=== PATIENT | male | born 1970 | race Caucasian/White ===

== ENCOUNTER 2018-07-07 16:04 | Inpatient (IN) | payer BC ==
[2018-07-07] MEDS ORDERED: Unasyn 3GM / NaCl 100ML 3 GM/100 ML IVPB IV STA (16:28)
[2018-07-07] MEDS ORDERED: TYLENOL 325 MG PO STA (16:28)
--- NOTE | 2018-07-07 16:37 | ERPHSYRPT ---
- History of Present Illness Time Seen by Provider: 07/07/18 16:20 Source: patient Exam Limitations: no limitations Patient Subjective Stated Complaint: Pt states "I have been feeling bad with body aches and went to [facility] and they sam blood and said I had a high white count and to get into the ED." Triage Nursing Assessment: PT alert and oriented X 3, skin pwd PT ambulates with a limp. Pt slightly tachypniec. PT has walking boot on his right foot. PT has wound noted to right foot. Physician History: patient with fever and chills- seen in OP clinic- elevated wBC and neg flu sent to ED fro evaluation- hx of Charcot foot -right- has sore x 3 weeks- drainage; no recent trauma or travel; no sore throat; cough productive brown; no sob; no N &V; no diarrhea; no known exposures Timing/Duration: today, yesterday (onset), worse Fever Severity: moderate Fever Therapy DOUBLE BACKER: Ibuprofen Associated Symptoms: cough, diaphoresis, headache, muscle aches, No nausea/ vomiting, No rhinorrhea, No shortness of breath, No sore throat, No stiff neck, No syncope, No weakness International travel in last 2 weeks: No Allergies/Adverse Reactions: No Known Drug Allergies Allergy (Verified 07/07/18 16:30) Home Medications: Amlodipine Besylate 10 mg PO DAILY 07/07/18 [History] Fenofibrate Nanocrystallized [Fenofibrate] 48 mg PO DAILY 07/07/18 [History] Gabapentin 600 mg PO DAILY 07/07/18 [History] Insulin Glargine,Hum.rec.anlog [Lantus Solostar] 100 units IM DAILY 07/07/18 [ History] Lisinopril 40 mg PO DAILY 07/07/18 [History] cloNIDine HCl [Clonidine HCl] 0.1 mg PO DAILY 07/07/18 [History] Hx Tetanus, Diphtheria Vaccination/Date Given: Yes Hx Influenza Vaccination/Date Given: Yes Hx Pneumococcal Vaccination/Date Given: No Immunizations Up to Date: Yes - Review of Systems Constitutional: Chills Eyes: No Symptoms Ears, Nose, & Throat: No Symptoms Respiratory: Cough, No Dyspnea, No Wheezing Cardiac: No Chest Pain, No Palpitations, No Syncope Abdominal/Gastrointestinal: No Abdominal Pain, No Nausea, No Vomiting, No Diarrhea Genitourinary Symptoms: No Dysuria, No Frequency, No Hematuria, No Hesitancy Musculoskeletal: Myalgias, No Back Pain, No Fall, No Injury, No Joint Pain Skin: Other (open ulcer bottom lateral left foot) Neurological: Headache, No Dizziness, No Focal Weakness, No Seizure, No Vertigo Psychological: No Symptoms Endocrine: No Symptoms Hematologic/Lymphatic: No Symptoms Immunological/Allergic: No Symptoms - Past Medical History Pertinent Past Medical History: Yes Neurological History: No Pertinent History ENT History: No Pertinent History Cardiac History: Hypertension Respiratory History: Pneumonia Endocrine Medical History: Diabetes Type II Musculoskeletal History: Other GI Medical History: No Pertinent History History: No Pertinent History Psycho-Social History: No Pertinent History Male Reproductive Disorders: No Pertinent History - Past Surgical History Past Surgical History: No Neuro Surgical History: No Pertinent History Cardiac: No Pertinent History Respiratory: No Pertinent History Gastrointestinal: No Pertinent History Genitourinary: No Pertinent History Musculoskeletal: No Pertinent History Male Surgical History: No Pertinent History - Social History Smoking Status: Never smoker Exposure to second hand smoke: Yes Alcohol Use: None Drug Use: none Patient Lives Alone: No Significant Family History: no pertinent family hx - Nursing Vital Signs Nursing Vital Signs: Initial Vital Signs Temperature 101.8 F 07/07/18 16:21 Pulse Rate 114 H 07/07/18 16:21 Respiratory Rate 22 07/07/18 16:21 Blood Pressure 179/88 07/07/18 16:21 O2 Sat by Pulse Oximetry 94 L 07/07/18 16:21 Pain Scale Pain Intensity 6 - Physical Exam General Appearance: moderate distress, alert, obese, other (ill appearing) Eye Exam: PERRL/EOMI, eyes nml inspection, No photophobia ENT Exam: normal ENT inspection, no apparent trauma, hearing grossly normal, TMs normal, pharynx normal, airway intact, No nasal congestion, No nasal drainage, No pharyngeal erythema, No tonsillar exudate, No trismus Neck Exam: normal inspection, non-tender, supple, full range of motion, trachea midline, No JVD Respiratory Exam: lungs clear, no respiratory distress, no accessory muscle use , decreased breath sounds, decreased air movement, No normal breath sounds, No chest non-tender, No respiratory distress, No crackles/rales, No rhonchi, No stridor, No wheezing, No pleural rub Cardiovascular/Chest Exam: normal heart sounds, regular rate/rhythm, normal peripheral pulses, tachycardia (114), No edema, No JVD Gastrointestinal/Abdominal Exam: soft, non tender, no distention, no guarding, no organomegaly, normal bowel sounds, No distended, No guarding, No rebound, No hepatomegaly Rectal Exam: deferred Extremity Exam: non-tender, normal range of motion, normal capillary refill, no calf tenderness, no pedal edema, No normal inspection (left foot changes of Charcot foot with open ulcer bottom left heel- culture take), No calf tenderness , No isabel's sign Neurologic Exam: alert, oriented x 3, cooperative, fuel cell designer II-XII nml as tested, normal mood/affect, nml cerebellar function, nml station & gait Skin Exam: normal color, warm, dry, decubitus (post bottom left foot), No rash, No petechiae, No cyanosis Lymphatic: No adenopathy SpO2 Interpretation: borderline oxygenation SpO2: 94 O2 Delivery: Room Air - Course Nursing assessment & vital signs reviewed: Yes - Radiology Exams Chest X-ray Interpretation: Reviewed by me, Teleradiologist Report, Negative, Other ( chronic changes only) Ordered Tests: Active Orders 24 hr Category Date Time Status Bedrest with BRP/BSC ROUTINE Activity 07/07/18 17:44 Ordered Accucheck ACHS Care 07/07/18 17:42 Ordered Accucheck STAT Care 07/07/18 16:28 Active Call Admit Doctor for Orders ON ADMISSION Care 07/07/18 17:43 Ordered Code Status Order ROUTINE Care 07/07/18 17:42 Ordered IV Care Q6H Care 07/07/18 17:42 Ordered IV Insertion STAT Care 07/07/18 16:[address] in Observation ROUTINE Care 07/07/18 17:42 Ordered Pulse Oximetry (ED) STAT Care 07/07/18 16:28 Active Rectal Temperature STAT Care 07/07/18 16:28 Active Saman Evans Apply ROUTINE Care 07/07/18 17:42 Ordered Weight,Daily 0600 Care 07/07/18 17:42 Ordered 2000 Calorie ADA Diet 07/07/18 Dinner Ordered CHEST 1 VIEW (PORTABLE) Stat Exams 07/07/18 16:28 Completed BLOOD CULTURE Stat Lab 07/07/18 16:38 Received CMP Stat Lab 07/07/18 16:36 Completed CULTURE,WOUND Stat Lab 07/07/18 16:39 Received Lactic Acid Stat Lab 07/07/18 16:28 Results Urinalysis with Microscopy Stat Lab 07/07/18 Uncollected Transfer Order Routine Transfer 07/07/18 Ordered Medication Summary Generic Name Dose Route Start Last Admin Trade Name Freq PRN Reason Stop Dose Admin Lactated Ringer's 1,000 mls @ 999 mls/hr 07/07/18 16:30 07/07/18 17:17 Lactated Ringers IV 07/07/18 19:30 999 mls/hr .Q1H1M JAMES Administration Azithromycin 500 mg in 250 mls @ 250 mls/hr 07/07/18 17:41 Zithromax 500 Mg/ 250 Ml Nacl Premix IV 07/07/18 18:40 STAT STA Discontinued Medications Generic Name Dose Route Start Last Admin Trade Name Freq PRN Reason Stop Dose Admin Acetaminophen 650 mg 07/07/18 16:28 07/07/18 16:53 Tylenol 325 Mg PO 07/07/18 16:29 650 mg STAT STA Administration Acetaminophen Confirm 07/07/18 16:49 Tylenol 325 Mg Administered 07/07/18 16:50 Dose 650 mg .ROUTE .STK-MED ONE Ampicillin Sodium/Sulbactam Sodium 3 gm in 100 mls @ 200 mls/hr 07/07/18 16: 28 07/07/18 16:54 Unasyn 3gm / Nacl 100ml IV 07/07/18 16:57 200 mls/hr STAT STA 200 mls/hr Administration Ampicillin Sodium/Sulbactam Sodium Confirm 07/07/18 16:49 Unasyn 3gm / Nacl 100ml Administered 07/07/18 16:50 Dose 3 gm in 100 mls @ ud .ROUTE .STK-MED ONE Lab/Rad Data: Laboratory Result Diagrams 07/07/18 16:36 Laboratory Results 07/07/18 07/07/18 Range/Units 16:36 16:28 Sodium 135 L (137-145) mmol/L Potassium 4.2 (3.5-5.1) mmol/L Chloride 108 H (98-107) mmol/L Carbon Dioxide 17 L (22-30) mmol/L Anion Gap 14.2 (5-15) MEQ/L BUN 37 H (9-20) mg/dL Creatinine 2.59 H (0.66-1.25) mg/dL Estimated GFR 28.3 ML/MIN Glucose 242 H (74-106) mg/dL Lactic Acid 2.0 (0.4-2.0) Calcium 8.7 (8.4-10.2) mg/dL Total Bilirubin 1.10 (0.2-1.3) mg/dL AST 22 (17-59) U/L ALT 20 (0-50) U/L Alkaline Phosphatase 119 (38-126) U/L Serum Total Protein 7.0 (6.3-8.2) g/dL Albumin 3.1 L (3.5-5.0) g/dL reviewed - Progress Progress: re-examined (after meds and IV fluids) Progress Note: 07/07/18 16:38 sent from op clinic with elevated WBC - flu test neg; will assume septic- treat fever- push fluids- start ATBS check lactate and get CXR 07/07/18 16:58 CXR unremarkable; WBC 26.5 left shift H?H ; plt 262; lactate 2.0 will continue fluids' monitor and recheck 07/07/18 17:20 family at bedside; no changes on exam; renal function off bun/cr = 37/2.59; low Na 135; K= ok; no anion gap 07/07/18 17:39 Dr Hyatt consulted and will place on OBS; patient and family notified Discussed with : Edmar (consulted adn will place in OBS) Will see patient in: hospital (observation) Counseled pt/family regarding: lab results, diagnosis, need for follow-up, rad results - Departure Departure Disposition: Observation Clinical Impression: FUO (fever of unknown origin), elevated WBC 26.5, elevated lactate 2.0, Renal failure (ARF), acute on chronic, Foot ulcer Condition: Fair Critical Care Time: No Referrals: DONATO ORTIZ [Primary Care Provider] - LEANDRO HYATT [ACTIVE STAFF] -
[2018-07-07] MEDS ORDERED: TYLENOL 325 MG ONE (16:49)
[2018-07-07] MEDS ORDERED: Lactated Ringers 1,000 ML IV ONE (16:49)
[2018-07-07] MEDS ORDERED: Unasyn 3GM / NaCl 100ML 3 GM/100 ML IVPB ONE (16:49)
[2018-07-07] MEDS: Lactated Ringers 1,000 ML IV SCH ×3 (16:54→18:47)
[2018-07-07 17:00] LABS: ALBUMIN 3.1 g/dL (3.5-5.0); ANION GAP 14.2 MEQ/L (5-15); BILIRUBIN,TOTAL 1.1 mg/dL (0.2-1.3); Calcium 8.7 mg/dL (8.4-10.2); Creatinine 1 2.59 mg/dL (0.66-1.25); Potassium 4.2 mmol/L (3.5-5.1)
--- NOTE | 2018-07-07 17:05 | XRAY ---
Indication: Possible sepsis. Comparison: November 01, 2009. Portable apical lordotic chest is clear again with a few incidental tiny calcified granulomas. Heart and mediastinal structures within normal limits for AP portable technique again with paratracheal calcified node. Bony thorax intact again with mild degenerative changes. Impression: Nonacute chest with chronic features.
[2018-07-07] MEDS ORDERED: Lactated Ringers 2,000 ML IV ONE (17:11)
[2018-07-07] MEDS ORDERED: Zithromax 500 MG/ 250 ML NaCl Premix 500 MG/250 ML IVPB IV STA (17:41)
[2018-07-07] MEDS ORDERED: Zithromax 500 MG/ 250 ML NaCl Premix 500 MG/250 ML IVPB IV ONE (17:50)
[2018-07-07] MEDS ORDERED: PHARMACY DOSING REQUIRED: VANCOMYCIN IV ONE (18:49)
[2018-07-07] MEDS ORDERED: PHARMACY DOSING REQUEST MC ONE (18:49)
[2018-07-07] MEDS: Sodium Chloride 0.9% 1000 ML 1,000 ML IV SCH (20:30)
[2018-07-07] MEDS ORDERED: Vancomycin 1GM/ Ns 250ML*** 500 ML IV ONE (20:55)
[2018-07-07] MEDS ORDERED: Zosyn 2.25 GM IV ONE (20:56)
[2018-07-07] MEDS ORDERED: D5w 100ML Mini Bag 100 ML 100 ML IV ONE (20:56)
[2018-07-07] MEDS ORDERED: VANCOCIN 1 GM VIAL*** 2 GM in Sodium Chloride 0.9% 250 ML 250 ML IV ONE (21:00)
[2018-07-07] MEDS: Catapres 0.1 MG PO SCH (21:06)
[2018-07-07] MEDS ORDERED: Lantus Insulin SQ SCH (22:00)
[2018-07-07] MEDS: NovoLOG Insulin SQ PRN (22:02)
[2018-07-07] MEDS: NEURONTIN 300 MG PO PRN (22:07)
[2018-07-08] MEDS: TYLENOL 325 MG PO PRN ×4 (01:20→22:28)
[2018-07-08] MEDS: Zosyn 2.25 GM 2.25 GM in D5w 100ML Mini Bag 100 ML 100 ML IV SCH ×4 (01:25→17:00)
[2018-07-08 05:11] LABS: Hematocrit 41.9 % (42-50); Hemoglobin 13.8 gm/dl (12.5-18.0); Mean Cell Volume 86.6 fl (78-100); Mean Corpuscular Hemoglobin 28.5 pg (26-32); Mean Corpuscular Hgb Concent. 32.9 g/dl (32-36); Mean Platelet Volume 9.4 fl (6-9.5); Platelet Count 228 K/mm3 (150-450); Red Blood Count 4.84 M/mm3 (4.1-5.6); Red Cell Distribution Width 15.1 % (11.5-14.0); White Blood Count 22.8 K/mm3 (4.0-10.5)
[2018-07-08 05:28] LABS: ANION GAP 11.3 MEQ/L (5-15); Calcium 7.9 mg/dL (8.4-10.2); Creatinine 1 2.51 mg/dL (0.66-1.25); Potassium 4.3 mmol/L (3.5-5.1)
[2018-07-08 05:46] LABS: Appearance CLOUDY (CLEAR); Bilirubin NEGATIVE (NEGATIVE); Blood MODERATE Ery/ul (0-5); Glucose >=500 mg/dL (NEGATIVE); Hyaline Casts >50 /LPF (0-2); Ketones NEGATIVE (NEGATIVE); Leukocyte Esterase NEGATIVE (NEGATIVE); Mucus SLIGHT /HPF (NEGATIVE); Nitrite NEGATIVE (NEGATIVE); Protein,Urine Dip >=500 (Negative); Specific Gravity 1.029 (1.005-1.025); Urobilinogen NEGATIVE mg/dL (0-1)
[2018-07-08 06:05] LABS: ANISOCYTOSIS 2+; BAND 19 % (0.0-2.0); Eosinophil 3 % (0.00-3.0); Lymphocytes 1 % (24-44); Monocyte 7 % (0.0-12.0); Neutrophils 70 % (36.-66.); Poikilocytosis 1+; Total Cells Counted 100
[2018-07-08 06:06] LABS: Platelet Estimate NORMAL (NORMAL)
[2018-07-08] MEDS ORDERED: D5w 100ML Mini Bag 100 ML 100 ML IV ONE (06:35)
[2018-07-08] MEDS ORDERED: Zosyn 2.25 GM IV ONE (06:35)
[2018-07-08] MEDS: NovoLOG Insulin SQ PRN (07:48)
[2018-07-08] MEDS: Lantus Insulin SQ SCH ×2 (07:48→22:19)
[2018-07-08] MEDS: MORPHINE SULFATE 2 MG INJ IV PRN ×4 (07:56→22:27)
--- NOTE | 2018-07-08 09:10 | HP ---
HISTORY OF PRESENT ILLNESS: This is a 48 year-old patient without a physician in the local area. He usually sees Dr. Jesus Alberto Boykin in [facility]. He presented first to [facility] and then to the emergency department. He reports starting Thursday night he started to have a fever and chills. He went to [facility] yesterday and was seen and had a STAT CBC drawn where his white blood cell count was elevated. He was then told to go to the emergency department for further evaluation and treatment. The patient reports he had a sore on his right foot for the past two weeks that he had seen Dr. Willis for starting last week and they are putting topical antibiotic on this b.i.d. He reports he is putting MediHoney and iodine on it. He is not on any oral antibiotics for that. The patient denies having any central lines, PICC lines or any kind of hardware. He does have a history of osteomyelitis of his right foot that was due to Staphylococcus aureus over a year ago. He reports he had a cough for a week that was productive of sputum that is brown-oliver in color. The patient denies any abdominal pain. No nausea or vomiting. Dr. Boykin manages his diabetes. REVIEW OF SYSTEMS: He has had no dyspnea. No wheezing. No dysuria. No abdominal pain. His appetite has been good. Otherwise review of systems is negative. PAST MEDICAL HISTORY: Hypertension, diabetes mellitus type 2, Charcot foot on the left, history of osteomyelitis. PAST SURGICAL HISTORY: He reports five years ago he had fifth digit of his left foot removed. He reports one year ago he had surgery on his right foot for infection. MEDICATIONS: Please see the medication reconciliation list which I have reviewed. ALLERGIES: NKDA. SOCIAL HISTORY: No tobacco. No alcohol use. He lives with his mom and dad. He works at a place called [employer] at [employer]. FAMILY HISTORY: His mother is living and is healthy. His father is living and has diabetes. PHYSICAL EXAMINATION: VITAL SIGNS: Temperature current 101.5F, temperature max 101.5F, heart rate 102 to 111, respiratory rate 18, blood pressure 146 to 184 over 73 to 85, weight 149.3 kg. Oxygen saturation 91 to 94% on room air. GENERAL: The patient is a pleasant man lying in bed in no acute distress. CVS: He has a regular rate and rhythm. No murmurs, gallops or rubs. CHEST: Clear to auscultation bilaterally. No crackles or wheezes. ABDOMEN: Obese, soft, nontender, nondistended with normal bowel sounds. EXTREMITIES: His right foot has a deformity, some redness and swelling around his toes. On the lateral aspect he has an open 3 x 3 cm ulcer that is draining some serosanguinous fluid. He denies any tenderness of his foot. LABORATORY DATA AND TESTS: His white blood cell count is 22,800 with 70% neutrophils, 19% bands. Sodium 134, creatinine 2.5, glucose 236. UA 6 to 10 white blood cells, greater than 500 glucose. Blood cultures were also growing gram-positive cocci. He has a wound culture pending. I added a urine culture today to the urine he had done in the emergency room. ASSESSMENT AND PLAN: 1) SEPSIS: He was started on Zosyn and Vancomycin with family to help dose yesterday. His blood pressure is stable. Will continue Tylenol as needed for fever. Continue with telemetry. Will ask PT to see him for his wound. I will order sputum culture as well. He is on IV fluids at a rate of 120 ml/hour. I plan to recheck blood work in the morning and continue with close monitoring. 2) DIABETES MELLITUS TYPE 2: Will continue with insulin. His hemoglobin A1C was 6.98 on admission. He may be having some hyperglycemia at this time due to the infection. 3) DIABETIC FOOT ULCER: Will ask PT to see him for evaluation and treatment and have an x-ray of his right foot to try to look for possible osteomyelitis. 4) HYPERTENSION: Will continue with home antihypertensive.
--- NOTE | 2018-07-08 09:12 | XRAY ---
Indication: Ulcer. Surgery 1 year ago for infection. Comparison: None 3 nonweightbearing views demonstrates osteopenia and marked chronic appearing deformity mid to hindfoot including ankle joint. 3rd-5th metatarsals and multiple tarsal bones are absent with multiple round radiopacities presumed postoperative. Diffuse soft tissue swelling/edema and scattered vascular calcifications. No acute fracture, suspicious bony lesions or osseous destructive process.
[2018-07-08] MEDS: NORVASC 5 MG PO SCH (09:49)
[2018-07-08] MEDS: ENOXAPARIN SODIUM SQ SCH (09:49)
[2018-07-08] MEDS: Tricor 145 MG PO SCH (09:50)
[2018-07-08] MEDS: Catapres 0.1 MG PO SCH ×2 (09:50→22:18)
[2018-07-08] MEDS: Sodium Chloride 0.9% 1000 ML 1,000 ML IV SCH ×3 (09:56→16:57)
[2018-07-08] MEDS ORDERED: Zestril 20 MG PO SCH (10:00)
[2018-07-08] MEDS: VANCOCIN 1 GM VIAL*** 1.5 GM in Sodium Chloride 0.9% 500 ML 500 ML IV SCH (18:33)
[2018-07-09] MEDS: Zosyn 2.25 GM 2.25 GM in D5w 100ML Mini Bag 100 ML 100 ML IV SCH ×4 (03:03→17:41)
[2018-07-09] MEDS: TYLENOL 325 MG PO PRN (03:11)
[2018-07-09] MEDS: MORPHINE SULFATE 2 MG INJ IV PRN ×4 (04:17→20:38)
[2018-07-09] MEDS: Sodium Chloride 0.9% 1000 ML 1,000 ML IV SCH ×2 (04:32→20:38)
[2018-07-09 06:10] LABS: Hematocrit 37.9 % (42-50); Hemoglobin 12.2 gm/dl (12.5-18.0); Mean Cell Volume 89.2 fl (78-100); Mean Corpuscular Hemoglobin 28.7 pg (26-32); Mean Corpuscular Hgb Concent. 32.2 g/dl (32-36); Platelet Count 224 K/mm3 (150-450); Red Blood Count 4.25 M/mm3 (4.1-5.6); Red Cell Distribution Width 15.4 % (11.5-14.0); White Blood Count 13.9 K/mm3 (4.0-10.5)
[2018-07-09 06:26] LABS: ANION GAP 11.2 MEQ/L (5-15); Calcium 7.5 mg/dL (8.4-10.2); Creatinine 1 3.01 mg/dL (0.66-1.25)
[2018-07-09 06:46] LABS: BAND 8 % (0.0-2.0); Eosinophil 2 % (0.00-3.0); Lymphocytes 4 % (24-44); Monocyte 4 % (0.0-12.0); Neutrophils 82 % (36.-66.); Total Cells Counted 100
[2018-07-09 06:47] LABS: Platelet Estimate NORMAL (NORMAL)
[2018-07-09] MEDS: Lantus Insulin SQ SCH ×2 (08:22→20:45)
--- NOTE | 2018-07-09 08:40 | PCM.NOTE ---
Date and Time: 07/09/18833 Subjective Assessment: Patient reports his fever broke this AM and he feels better. He reports his appetite has been ok. He reports he always has pain in his right foot. - Review of Systems Constitutional: Fever Eyes: No Symptoms Ears, Nose, & Throat: No Symptoms Respiratory: No Symptoms Cardiac: No Symptoms Abdominal/Gastrointestinal: No Symptoms Genitourinary Symptoms: No Symptoms Musculoskeletal: No Symptoms Skin: No Symptoms Objective Exam General Appearance: no apparent distress, alert, obese Neurologic Exam: alert, cooperative, normal mood/affect Skin Exam: normal color, warm, dry, other (right foot dressed; obvious deformity (chronic)) Respiratory Exam: normal breath sounds, lungs clear, No crackles/rales, No rhonchi, No wheezing Cardiovascular Exam: regular rate/rhythm, normal heart sounds, No murmur, No friction rub, No gallop Gastrointestinal/Abdomen Exam: soft, normal bowel sounds, No tenderness, No distention OBJECTIVE DATA Vital Signs: Vital Signs - 24 hr Temp Pulse Resp BP Pulse Ox 07/09/18 07:08 99.9 F 94 H 21 136/66 92 L 07/09/18 04:00 102.2 F 105 H 20 128/71 91 L 07/09/18 00:23 102.9 F 117 H 20 132/68 94 L 07/08/18 20:00 102.5 F 104 H 20 125/81 94 L 07/08/18 16:31 101.2 F 105 H 22 148/75 97 07/08/18 12:00 100.7 F 99 H 20 169/76 94 L Pain Assessment - Last Documented Pain Intensity 3 Pain Scale Used 0-10 Pain Scale Intake and Output: Intake & Output 07/07/18 07/08/18 07/09/18 07/10/18 06:59 06:59 06:59 06:59 Intake Total 4399 Output Total 800 600 Balance -800 3799 Weight 149.3 kg Lab Results: Accuchecks Date 07/09/18 Date 07/08/18 Date 07/08/18 Time 21:00 Time 16:07 Time 11:52 Accucheck Value: 200 Accucheck Value: 204 Accucheck Value: 207 Lab Results-Last 24 Hours 07/09/18 07/09/18 Range/Units 05:48 05:48 WBC 13.9 H (4.0-10.5) K/mm3 RBC 4.25 (4.1-5.6) M/mm3 Hgb 12.2 L (12.5-18.0) gm/dl Hct 37.9 L (42-50) % MCV 89.2 (78-100) fl MCH 28.7 (26-32) pg MCHC 32.2 (32-36) g/dl RDW 15.4 H (11.5-14.0) % Plt Count 224 (150-450) K/mm3 MPV 10.0 H (6-9.5) fl Segmented Neutrophils 82 H (36.-66.) % Band Neutrophils 8 H (0.0-2.0) % Lymphocytes (Manual) 4 L (24-44) % Monocytes (Manual) 4 (0.0-12.0) % Eosinophils (Manual) 2 (0.00-3.0) % Platelet Estimate NORMAL (NORMAL) RBC Morphology NORMAL Sodium 135 L (137-145) mmol/L Potassium 4.0 (3.5-5.1) mmol/L Chloride 108 H (98-107) mmol/L Carbon Dioxide 19 L (22-30) mmol/L Anion Gap 11.2 (5-15) MEQ/L BUN 37 H (9-20) mg/dL Creatinine 3.01 H (0.66-1.25) mg/dL Estimated GFR 23.8 ML/MIN Glucose 156 H (74-106) mg/dL Calcium 7.5 L (8.4-10.2) mg/dL Radiology Exams: Radiology Procedures Category Date Time Status CHEST 1 VIEW (PORTABLE) Stat Exams 07/07/18 16:28 Completed FOOT (MINIMUM 3 VIEWS) Urgent Exams 07/08/18 08:43 Completed MRI LOWER EXT JOINT W&WO CON [MRI] Routine Exams 07/09/18 Ordered Assessment/Plan (1) Sepsis Current Visit: No Status: Acute Assessment & Plan: WBC improving with IV zosyn and Vancomcyin. Blood culture ID and sensitivity pending. Wound culture growing Staph aureus susceptible to Pencillin and vancomycin. X-ray of foot did not who osteo but course of ulcer is fairly recent. Will check MRI to rule out osteomyelitis as this would affect how long a course of antibiotics he is on. Will decrease IV fluids. Continue close monitoring. (2) Diabetic foot ulcer associated with type 2 diabetes mellitus Current Visit: No Status: Acute Assessment & Plan: Continue PT; also treatment as above for sepsis and he will need to follow up with Dr. Willis as an outpatient. We do not have a engagement director that comes to our hospital. Code(s): E11.621 - TYPE 2 DIABETES MELLITUS WITH FOOT ULCER; L97.509 - NON- PRESSURE CHRONIC ULCER OTH PRT UNSP FOOT W UNSP SEVERITY (3) Type II diabetes mellitus, well controlled Current Visit: Yes Status: Acute Assessment & Plan: Continue current insulin doses. Code(s): E11.9 - TYPE 2 DIABETES MELLITUS WITHOUT COMPLICATIONS (4) Renal failure (ARF), acute on chronic Current Visit: Yes Status: Acute Assessment & Plan: Will stop lisinopril. Antibiotics are being dosed for his renal impairment. May need to see contact lens manufacturer if creatinine does not improve. Code(s): N17.9 - ACUTE KIDNEY FAILURE, UNSPECIFIED; N18.9 - CHRONIC KIDNEY DISEASE, UNSPECIFIED (5) Hypertension Current Visit: Yes Status: Acute Assessment & Plan: Currently well controlled. Code(s): I10 - ESSENTIAL (PRIMARY) HYPERTENSION (6) Charcot foot due to diabetes mellitus Current Visit: Yes Status: Acute Code(s): E11.610 - TYPE 2 DIABETES MELLITUS W DIABETIC NEUROPATHIC ARTHROPATHY
[2018-07-09] MEDS: Tricor 145 MG PO SCH (09:45)
[2018-07-09] MEDS: NORVASC 5 MG PO SCH (09:45)
[2018-07-09] MEDS: ENOXAPARIN SODIUM SQ SCH (09:45)
[2018-07-09] MEDS: Catapres 0.1 MG PO SCH ×2 (09:46→20:45)
[2018-07-09] MEDS ORDERED: TROUGH DRUG LEVELS IJ ONE (11:00)
[2018-07-09] MEDS: VANCOCIN 1 GM VIAL*** 1.5 GM in Sodium Chloride 0.9% 500 ML 500 ML IV SCH (13:09)
[2018-07-09] MEDS: TYLENOL EXTRA STRENGTH 500 MG PO PRN (17:41)
[2018-07-09] MEDS: NovoLOG Insulin SQ PRN (20:46)
[2018-07-09] MEDS: NEURONTIN 300 MG PO PRN (23:59)
[2018-07-10] MEDS: TYLENOL EXTRA STRENGTH 500 MG PO PRN ×2 (03:13→20:21)
[2018-07-10 06:05] LABS: ANION GAP 12.4 MEQ/L (5-15); Calcium 7.7 mg/dL (8.4-10.2); Creatinine 1 3.39 mg/dL (0.66-1.25); Potassium 3.8 mmol/L (3.5-5.1)
[2018-07-10 06:30] LABS: Hematocrit 35.7 % (42-50); Hemoglobin 11.3 gm/dl (12.5-18.0); Mean Cell Volume 88.8 fl (78-100); Mean Corpuscular Hemoglobin 28.1 pg (26-32); Mean Corpuscular Hgb Concent. 31.7 g/dl (32-36); Platelet Count 242 K/mm3 (150-450); Red Blood Count 4.02 M/mm3 (4.1-5.6); Red Cell Distribution Width 15.8 % (11.5-14.0); White Blood Count 15.5 K/mm3 (4.0-10.5)
[2018-07-10] MEDS: Zosyn 2.25 GM 2.25 GM in D5w 100ML Mini Bag 100 ML 100 ML IV SCH ×6 (06:47→23:51)
[2018-07-10] MEDS: Lantus Insulin SQ SCH ×2 (08:55→20:46)
[2018-07-10] MEDS: Tricor 145 MG PO SCH (09:11)
[2018-07-10] MEDS: Catapres 0.1 MG PO SCH ×2 (09:11→20:46)
[2018-07-10] MEDS: ENOXAPARIN SODIUM SQ SCH (09:11)
[2018-07-10] MEDS: MORPHINE SULFATE 2 MG INJ IV PRN ×2 (09:11→20:48)
[2018-07-10 10:08] LABS: BAND 2 % (0.0-2.0); Basophil 1 % (0.0-1.0); Eosinophil 3 % (0.00-3.0); Lymphocytes 5 % (24-44); Monocyte 10 % (0.0-12.0); Neutrophils 79 % (36.-66.); Total Cells Counted 100; Toxic Granulation 2+
[2018-07-10 10:09] LABS: Platelet Estimate NORMAL (NORMAL)
[2018-07-10] MEDS: NORVASC 5 MG PO SCH (10:25)
[2018-07-10] MEDS: Sodium Chloride 0.9% 1000 ML 1,000 ML IV SCH (11:10)
[2018-07-10] MEDS: VANCOCIN 1 GM VIAL*** 1.5 GM in Sodium Chloride 0.9% 500 ML 500 ML IV SCH (13:33)
[2018-07-10] MEDS: NovoLOG Insulin SQ PRN (17:09)
[2018-07-10] MEDS: NEURONTIN 300 MG PO PRN (20:21)
[2018-07-10] MEDS ORDERED: Tums EX 750 MG PO PRN (20:30)
--- NOTE | 2018-07-10 21:21 | XRAY ---
Indication: Pain and swelling. Comparison: July 08, 2018. 3 nonweightbearing views of the right foot unchanged again demonstrating diffuse soft tissue swelling/edema, osteopenia, marked chronic bony deformities, surgical resection 3rd-5th metatarsals/tarsal bones, multiple round iatrogenic radiopacities, and scattered vascular calcifications. No new/acute findings. Comment: Preliminary interpretation was made by [facility]. No discrepancy.
[2018-07-11 05:45] LABS: Hematocrit 36.2 % (42-50); Hemoglobin 11.7 gm/dl (12.5-18.0); Mean Cell Volume 87.9 fl (78-100); Mean Corpuscular Hemoglobin 28.3 pg (26-32); Mean Corpuscular Hgb Concent. 32.3 g/dl (32-36); Mean Platelet Volume 9.7 fl (6-9.5); Platelet Count 268 K/mm3 (150-450); Red Blood Count 4.12 M/mm3 (4.1-5.6); Red Cell Distribution Width 15.4 % (11.5-14.0); White Blood Count 16.7 K/mm3 (4.0-10.5)
[2018-07-11 05:52] LABS: ANION GAP 12.6 MEQ/L (5-15); Calcium 8.1 mg/dL (8.4-10.2); Creatinine 1 3.58 mg/dL (0.66-1.25); Potassium 3.8 mmol/L (3.5-5.1)
[2018-07-11] MEDS: Zosyn 2.25 GM 2.25 GM in D5w 100ML Mini Bag 100 ML 100 ML IV SCH ×3 (05:52→17:35)
[2018-07-11 06:28] LABS: BAND 1 % (0.0-2.0); Eosinophil 5 % (0.00-3.0); Lymphocytes 8 % (24-44); Monocyte 7 % (0.0-12.0); Neutrophils 79 % (36.-66.); Platelet Estimate NORMAL (NORMAL); Polychromasia 1+; Total Cells Counted 100; Toxic Granulation 2+
[2018-07-11] MEDS ORDERED: Tums EX 750 MG PO PRN (07:45)
[2018-07-11] MEDS: Lantus Insulin SQ SCH ×2 (08:12→21:47)
[2018-07-11] MEDS: Tricor 145 MG PO SCH (09:26)
[2018-07-11] MEDS: Catapres 0.1 MG PO SCH ×2 (09:27→21:47)
[2018-07-11] MEDS: NORVASC 5 MG PO SCH (09:27)
[2018-07-11] MEDS: ENOXAPARIN SODIUM SQ SCH (09:27)
[2018-07-11] MEDS: NEURONTIN 300 MG PO PRN (12:24)
[2018-07-11] MEDS: TYLENOL EXTRA STRENGTH 500 MG PO PRN (12:24)
[2018-07-11] MEDS: VANCOCIN 1 GM VIAL*** 1.5 GM in Sodium Chloride 0.9% 500 ML 500 ML IV SCH (13:43)
[2018-07-11] MEDS: NovoLOG Insulin SQ PRN (20:37)
[2018-07-11] MEDS: MORPHINE SULFATE 2 MG INJ IV PRN (21:53)
[2018-07-11] MEDS: Sodium Chloride 0.9% 1000 ML 1,000 ML IV SCH (21:53)
[2018-07-12] MEDS: Zosyn 2.25 GM 2.25 GM in D5w 100ML Mini Bag 100 ML 100 ML IV SCH ×4 (00:45→17:09)
[2018-07-12] MEDS: TYLENOL EXTRA STRENGTH 500 MG PO PRN ×2 (01:03→22:02)
[2018-07-12 06:07] LABS: BASOPHIL % 0.4 % (0.0-0.4); Basophil (Absolute #) 0.06 (0-0.4); Eosinophil % 3.3 % (0.00-5.0); Eosinophil (Absolute #) 0.55 (0-0.5); Granulocyte Absolute (ANC) 12.64 (1.4-6.9); Granulocytes % 75.3 % (36.0-66.0); Hematocrit 38.1 % (42-50); Hemoglobin 12.2 gm/dl (12.5-18.0); Lymphocyte (Absolute #) 1.48 (1.0-4.6); Lymphocytes % 8.8 % (24.0-44.0); Mean Cell Volume 87.6 fl (78-100); Mean Platelet Volume 9.4 fl (6-9.5); Monocyte (Absolute #) 2.04 (0.0-1.3); Monocytes % 12.2 % (0.0-12.0); Platelet Count 325 K/mm3 (150-450); Red Blood Count 4.35 M/mm3 (4.1-5.6); Red Cell Distribution Width 15.4 % (11.5-14.0); White Blood Count 16.8 K/mm3 (4.0-10.5)
[2018-07-12 06:34] LABS: ANION GAP 12.9 MEQ/L (5-15); Creatinine 1 3.55 mg/dL (0.66-1.25); Potassium 3.8 mmol/L (3.5-5.1)
[2018-07-12 08:00] LABS: BAND 1 % (0.0-2.0); Eosinophil 5 % (0.00-3.0); Lymphocytes 7 % (24-44); Monocyte 3 % (0.0-12.0); Neutrophils 84 % (36.-66.); Platelet Estimate NORMAL (NORMAL); Total Cells Counted 100
[2018-07-12] MEDS: Lantus Insulin SQ SCH ×2 (08:52→22:02)
--- NOTE | 2018-07-12 08:55 | PCM.NOTE ---
Date and Time: 07/12/1854 Subjective Assessment: Patient reports he had less fever over the weekend. His appetite has been ok. He continues to have pain in his right foot. He reports the dressing has not been changed and PT, Marry Walker, said it could wait over the weekend. He could not tolerate lying on his back Thursday for a MRI of his right foot but he is willing to try again. He reported over the weekend, Dr. Beltrán mentioned surgery to him. - Review of Systems Constitutional: No Symptoms Eyes: No Symptoms Ears, Nose, & Throat: No Symptoms Respiratory: No Symptoms Cardiac: No Symptoms Abdominal/Gastrointestinal: No Symptoms Genitourinary Symptoms: No Symptoms Musculoskeletal: Other (right foot pain; open sore of right foot; right foot defomity) Objective Exam General Appearance: no apparent distress, obese Neurologic Exam: alert, cooperative, normal mood/affect Skin Exam: normal color, warm, dry, other (open wound about 3 x 3 cm on lateral aspect of right foot; swelling and redness of entire right foot with underlying deformity.) Respiratory Exam: normal breath sounds, lungs clear, No crackles/rales, No rhonchi, No wheezing Cardiovascular Exam: regular rate/rhythm, normal heart sounds, No murmur, No friction rub, No gallop Gastrointestinal/Abdomen Exam: soft, normal bowel sounds, No tenderness, No distention, No mass OBJECTIVE DATA Vital Signs: Vital Signs - 24 hr Temp Pulse Resp BP Pulse Ox 07/12/18 08:00 98.8 F 82 18 170/79 92 L 07/12/18 03:56 99.8 F 90 20 139/66 93 L 07/11/18 23:52 99.7 F 93 H 19 143/81 95 07/11/18 19:45 98.5 F 80 20 174/81 97 07/11/18 16:00 98.5 F 76 18 134/74 93 L 07/11/18 12:00 99.3 F 79 18 148/86 92 L Pain Assessment - Last Documented Pain Intensity 6 Pain Scale Used 0-10 Pain Scale Intake and Output: Intake & Output 07/10/18 07/11/18 07/12/18 07/13/18 06:59 06:59 06:59 06:59 Intake Total 1654 7942 8974 Output Total 400 Balance 2573 4472 4948 Weight 153.3 kg 152.5 kg 152.5 kg Lab Results: Accuchecks Date 07/12/18 Date 07/11/18 Date 07/11/18 Date 07/11/18 Time 07:30 Time 22:00 Time 16:30 Time 11:30 Accucheck Value: 143 Accucheck Value: 201 Accucheck Value: 171 Accucheck Value: 123 Lab Results-Last 24 Hours 07/11/18 07/12/18 07/12/18 Range/Units 11:00 04:00 06:00 WBC 16.8 H (4.0-10.5) K/mm3 RBC 4.35 (4.1-5.6) M/mm3 Hgb 12.2 L (12.5-18.0) gm/dl Hct 38.1 L (42-50) % MCV 87.6 (78-100) fl MCH 28.0 (26-32) pg MCHC 32.0 (32-36) g/dl RDW 15.4 H (11.5-14.0) % Plt Count 325 (150-450) K/mm3 MPV 9.4 (6-9.5) fl Gran % 75.3 H (36.0-66.0) % Eos # (Auto) 0.55 H (0-0.5) Absolute Lymphs (auto) 1.48 (1.0-4.6) Absolute Monos (auto) 2.04 H (0.0-1.3) Lymphocytes % 8.8 L (24.0-44.0) % Monocytes % 12.2 H (0.0-12.0) % Eosinophils % 3.3 (0.00-5.0) % Basophils % 0.4 (0.0-0.4) % Absolute Granulocytes 12.64 H (1.4-6.9) Segmented Neutrophils 84 H (36.-66.) % Band Neutrophils 1 (0.0-2.0) % Lymphocytes (Manual) 7 L (24-44) % Monocytes (Manual) 3 (0.0-12.0) % Eosinophils (Manual) 5 H (0.00-3.0) % Basophils # 0.06 (0-0.4) Platelet Estimate NORMAL (NORMAL) RBC Morphology NORMAL Sodium 135 L (137-145) mmol/L Potassium 3.8 (3.5-5.1) mmol/L Chloride 108 H (98-107) mmol/L Carbon Dioxide 18 L (22-30) mmol/L Anion Gap 12.9 (5-15) MEQ/L BUN 37 H (9-20) mg/dL Creatinine 3.55 H (0.66-1.25) mg/dL Estimated GFR 19.6 ML/MIN Glucose 165 H (74-106) mg/dL Calcium 8.0 L (8.4-10.2) mg/dL Vancomycin Trough 18.84 (10-20) ug/mL Radiology Exams: Radiology Procedures Category Date Time Status FOOT (MINIMUM 3 VIEWS) Routine Exams 07/10/18 10:58 Completed MRI LOW EXT JOINT W/O CONTRAST [MRI] Routine Exams 07/12/18 08:27 Ordered Assessment/Plan (1) Sepsis Current Visit: No Status: Acute Assessment & Plan: Continue vancomycin and zosyn. WBC continues to be elevated which concerns me for possible underlying osteomyelitis. Will try for MRI again today; if unable then may need surgical consultation. Blood and wound cultures have grown MSSA. Clinically, his foot shows little improvement. (2) Diabetic foot ulcer associated with type 2 diabetes mellitus Current Visit: No Status: Acute Assessment & Plan: Hgb A1C was fairly good and blood glucoses fairly well controlled at this time. Code(s): E11.621 - TYPE 2 DIABETES MELLITUS WITH FOOT ULCER; L97.509 - NON- PRESSURE CHRONIC ULCER OTH PRT UNSP FOOT W UNSP SEVERITY (3) Type II diabetes mellitus, well controlled Current Visit: Yes Status: Acute Code(s): E11.9 - TYPE 2 DIABETES MELLITUS WITHOUT COMPLICATIONS (4) Renal failure (ARF), acute on chronic Current Visit: Yes Status: Acute Assessment & Plan: Personal Lines Sales Rep has been consulted and plans to see the patient today. Code(s): N17.9 - ACUTE KIDNEY FAILURE, UNSPECIFIED; N18.9 - CHRONIC KIDNEY DISEASE, UNSPECIFIED (5) Hypertension Current Visit: Yes Status: Acute Assessment & Plan: Continue current medication. Code(s): I10 - ESSENTIAL (PRIMARY) HYPERTENSION (6) Charcot foot due to diabetes mellitus Current Visit: Yes Status: Acute Assessment & Plan: He sees Dr. Willis as an outpatient. Code(s): E11.610 - TYPE 2 DIABETES MELLITUS W DIABETIC NEUROPATHIC ARTHROPATHY
[2018-07-12] MEDS: Tricor 145 MG PO SCH (10:59)
[2018-07-12] MEDS: NORVASC 5 MG PO SCH (10:59)
[2018-07-12] MEDS: Catapres 0.1 MG PO SCH ×2 (11:00→22:02)
[2018-07-12] MEDS: ENOXAPARIN SODIUM SQ SCH (11:00)
[2018-07-12] MEDS: Sodium Chloride 0.9% 1000 ML 1,000 ML IV SCH (11:52)
[2018-07-12] MEDS ORDERED: VANCOCIN 1 GM VIAL*** 1.25 GM in Sodium Chloride 0.9% 250 ML 250 ML IV SCH (12:00)
[2018-07-12] MEDS: MORPHINE SULFATE 2 MG INJ IV PRN (14:58)
--- NOTE | 2018-07-12 16:33 | XRAY ---
Indication: Cellulitis. Possible osteomyelitis. Sagittal, coronal, and axial MRI right foot performed using T1, T2, and STIR sequences. Comparison: None Marked deformity seen of the ankle and foot presumed chronic. There is diffuse soft tissue swelling/edema of the visualized lower leg, ankle, and foot. Subcutaneous loculated fluid collection seen in the mid to hind foot anterior laterally measuring at least 10.7 x 6 x 2.5 cm concerning for abscess. Suspect additional microlobulated abscesses posterior to the ankle. 3rd-5th metatarsals and multiple tarsal bones are absent with multiple round densities presumed postoperative. Mid to proximal 2nd metatarsal demonstrates cortical thinning and T2 edema signal concerning for osteomyelitis. Lesser patchy T2 edema signal seen of the remaining tarsal bones and calcaneus. Impression: 1. Diffuse lower leg, ankle, and foot soft tissue swelling/edema favoring cellulitis. Large abscesses seen in the anterolateral foot with micro-abscesses posterior to the ankle. 2. 2nd metatarsal T2 edema signal with cortical thinning concerning for osteomyelitis. Additional T2 edema signal seen of the remaining tarsal bones and calcaneus. 3. Chronic-appearing ankle/foot deformity with postsurgical changes as detailed.
[2018-07-12] MEDS: Klor Con 10 MEQ PO SCH (22:01)
[2018-07-12] MEDS: NEURONTIN 300 MG PO PRN (22:01)
[2018-07-12 23:18] LABS: Appearance CLEAR (CLEAR); Bilirubin NEGATIVE (NEGATIVE); Blood MODERATE Ery/ul (0-5); Glucose 150 mg/dL (NEGATIVE); Ketones NEGATIVE (NEGATIVE); Leukocyte Esterase NEGATIVE (NEGATIVE); Nitrite NEGATIVE (NEGATIVE); Protein,Urine Dip 100 (Negative); RBC 26-50 /HPF (0-2); Urobilinogen NEGATIVE mg/dL (0-1)
[2018-07-12 23:20] LABS: Budding Yeast Few /HPF (NEGATIVE)
[2018-07-13] MEDS: Zosyn 2.25 GM 2.25 GM in D5w 100ML Mini Bag 100 ML 100 ML IV SCH ×5 (00:04→23:12)
[2018-07-13 06:23] LABS: Hematocrit 37.9 % (42-50); Hemoglobin 12.3 gm/dl (12.5-18.0); Mean Cell Volume 87.7 fl (78-100); Mean Corpuscular Hgb Concent. 32.5 g/dl (32-36); Mean Platelet Volume 9.4 fl (6-9.5); Platelet Count 416 K/mm3 (150-450); Red Blood Count 4.32 M/mm3 (4.1-5.6); Red Cell Distribution Width 15.2 % (11.5-14.0); White Blood Count 18.6 K/mm3 (4.0-10.5)
[2018-07-13 06:40] LABS: Mean Corpuscular Hemoglobin 28.4 pg (26-32)
[2018-07-13 06:50] LABS: BAND 4 % (0.0-2.0); Eosinophil 1 % (0.00-3.0); Lymphocytes 15 % (24-44); Monocyte 11 % (0.0-12.0); Neutrophils 69 % (36.-66.); Platelet Estimate NORMAL (NORMAL); Total Cells Counted 100
[2018-07-13] MEDS: TYLENOL EXTRA STRENGTH 500 MG PO PRN ×2 (08:47→15:03)
[2018-07-13] MEDS: Lantus Insulin SQ SCH ×2 (08:48→21:47)
[2018-07-13 08:52] LABS: ALBUMIN 2.5 g/dL (3.5-5.0); ANION GAP 12.5 MEQ/L (5-15); Calcium 8.5 mg/dL (8.4-10.2); Creatinine 1 3.61 mg/dL (0.66-1.25); Potassium 3.9 mmol/L (3.5-5.1); Total Protein 6.5 g/dL (6.3-8.2)
--- NOTE | 2018-07-13 08:59 | PCM.NOTE ---
Date and Time: 07/13/18 0854 Subjective Assessment: Dr. Willis was paged yesterday but was unable to call back. I spoke with him personally today and in my conversation, he thought it would be best for patient to have I and D here. He was willing to talk to patient and we tried to transfer his call to patient's room, but connection was not made. Patient denies constipation. He states if Dr. Willis thinks it is best to have procedure here, he is willing to talk with general surgeon. Patient is NPO at this time for kidney ultrasound. Dr. Rutherford, commercial accountant, was able to see patient yesterday evening also. Objective Exam General Appearance: no apparent distress, alert, obese, other (right foot wrapped) Neurologic Exam: alert, cooperative, normal mood/affect Skin Exam: other (+ erythema of right lower extremity.) Respiratory Exam: normal breath sounds, lungs clear, No crackles/rales, No rhonchi, No wheezing Cardiovascular Exam: regular rate/rhythm, normal heart sounds, No murmur, No friction rub, No gallop Gastrointestinal/Abdomen Exam: soft, normal bowel sounds Extremity Exam: other (swelling and marked deformity of right foot; dressing left intact this AM.) OBJECTIVE DATA Vital Signs: Vital Signs - 24 hr Temp Pulse Resp BP Pulse Ox 07/13/18 07:34 98.3 F 76 18 187/86 96 07/13/18 04:00 98.6 F 76 20 158/75 94 L 07/13/18 00:00 99.1 F 79 20 150/77 92 L 07/12/18 20:00 99.8 F 85 21 185/81 96 07/12/18 16:00 98.6 F 87 18 185/85 94 L 07/12/18 12:00 98.7 F 82 18 185/83 97 Pain Assessment - Last Documented Pain Intensity 7 Pain Scale Used 0-10 Pain Scale Intake and Output: Intake & Output 07/11/18 07/12/18 07/13/18 07/14/18 06:59 06:59 06:59 06:59 Intake Total 4472 4948 2400 0 Output Total 2100 Balance 4472 4948 300 0 Weight 152.5 kg 152.5 kg Lab Results: Accuchecks Date 07/12/18 Date 07/12/18 Time 16:30 Time 11:30 Accucheck Value: 164 Accucheck Value: 185 Accucheck Value: 135 Lab Results-Last 24 Hours 07/12/18 07/12/18 07/12/18 Range/Units 22:20 22:20 22:20 WBC (4.0-10.5) K/mm3 RBC (4.1-5.6) M/mm3 Hgb (12.5-18.0) gm/dl Hct (42-50) % MCV (78-100) fl MCH (26-32) pg MCHC (32-36) g/dl RDW (11.5-14.0) % Plt Count (150-450) K/mm3 MPV (6-9.5) fl Segmented Neutrophils (36.-66.) % Band Neutrophils (0.0-2.0) % Lymphocytes (Manual) (24-44) % Monocytes (Manual) (0.0-12.0) % Eosinophils (Manual) (0.00-3.0) % Platelet Estimate (NORMAL) RBC Morphology Magnesium (1.6-2.3) mg/dL Urine Color YELLOW (YELLOW) Urine Appearance CLEAR (CLEAR) Urine pH 6.0 (5-6) Ur Specific Rochert 1.010 (1.005-1.025) Urine Protein 100 (Negative) Urine Ketones NEGATIVE (NEGATIVE) Urine Blood MODERATE (0-5) Francisco/ul Urine Nitrite NEGATIVE (NEGATIVE) Urine Bilirubin NEGATIVE (NEGATIVE) Urine Urobilinogen NEGATIVE (0-1) mg/dL Ur Leukocyte Esterase NEGATIVE (NEGATIVE) Urine WBC (Auto) 3-5 (0-5) /HPF Urine RBC (Auto) 26-50 (0-2) /HPF U Epithel Cells (Auto) NONE (FEW) /HPF Urine Bacteria (Auto) NONE (NEGATIVE) /HPF Urine Yeast (Budding) Few (NEGATIVE) /HPF Ur Random Creatinine 38.5 MG/DL U Random Total Protein 331 H (0-12) mg/dL Urine Glucose 150 (NEGATIVE) mg/dL 07/13/18 07/13/18 Range/Units 05:50 05:50 WBC 18.6 H (4.0-10.5) K/mm3 RBC 4.32 (4.1-5.6) M/mm3 Hgb 12.3 L (12.5-18.0) gm/dl Hct 37.9 L (42-50) % MCV 87.7 (78-100) fl MCH 28.4 (26-32) pg MCHC 32.5 (32-36) g/dl RDW 15.2 H (11.5-14.0) % Plt Count 416 (150-450) K/mm3 MPV 9.4 (6-9.5) fl Segmented Neutrophils 69 H (36.-66.) % Band Neutrophils 4 H (0.0-2.0) % Lymphocytes (Manual) 15 L (24-44) % Monocytes (Manual) 11 (0.0-12.0) % Eosinophils (Manual) 1 (0.00-3.0) % Platelet Estimate NORMAL (NORMAL) RBC Morphology NORMAL Magnesium 1.8 (1.6-2.3) mg/dL Urine Color (YELLOW) Urine Appearance (CLEAR) Urine pH (5-6) Ur Specific Rochert (1.005-1.025) Urine Protein (Negative) Urine Ketones (NEGATIVE) Urine Blood (0-5) Francisco/ul Urine Nitrite (NEGATIVE) Urine Bilirubin (NEGATIVE) Urine Urobilinogen (0-1) mg/dL Ur Leukocyte Esterase (NEGATIVE) Urine WBC (Auto) (0-5) /HPF Urine RBC (Auto) (0-2) /HPF U Epithel Cells (Auto) (FEW) /HPF Urine Bacteria (Auto) (NEGATIVE) /HPF Urine Yeast (Budding) (NEGATIVE) /HPF Ur Random Creatinine MG/DL U Random Total Protein (0-12) mg/dL Urine Glucose (NEGATIVE) mg/dL Radiology Exams: Radiology Procedures Category Date Time Status ECHO W/2D AND DOPPLER [US] Routine Exams 07/13/18 08:00 Ordered KIDNEY [US] Routine Exams 07/13/18 08:00 Ordered MRI LOWER EXT W/O CONTRAST [MRI] Routine Exams 07/12/18 08:27 Completed Multi-Disciplinary Progress Notes: Multi-Disciplinary Progress Notes 07/12/18 17:42 Physical Therapy Note by Marry Walker SEE PICTURE DOCUMENTATION OF CHANGES IN RIGHT FOOT OVER THE WEEKEND IN HARD CHART. MRI + FOR ABSCESS/POSSIBLE OM THIS DATE. PLANTAR FOOT WOUND BED APPEARS TO HAVE IMPROVED GRANULATION. Initialized on 07/12/18 17:42 - END OF NOTE 07/12/18 14:10 Nutrition Note by Shanell Wilson F/u Note: 1999 ADA diet with [id number] con't with 100% po intake. Labs 07/12= Na 135, BUN 37, Cr 3.55, glu 165, hgb 12.2, hct 38.1. Adm weight 149.3 kg/current weight 152.5. kg. +fluid balance 4948 mls. Goals met and ongoing. Con't to recommend adding 2 gm Na restriction to diet order. Will con't to monitor and f /u prn. TWILMER Camacho Initialized on 07/12/18 14:10 - END OF NOTE 07/12/18 09:29 Pharmacy Note by Vladislav Hutchinson Creatinine still high at 3.55. Will back down Vancomycin to 1.25gm dose. Culture shows regular staph (s) to all except Pen G. Will repeat trough tomorrow. Initialized on 07/12/18 09:29 - END OF NOTE Assessment/Plan (1) Sepsis Current Visit: No Status: Acute Assessment & Plan: Vancomycin discontinued yesterday as MSSA. Continue zosyn but we may be able to decrease spectrum of coverage after I and D of right foot abscess. (2) Diabetic foot ulcer associated with type 2 diabetes mellitus Current Visit: No Status: Acute Assessment & Plan: Continue care by PT; plan for I and D of abscess soon. Code(s): E11.621 - TYPE 2 DIABETES MELLITUS WITH FOOT ULCER; L97.509 - NON- PRESSURE CHRONIC ULCER OTH PRT UNSP FOOT W UNSP SEVERITY (3) Type II diabetes mellitus, well controlled Current Visit: Yes Status: Acute Code(s): E11.9 - TYPE 2 DIABETES MELLITUS WITHOUT COMPLICATIONS (4) Renal failure (ARF), acute on chronic Current Visit: Yes Status: Acute Assessment & Plan: Dr. Rutherford saw patient yesterday. Check CMP this AM. Code(s): N17.9 - ACUTE KIDNEY FAILURE, UNSPECIFIED; N18.9 - CHRONIC KIDNEY DISEASE, UNSPECIFIED (5) Hypertension Current Visit: Yes Status: Acute Assessment & Plan: His blood pressure continues to run high. Will adjust his antihypertensives. Code(s): I10 - ESSENTIAL (PRIMARY) HYPERTENSION (6) Charcot foot due to diabetes mellitus Current Visit: Yes Status: Acute Code(s): E11.610 - TYPE 2 DIABETES MELLITUS W DIABETIC NEUROPATHIC ARTHROPATHY (7) Foot abscess, right Current Visit: Yes Status: Acute Assessment & Plan: He has developed an abscess in his right foot from the cellulitis. On exam yesterday, his foot looked markedly different than it had when I saw it on Thursday. His foot had been kept wrapped and dressed over the weekend when Dr. Beltrán was rounding. Code(s): L02.611 - CUTANEOUS ABSCESS OF RIGHT FOOT
[2018-07-13] MEDS ORDERED: DEMADEX 20 MG PO SCH (10:00)
[2018-07-13] MEDS: ENOXAPARIN SODIUM SQ SCH (10:18)
[2018-07-13] MEDS: Catapres 0.1 MG PO SCH ×4 (10:18→21:45)
[2018-07-13] MEDS: Tricor 145 MG PO SCH (10:18)
[2018-07-13] MEDS: Klor Con 10 MEQ PO SCH ×2 (10:18→21:46)
--- NOTE | 2018-07-13 10:21 | XRAY ---
Indication: Elevated creatinine. Two-dimensional renal sonogram performed. Comparison: May 10, 2015. Again sonogram technically difficult due to body habitus. Both kidneys normal in reniform shape with normal color perfusion. Right kidney measures 12.3 x 7.0 x 6.6 cm and the left measures 14.3 x 6.3 x 5.4 cm. New 2.1 cm left upper pole cortical cyst. No solid renal mass, hydronephrosis, or perinephric fluid. Corticomedullary differentiation preserved without cortical thinning. Images of the minimally distended urinary bladder grossly unremarkable. Ureteral jets not seen within the allotted exam time. Impression: New left renal cyst. Remaining renal sonogram is negative.
--- NOTE | 2018-07-13 10:25 | CONS ---
CONSULT DATE: 07/12/2018 REASON FOR CONSULT: Evaluation of increase in BUN and creatinine. HISTORY: Colin Armendariz is a very pleasant 48 year-old gentleman. He presented to the emergency department with fever and chills. He had elevated white count. The patient had sore on his right foot for the past two weeks. He was being treated with topical antibiotics. He did not have any type central line, PICC line, hardware. He does have history of prior osteomyelitis with Staphylococcus aureus. The patient had blood cultures done which showed Staphylococcus aureus. The patient was started on Zosyn and Vancomycin. During the course of hospitalization the patient was noted to have a creatinine which was initially noted to be around 2.55 mg%. Eventually started to deteriorate and it went up to 3.6 mg%. As a result renal consultation was called. The patient denies any nausea, vomiting or diarrhea. He was not hypotensive. He was not on any nonsteroidals. He did not have any dye exposure. His baseline creatinine is not entirely clear but he states that he has been told about kidney disease in the past but is unaware of his baseline glomerular filtration rate or creatinine. He states he had seen a print production associate about a year ago in [place]. Otherwise appetite has been fair. He is drinking well. He is afebrile at this time. He denies any voiding issues. Leg swelling is present but it is not any more than usual. He denies any known history of heart failure. REVIEW OF SYSTEMS: Basically positive for right foot sore, fever at the time of admission, pain. He had some cough at admission which is better. No nausea, vomiting or diarrhea. No bleeding from any of the orifices. No voiding issues. No focal weaknesses. No headache. No blurry vision. All systems were reviewed in detail and pertinent mentioned here and in history of present illness and the rest were negative. No dysuria. PAST MEDICAL HISTORY: Hypertension. Chronic kidney disease not otherwise specified. Diabetes mellitus type 2. Charcot foot and possible neuropathy. History of prior osteomyelitis with Staph. PAST SURGICAL HISTORY: Fifth digit of his left foot removed. He also had surgery on his right foot for infection. MEDICATIONS: Inpatient medications were reviewed. Outpatient medications were reviewed. The patient was on Fenofibrate, clonidine, Norvasc, Tylenol, calcium, Vancomycin, Unasyn. Inpatient medications were reviewed details of those were noted. ALLERGIES: NKDA. SOCIAL HISTORY: No history of smoking, alcohol or illicit drug abuse. Lives with mother and father. He works at a place called [employer] at [employer]. FAMILY HISTORY: Denies any history of renal problems in the family. PHYSICAL EXAMINATION: Reveals a gentleman who is upright in bed in no major respiratory distress. Blood pressure was noted to be 139/66, pulse rate was 90/minute, respiratory rate 20/minute, temperature 98.8F. HEENT: Normocephalic, atraumatic, pink conjunctivae, nonicteric sclera. NECK: Supple. No JVD CHEST: Clear to auscultation. No distress. CVS: S1, S2 normal. No rub or gallop. ABDOMEN: Soft, globular, nontender. EXTREMITIES: No cyanosis or clubbing. +1 edema bilaterally. There was deformity on the lateral aspect of right foot. There was 3 x 3 cm ulcer draining serosanguinous fluid. No tenderness at this time. SKIN: No diffuse rash seen. Skin turgor is normal. Skin over the lower extremities shows venous stasis changes. MUSCULOSKELETAL: No acute joint swelling or redness noted. NEUROLOGIC: Alert, awake, oriented x3. LAB DATA AND TESTS: Labs were reviewed. Pertinent labs today hemoglobin 12.2, white count 16.8. Creatinine 3.55, sodium 135, potassium 3.8. All of the tests were reviewed. ASSESSMENT: 1) ACUTE KIDNEY INJURY AND CHRONIC KIDNEY DISEASE NOT OTHERWISE SPECIFIED: Etiology of acute kidney injury could be on two accounts. The patient could have Vancomycin-related nephrotoxicity. Vancomycin-related nephrotoxicity can be accumulated and/or idiosyncratic. At this time Staphylococcus aureus seems to be sensitive to penicillin. We have discussed with Dr. Hyatt to discontinue Vancomycin. The second possibility could post-infectious limb. I would do baseline urine studies which include UA, urine protein quantification, also for postinfectious glomerulonephritis. We will do C3, C4, ENOCH. Also infection can cause precipitation of ANCA vasculitis will check ANCA levels. At this time the patient is nonoliguric. Potassium levels were okay. Bicarb levels were fine. No urgent need for renal replacement therapy, continue to monitor closely. The possibilities in future were discussed with the patient. At that time he may need transfer to [place]. 2) HYPERTENSION: Fair. Off and on uncontrolled blood pressure. We will discontinue Norvasc given tendency for leg swelling which may further impede his healing process. The patient is on clonidine once a day. We will change clonidine to 0.1 t.i.d. Further titration will then depend on blood pressure trend and acute scenario. Order the patient for ARB. 3) FLUID RETENTION AND EDEMA: Could be due because of aggressive fluid repletion. The patient is also has avid fluid intake. We will discontinue IV fluids, start him on Torsemide which is a long-acting loop diuretic without lesser peaks and troughs, this should help with blood pressure, fluid overload and help with the healing process. 4) LEUKOCYTOSIS: Still having low grade fever on antibiotics. I would recommend 2D echo to make sure there is no infective endocarditis. A 2D echo will be ordered. 5) DIABETES MELLITUS TYPE 2: Monitor of blood glucose control was discussed. We will quantify proteinuria. Once renal function is stable will consider MATHEW or ARB. Advise to closely follow the patient. The rest of the electrolytes, labs, medicines were reviewed and discussed with Dr. Hyatt and the patient at bedside.
[2018-07-13] MEDS ORDERED: TROUGH DRUG LEVELS IJ ONE (11:30)
[2018-07-13] MEDS ORDERED: Lactated Ringers 1,000 ML IV SCH (13:00)
[2018-07-13] MEDS ORDERED: SUBLIMAZE 100 MCG/2 ML IV ONE (13:26)
--- NOTE | 2018-07-13 14:43 | CONS ---
CONSULT DATE: 07/13/2018 HISTORY: A 48 year-old diabetic patient of Dr. Hyatt and Dr. Willis. Dr. Willis has done surgeries for Charcot joint. He had chronic changes, had some fever. He was admitted for IV antibiotics. He has been here for some time. He had a MRI that apparently had some question of abscess. They tried to get a hold of Dr. Willis who was tied up. He asked that we be consulted for possible drainage and that he would take over longer term care for the patient. PAST MEDICAL HISTORY: Obesity. Hypertension. Diabetes mellitus type 2. Charcot foot. He has a history of osteomyelitis. History of methicillin resistant staphylococcus aureus in the past. PAST SURGICAL HISTORY: Surgery on his foot by Dr. Willis left foot in the past as well as the right foot he had a Charcot joint. MEDICATIONS: It looks like he has been on some Lovenox, clonidine, insulin, potassium chloride, Torsemide, Zosyn here. His home medications as listed in the chart prior to that. ALLERGIES: NKDA. FAMILY HISTORY: Diabetes. SOCIAL HISTORY: No smoking or alcohol abuse. LAB DATA AND TESTS: White count 18,600. They said he has been in the hospital since last . The white count was 16,000 previously. Hemoglobin A1C of 6.9 on admission. REVIEW OF SYSTEMS: Twelve systems reviewed. Pertinent for as noted above per admission assessment and history and physical. No chest pain or palpitations. Other systems negative or noncontributory as above and per preadmission questionnaire. PHYSICAL EXAMINATION: GENERAL: No acute distress. HEENT: Sclera nonicteric. NECK: No JVD. CHEST: Equal excursion, nonlabored breathing. CVS: Regular rhythm and pulse. ABDOMEN: Soft, nondistended. EXTREMITIES: Deformity. There is a diabetic ulcer down more towards the heel that is clean and some mild tenderness on his foot. He has some changes anterior foot as well with Charcot appearing foot. Otherwise no cyanosis currently. NEURO: Alert, moving extremities symmetrically. IMPRESSION: Diabetic foot infection. MRI suggests question of abscess. Dr. Willis was unavailable at this moment and asked that I be consulted to do some possible drainage. Dr. Willis would resume longer term care with the patient. The patient understands general risk of bleeding or infection, risk of ongoing infection or sepsis. Ultimate overall risk of losing the foot or lower leg. General risk of anesthesia, deep venous thrombosis, pulmonary embolism, pneumonia but not limited to. He understands if he fails to improve may need to be transferred to Dr. Willis to be addressed in surgical fashion. He understands and agrees to the plan, will proceed with drainage, possible debridement in the OR when OR time available.
--- NOTE | 2018-07-13 15:01 | OP ---
SURGERY DATE/TIME: 07/13/2018 1340 PREOPERATIVE DIAGNOSIS: Right diabetic foot infection, history of surgery by Dr. Willis in the past, in need of drainage until Dr. 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 POSTOPERATIVE DIAGNOSIS: Right diabetic foot infection, history of surgery by Dr. Willis in the past, in need of drainage until Dr. 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 PROCEDURE: Drainage and debridement of a small amount of skin and subcutaneous fat right foot with irrigation, culture and packing. SURGEON: Dr. Wilson Arora. ANESTHESIA: General. ESTIMATED BLOOD LOSS: Minimal. INDICATIONS: As noted above. Risks and benefits explained in detail and not limited to and consent obtained. DESCRIPTION OF PROCEDURE AND FINDINGS: The patient is taken to the operating room. Site had been confirmed. General anesthesia induced. After official time out and no disagreement with planned procedure, foot was prepped and draped in usual sterile fashion. Initially the patient was concerned a little bit more of anterior area. There was a slight fluctuant area here this was carefully incised anteriorly. There was only minimal purulence here. There is a much more fluctuant area on the lateral part of the foot. There were two areas that were extremely fluctuant. It was felt that these should be opened up. A nickel-sized area of skin was carefully excised along with some devitalized underlying subcutaneous fat opening up and draining some area of thin purulence. This was then repeated more posteriorly on the lateral aspect of the foot on the other extremely fluctuant site this resulted in slightly small portion of skin with some devitalized subcutaneous fat about quarter-sized area. Once this was accomplished it was felt that this was drained as well as could be accomplished. Culture had been taken of the fluid. Copious amount of irrigation irrigating clear as possible. The patient had a very good blood supply and had brisk ooze from the surrounding viable skin and subcu. There were no vessel to ligate. Some pin point cautery was done and a small piece of Surgicel was placed on top of the skin. Adequate hemostasis. Otherwise the wounds were packed with normal saline wet to dry after copious amount of irrigation had been accomplished irrigating as clear as possible. Sterile dressing applied per OR staff. The patient was transferred to the recovery room in stable condition. There were no immediate complications. He has a difficult supervisor [employer] diabetic foot followed by Dr. Willis, Representative Government Relations. 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 He is ultimate risk of requiring amputation but he has quite a bit of blood supply at this point. Continue IV antibiotics until Dr. Willis can see him for further care for his wound. Local wound care until then.
--- NOTE | 2018-07-13 15:21 | ECHO ---
DATE OF PROCEDURE: 07/13/2018 CLINICAL INFORMATION: Possible infective endocarditis. The M-mode 2D, and Doppler echocardiogram were technically difficult due to the body habitus. There is normal contractility of the left ventricle. The left ventricle is mildly dilated with a dimension of 6.0 cm. The septal wall thickness is increased at 1.7 cm. The left ventricular posterior wall thickness is increased at 1.4 cm. There is accentuated contractility of the left ventricle with an ejection fraction of 70%. The right ventricle is grossly normal. There is no apical thrombus noted in the left ventricle. The left atrium is borderline dilated at 4.0 cm. The interatrial septum is intact. The right atrium is normal. The aortic valve is not well visualized. The mitral valve is grossly normal. There is mild tricuspid regurgitation. The pulmonic valve is not well visualized. The aortic root is normal at 3.1 cm. There is no pericardial effusion present. IMPRESSION: 1) A TECHNICALLY DIFFICULT ECHOCARDIOGRAM. 2) NO DEFINITE VEGETATION WAS NOTED. 3) ACCENTUATED CONTRACTILITY OF THE LEFT VENTRICLE. 4) MILD LEFT VENTRICLE DILATATION. 5) MILD TO MODERATE CONCENTRIC LEFT VENTRICULAR HYPERTROPHY. 6) MILD TRICUSPID REGURGITATION.
[2018-07-13] MEDS ORDERED: MORPHINE SULFATE 2 MG INJ IV PRN (15:30)
[2018-07-13] MEDS ORDERED: Zofran 4 MG/2 ML VIAL IV ONE (15:32)
[2018-07-13] MEDS ORDERED: DIPRIVAN 200 MG/20 ML IV ONE (15:32)
[2018-07-13] MEDS ORDERED: TORAdol 30 mg Injection IV ONE (15:32)
[2018-07-13] MEDS: NovoLOG Insulin SQ PRN (21:46)
[2018-07-13] MEDS: NEURONTIN 300 MG PO PRN (21:46)
[2018-07-13] MEDS: DEMADEX 20 MG PO SCH (21:46)
[2018-07-14 05:54] LABS: Granulocyte Absolute (ANC) 11.02 (1.4-6.9); Hematocrit 36.7 % (42-50); Hemoglobin 11.7 gm/dl (12.5-18.0); Mean Cell Volume 88.6 fl (78-100); Mean Corpuscular Hgb Concent. 31.9 g/dl (32-36); Mean Platelet Volume 9.3 fl (6-9.5); Platelet Count 429 K/mm3 (150-450); Red Blood Count 4.14 M/mm3 (4.1-5.6); Red Cell Distribution Width 15.6 % (11.5-14.0); White Blood Count 14.4 K/mm3 (4.0-10.5)
[2018-07-14] MEDS: Zosyn 2.25 GM 2.25 GM in D5w 100ML Mini Bag 100 ML 100 ML IV SCH ×4 (05:55→23:31)
[2018-07-14 05:59] LABS: Mean Corpuscular Hemoglobin 28.2 pg (26-32)
[2018-07-14 06:17] LABS: ALBUMIN 2.5 g/dL (3.5-5.0); ANION GAP 13.3 MEQ/L (5-15); BILIRUBIN,TOTAL 0.7 mg/dL (0.2-1.3); Creatinine 1 3.57 mg/dL (0.66-1.25); Total Protein 6.4 g/dL (6.3-8.2)
[2018-07-14] MEDS: ULTRAM 50 MG PO PRN ×2 (06:19→22:13)
[2018-07-14] MEDS: Lantus Insulin SQ SCH ×2 (08:12→21:48)
[2018-07-14 08:22] LABS: COMPLEMENT C3 206 mg/dL (88-201); COMPLEMENT C4 36 mg/dL (10-40)
--- NOTE | 2018-07-14 08:51 | PCM.NOTE ---
Date and Time: 07/14/18 0847 Subjective Assessment: Patient had I and D of right foot yesterday afternoon with Dr. Espinosa. Patient denies pain. He states his appetite has been good and no constipation. He states he hasn't needed the morphine for pain and has mostly just been taking tylenol. He reports one of the nephrologists came by again yesterday to see him. Objective Exam General Appearance: no apparent distress, alert, obese, other (sitting up eating his breakfast; right foot wrapped.) Neurologic Exam: alert, cooperative, normal mood/affect Skin Exam: normal color, warm, other (mild erythema of right leg above bandage) Respiratory Exam: normal breath sounds, lungs clear, No crackles/rales, No rhonchi, No wheezing Cardiovascular Exam: regular rate/rhythm, normal heart sounds, No murmur, No friction rub, No gallop Extremity Exam: other (+2 edema to knees bilat) OBJECTIVE DATA Vital Signs: Vital Signs - 24 hr Temp Pulse Resp BP Pulse Ox 07/14/18 08:00 98.4 F 71 18 129/77 97 07/14/18 04:00 97.6 F 65 20 158/76 95 07/14/18 00:03 97.5 F 62 18 124/63 95 07/13/18 22:00 97.8 F 64 18 135/68 96 07/13/18 18:00 97.8 F 64 18 135/68 96 07/13/18 14:55 97.9 F 68 18 173/80 93 L 07/13/18 12:57 97.6 F 67 18 139/81 95 07/13/18 11:52 97.6 F 67 18 139/81 95 Pain Assessment - Last Documented Pain Intensity 3 Pain Scale Used FLACC Intake and Output: Intake & Output 07/12/18 07/13/18 07/14/18 07/15/18 06:59 06:59 06:59 06:59 Intake Total 4948 2400 1060 Output Total 2100 1950 550 Balance 4948 300 -890 -550 Weight 152.5 kg 152.6 kg 152.2 kg Lab Results: Accuchecks Date 07/13/18 Time 21:00 Accucheck Value: 227 Accucheck Value: 103 Accucheck Value: 118 Lab Results-Last 24 Hours 07/12/18 07/13/18 07/14/18 Range/Units 22:20 05:00 05:31 WBC 14.4 H (4.0-10.5) K/mm3 RBC 4.14 (4.1-5.6) M/mm3 Hgb 11.7 L (12.5-18.0) gm/dl Hct 36.7 L (42-50) % MCV 88.6 (78-100) fl MCH 28.2 (26-32) pg MCHC 31.9 L (32-36) g/dl RDW 15.6 H (11.5-14.0) % Plt Count 429 (150-450) K/mm3 MPV 9.3 (6-9.5) fl Absolute Granulocytes 11.02 H (1.4-6.9) Samuels Stain for PMNs 1-10/hpf H (No Pmn) Sodium 139 (137-145) mmol/L Potassium 3.9 (3.5-5.1) mmol/L Chloride 109 H (98-107) mmol/L Carbon Dioxide 22 (22-30) mmol/L Anion Gap 12.5 (5-15) MEQ/L BUN 36 H (9-20) mg/dL Creatinine 3.61 H (0.66-1.25) mg/dL Estimated GFR 19.3 ML/MIN Glucose 94 (74-106) mg/dL Calcium 8.5 (8.4-10.2) mg/dL Total Bilirubin 1.00 (0.2-1.3) mg/dL AST 36 (17-59) U/L ALT 27 (0-50) U/L Alkaline Phosphatase 195 H (38-126) U/L Serum Total Protein 6.5 (6.3-8.2) g/dL Albumin 2.5 L (3.5-5.0) g/dL Ur Eosinophil Smear See Note Eosinophil Smear <1/hpf H (No Eos) 07/14/18 Range/Units 05:31 WBC (4.0-10.5) K/mm3 RBC (4.1-5.6) M/mm3 Hgb (12.5-18.0) gm/dl Hct (42-50) % MCV (78-100) fl MCH (26-32) pg MCHC (32-36) g/dl RDW (11.5-14.0) % Plt Count (150-450) K/mm3 MPV (6-9.5) fl Absolute Granulocytes (1.4-6.9) Samuels Stain for PMNs (No Pmn) Sodium 138 (137-145) mmol/L Potassium 4.0 (3.5-5.1) mmol/L Chloride 108 H (98-107) mmol/L Carbon Dioxide 20 L (22-30) mmol/L Anion Gap 13.3 (5-15) MEQ/L BUN 39 H (9-20) mg/dL Creatinine 3.57 H (0.66-1.25) mg/dL Estimated GFR 19.5 ML/MIN Glucose 116 H (74-106) mg/dL Calcium 8.0 L (8.4-10.2) mg/dL Total Bilirubin 0.70 (0.2-1.3) mg/dL AST 20 (17-59) U/L ALT 22 (0-50) U/L Alkaline Phosphatase 181 H (38-126) U/L Serum Total Protein 6.4 (6.3-8.2) g/dL Albumin 2.5 L (3.5-5.0) g/dL Ur Eosinophil Smear Eosinophil Smear (No Eos) Radiology Exams: Radiology Procedures Category Date Time Status ECHO W/2D AND DOPPLER [US] Routine Exams 07/13/18 08:00 Draft KIDNEY [US] Routine Exams 07/13/18 08:00 Completed MRI LOWER EXT W/O CONTRAST [MRI] Routine Exams 07/12/18 08:27 Completed Assessment/Plan (1) Sepsis Current Visit: No Status: Acute Assessment & Plan: Improving; vital signs stable; WBC better this AM; abscess incised and drained yesterday. continue Zosyn. (2) Diabetic foot ulcer associated with type 2 diabetes mellitus Current Visit: No Status: Acute Assessment & Plan: Continue PT for wound care of foot; surgeon's op report has not been transcribed yet. I appreciate his help with this patient. Code(s): E11.621 - TYPE 2 DIABETES MELLITUS WITH FOOT ULCER; L97.509 - NON- PRESSURE CHRONIC ULCER OTH PRT UNSP FOOT W UNSP SEVERITY (3) Type II diabetes mellitus, well controlled Current Visit: Yes Status: Acute Assessment & Plan: Continue current medications. Code(s): E11.9 - TYPE 2 DIABETES MELLITUS WITHOUT COMPLICATIONS (4) Renal failure (ARF), acute on chronic Current Visit: Yes Status: Acute Code(s): N17.9 - ACUTE KIDNEY FAILURE, UNSPECIFIED; N18.9 - CHRONIC KIDNEY DISEASE, UNSPECIFIED (5) Hypertension Current Visit: Yes Status: Acute Assessment & Plan: Fairly well controlled. Continue current medication. Code(s): I10 - ESSENTIAL (PRIMARY) HYPERTENSION (6) Charcot foot due to diabetes mellitus Current Visit: Yes Status: Acute Code(s): E11.610 - TYPE 2 DIABETES MELLITUS W DIABETIC NEUROPATHIC ARTHROPATHY (7) Foot abscess, right Current Visit: Yes Status: Acute Assessment & Plan: s/p drainage on 07/13/18. Continue zosyn. Code(s): L02.611 - CUTANEOUS ABSCESS OF RIGHT FOOT
[2018-07-14] MEDS: Tricor 145 MG PO SCH (09:29)
[2018-07-14] MEDS: Klor Con 10 MEQ PO SCH ×2 (09:29→21:48)
[2018-07-14] MEDS: DEMADEX 20 MG PO SCH ×2 (09:29→21:48)
[2018-07-14] MEDS: Catapres 0.1 MG PO SCH ×3 (09:29→21:47)
[2018-07-14] MEDS: ENOXAPARIN SODIUM SQ SCH (09:30)
[2018-07-14 10:07] LABS: BAND 1 % (0.0-2.0); Eosinophil 5 % (0.00-3.0); Lymphocytes 18 % (24-44); Monocyte 3 % (0.0-12.0); Neutrophils 73 % (36.-66.); Platelet Estimate NORMAL (NORMAL); Total Cells Counted 100; Toxic Granulation 2+
[2018-07-14 13:22] LABS: cANCA IgG Titer Not Indicated (Not Indicated); pANCA IgG Titer Not Indicated (Not Indicated)
[2018-07-14 13:57] LABS: ANA Pattern Interp Detail See Result Note:
[2018-07-14] MEDS: NovoLOG Insulin SQ PRN (18:17)
[2018-07-14] MEDS: NEURONTIN 300 MG PO PRN (21:47)
[2018-07-15] MEDS: Zosyn 2.25 GM 2.25 GM in D5w 100ML Mini Bag 100 ML 100 ML IV SCH (05:51)
[2018-07-15 06:09] LABS: Hematocrit 34.3 % (42-50); Hemoglobin 10.9 gm/dl (12.5-18.0); Mean Cell Volume 88.6 fl (78-100); Mean Corpuscular Hgb Concent. 31.8 g/dl (32-36); Platelet Count 525 K/mm3 (150-450); Red Blood Count 3.87 M/mm3 (4.1-5.6); Red Cell Distribution Width 15.3 % (11.5-14.0); White Blood Count 14.9 K/mm3 (4.0-10.5)
[2018-07-15 06:15] LABS: Mean Corpuscular Hemoglobin 28.1 pg (26-32)
[2018-07-15 06:26] LABS: ALBUMIN 2.4 g/dL (3.5-5.0); ANION GAP 14.3 MEQ/L (5-15); BILIRUBIN,TOTAL 0.6 mg/dL (0.2-1.3); Calcium 7.8 mg/dL (8.4-10.2); Creatinine 1 4.08 mg/dL (0.66-1.25); Potassium 4.2 mmol/L (3.5-5.1); Total Protein 6.3 g/dL (6.3-8.2)
[2018-07-15 08:15] LABS: BAND 3 % (0.0-2.0); Eosinophil 3 % (0.00-3.0); Lymphocytes 14 % (24-44); Monocyte 5 % (0.0-12.0); Neutrophils 75 % (36.-66.); Total Cells Counted 100
[2018-07-15 08:16] LABS: ANISOCYTOSIS 1+; Platelet Estimate INCREASED (NORMAL); Toxic Granulation 1+
[2018-07-15] MEDS: Lantus Insulin SQ SCH ×2 (08:28→22:21)
--- NOTE | 2018-07-15 10:12 | PCM.NOTE ---
Date and Time: 07/15/18 1007 Subjective Assessment: Patient reports that he feels better and does not have much pain in his foot besides the normal pain he has from his Charcot. He reports he would like to go home. His appetite has been good; no constipation; no abdominal pain. He has been using a walker to get around but does not have one at home. He plans to follow up with Dr. Willis terminal superintendent. PT is in the room but waiting to undress his foot until the surgeon is available to look at it and she states she will take pictures for me. Objective Exam General Appearance: no apparent distress, alert, obese Neurologic Exam: alert, cooperative, normal mood/affect Skin Exam: normal color, warm, dry, other (right foot wrapped and dressed; +2 edema in left lower extremity and +3 edema in right lower extremity, no c/c) Cardiovascular Exam: regular rate/rhythm, normal heart sounds, No murmur, No gallop Gastrointestinal/Abdomen Exam: soft, normal bowel sounds, No tenderness, No distention, No mass OBJECTIVE DATA Vital Signs: Vital Signs - 24 hr Temp Pulse Resp BP Pulse Ox 07/15/18 07:21 98.9 F 75 20 137/68 93 L 07/15/18 04:00 100.0 F 73 18 143/69 94 L 07/15/18 00:00 99.5 F 82 20 156/74 97 07/14/18 20:00 98.8 F 73 19 157/73 94 L 07/14/18 16:00 98.1 F 68 18 174/80 95 07/14/18 12:00 98.3 F 68 18 151/68 95 Pain Assessment - Last Documented Pain Intensity 0 Pain Scale Used 0-10 Pain Scale,FLACC Intake and Output: Intake & Output 07/13/18 07/14/18 07/15/18 07/16/18 06:59 06:59 06:59 06:59 Intake Total 2400 1060 4478 240 Output Total 2100 1950 1450 Balance 300 -890 3028 240 Weight 152.6 kg 152.2 kg 151.8 kg Lab Results: Accuchecks Date 07/14/18 Date 07/14/18 Date 07/14/18 Time 22:00 Time 16:30 Time 11:30 Accucheck Value: 192 Accucheck Value: 219 Accucheck Value: 141 Lab Results-Last 24 Hours 07/12/18 07/14/18 07/15/18 Range/Units 05:50 05:31 05:43 WBC 14.9 H (4.0-10.5) K/mm3 RBC 3.87 L (4.1-5.6) M/mm3 Hgb 10.9 L (12.5-18.0) gm/dl Hct 34.3 L (42-50) % MCV 88.6 (78-100) fl MCH 28.1 (26-32) pg MCHC 31.8 L (32-36) g/dl RDW 15.3 H (11.5-14.0) % Plt Count 525 H (150-450) K/mm3 MPV 9.0 (6-9.5) fl Segmented Neutrophils 73 H 75 H (36.-66.) % Band Neutrophils 1 3 H (0.0-2.0) % Lymphocytes (Manual) 18 L 14 L (24-44) % Monocytes (Manual) 3 5 (0.0-12.0) % Eosinophils (Manual) 5 H 3 (0.00-3.0) % Toxic Granulation 2+ 1+ Platelet Estimate NORMAL INCREASED (NORMAL) RBC Morphology NORMAL ABNORMAL Anisocytosis 1+ Sodium (137-145) mmol/L Potassium (3.5-5.1) mmol/L Chloride (98-107) mmol/L Carbon Dioxide (22-30) mmol/L Anion Gap (5-15) MEQ/L BUN (9-20) mg/dL Creatinine (0.66-1.25) mg/dL Estimated GFR ML/MIN Glucose (74-106) mg/dL Calcium (8.4-10.2) mg/dL Total Bilirubin (0.2-1.3) mg/dL AST (17-59) U/L ALT (0-50) U/L Alkaline Phosphatase (38-126) U/L Serum Total Protein (6.3-8.2) g/dL Total Protein (PEP) Pending Albumin Pending Bmjgk-5-Vczddfqgs Pending Whaoj-2-Fpottieos Pending Eeni-4-Ybwwmevf Pending Gamma Globulins Pending M-Carson Beta Pending PEP Interpretation Pending ENOCH IgG Screen Neg. at 1:80 (Neg. at 1:80) ENOCH IgG Titer Not Indicated (Not Indicated) ENOCH Pattern Not Ind ENOCH Interpretation See Result Note: ANCA Screen Neg. at 1:20 (Neg. at 1:20) ANCA Titer Not Indicated (Not Indicated) c-ANCA Titer Not Indicated (Not Indicated) c-ANCA Neg. at 1:20 (Neg. at 1:20) p-ANCA Titer Not Indicated (Not Indicated) p-ANCA Neg. at 1:20 (Neg. at 1:20) Glomerular Base Mem IgA Pending Complement C3 206 H (88-201) mg/dL Complement C4 36 (10-40) mg/dL 07/15/18 Range/Units 05:43 WBC (4.0-10.5) K/mm3 RBC (4.1-5.6) M/mm3 Hgb (12.5-18.0) gm/dl Hct (42-50) % MCV (78-100) fl MCH (26-32) pg MCHC (32-36) g/dl RDW (11.5-14.0) % Plt Count (150-450) K/mm3 MPV (6-9.5) fl Segmented Neutrophils (36.-66.) % Band Neutrophils (0.0-2.0) % Lymphocytes (Manual) (24-44) % Monocytes (Manual) (0.0-12.0) % Eosinophils (Manual) (0.00-3.0) % Toxic Granulation Platelet Estimate (NORMAL) RBC Morphology Anisocytosis Sodium 135 L (137-145) mmol/L Potassium 4.2 (3.5-5.1) mmol/L Chloride 106 (98-107) mmol/L Carbon Dioxide 19 L (22-30) mmol/L Anion Gap 14.3 (5-15) MEQ/L BUN 38 H (9-20) mg/dL Creatinine 4.08 H (0.66-1.25) mg/dL Estimated GFR 16.7 ML/MIN Glucose 143 H (74-106) mg/dL Calcium 7.8 L (8.4-10.2) mg/dL Total Bilirubin 0.60 (0.2-1.3) mg/dL AST 19 (17-59) U/L ALT 19 (0-50) U/L Alkaline Phosphatase 159 H (38-126) U/L Serum Total Protein 6.3 (6.3-8.2) g/dL Total Protein (PEP) Albumin 2.4 L Vfbmy-1-Wburwqszw Hbbuk-8-Lvnucwgcj Gcqh-9-Btywciul Gamma Globulins M-Carson Beta PEP Interpretation ENOCH IgG Screen (Neg. at 1:80) ENOCH IgG Titer (Not Indicated) ENOCH Pattern ENOCH Interpretation ANCA Screen (Neg. at 1:20) ANCA Titer (Not Indicated) c-ANCA Titer (Not Indicated) c-ANCA (Neg. at 1:20) p-ANCA Titer (Not Indicated) p-ANCA (Neg. at 1:20) Glomerular Base Mem IgA Complement C3 (88-201) mg/dL Complement C4 (10-40) mg/dL Assessment/Plan (1) Acute osteomyelitis of metatarsal bone of right foot Current Visit: Yes Status: Acute Assessment & Plan: MRI on 07/12/18 was concerning for osteomyelitis of the 2nd metatarsal. He started IV antibiotics on 07/07/18. He also continues to have an elevated WBC count. He will need a 6 week course of antibiotics. Will order a PICC line to be placed today; patient told mission planner he could give himself the IV antibiotics at home and has done this before. I have updated Dr. Willis today as he will need to follow up closely with him as well as his Primary care provider. Patient declines need for Home Health. If he does not improve clinically, he may need further surgical intervention with Dr. Willis. Code(s): M86.171 - OTHER ACUTE OSTEOMYELITIS, RIGHT ANKLE AND FOOT (2) Sepsis Current Visit: No Status: Acute Qualifiers: Sepsis type: methicillin susceptible Staphylococcus aureus Qualified Code(s ): A41.01 - Sepsis due to Methicillin susceptible Staphylococcus aureus Assessment & Plan: Resolved with IV antibiotics; day 8. Afebrile; blood pressure stable; no tachycardia. Echo normal; source most likely diabetic foot abscess/ulcer. (3) Diabetic foot ulcer associated with type 2 diabetes mellitus Current Visit: No Status: Acute Assessment & Plan: He will follow up with Dr. Willis. Code(s): E11.621 - TYPE 2 DIABETES MELLITUS WITH FOOT ULCER; L97.509 - NON- PRESSURE CHRONIC ULCER OTH PRT UNSP FOOT W UNSP SEVERITY (4) Type II diabetes mellitus, well controlled Current Visit: Yes Status: Acute Assessment & Plan: Continue current doses of insulin. Code(s): E11.9 - TYPE 2 DIABETES MELLITUS WITHOUT COMPLICATIONS (5) Renal failure (ARF), acute on chronic Current Visit: Yes Status: Acute Assessment & Plan: Nephrologists have been following. Will ask staff to update them on his creatinine. Code(s): N17.9 - ACUTE KIDNEY FAILURE, UNSPECIFIED; N18.9 - CHRONIC KIDNEY DISEASE, UNSPECIFIED (6) Hypertension Current Visit: Yes Status: Acute Assessment & Plan: Better controlled with adjustments from liquid flavor compounder. Code(s): I10 - ESSENTIAL (PRIMARY) HYPERTENSION (7) Charcot foot due to diabetes mellitus Current Visit: Yes Status: Acute Code(s): E11.610 - TYPE 2 DIABETES MELLITUS W DIABETIC NEUROPATHIC ARTHROPATHY (8) Foot abscess, right Current Visit: Yes Status: Acute Assessment & Plan: s/p I and D on 07/13/18. Code(s): L02.611 - CUTANEOUS ABSCESS OF RIGHT FOOT
[2018-07-15] MEDS: ENOXAPARIN SODIUM SQ SCH (10:15)
[2018-07-15] MEDS: DEMADEX 20 MG PO SCH ×2 (10:15→22:21)
[2018-07-15] MEDS: Tricor 145 MG PO SCH (10:15)
[2018-07-15] MEDS: Klor Con 10 MEQ PO SCH ×2 (10:15→22:21)
[2018-07-15] MEDS: Catapres 0.1 MG PO SCH ×3 (10:16→22:21)
[2018-07-15 11:31] LABS: INR 1.73 (0.8-3.0); PROTIME 20.2 SECONDS (8.83-12.87)
[2018-07-15 11:34] LABS: PTT 29.7 SECONDS (24.1-36.1)
[2018-07-15] MEDS: KEFZOL 1 GM/50 ML PREMIX** 1 GM/50 ML IVPB IV SCH ×2 (11:44→22:22)
--- NOTE | 2018-07-15 13:27 | XRAY ---
Indication: Long-term IV access and therapy for right foot infection. Informed consent obtained. Patient was placed on the fluoroscopic table in a supine position. Initial sonographic imaging of the right upper extremity was performed for localization of patent veins. The right upper extremity was then prepped and draped in sterile fashion. Tourniquet applied. 1% lidocaine plain used for local anesthesia. Using ultrasound guidance and a micropuncture needle, a basilic vein above the elbow was successfully percutaneously cannulized. A floppy tip 0.018 guidewire inserted. Tourniquet released. Needle was exchanged for a 5 Estonian dilator peel-away sheath catheter. Ultimately a 5 Estonian double-lumen PICC line was inserted over a longer 0.018 guidewire with the tip positioned in the distal SVC using fluoroscopic guidance. Guidewire removed. Both ports flushed with heparinized saline. Catheter was secured. Postoperative instructions and orders given. Patient discharged in good condition. Impression: Technically successful right upper extremity PICC line placement using ultrasound and fluoroscopic guidance. No immediate complications. Approximately 2 cc blood loss. Approximately 0.3 minute of fluoroscopy used. Catheter length is 50 cm.
--- NOTE | 2018-07-15 13:30 | XRAY ---
Indication: Ultrasound guidance for PICC line placement. Initial sonographic imaging of the right upper extremity was performed for localization of patent veins. A patent basilic vein identified above the elbow. Ultrasound guidance was then used for PICC line insertion. Full PICC line insertion is reported separately.
[2018-07-15 15:36] LABS: ANTIGLOMERULAR BASEMENT MEMBR Negative (Negative)
[2018-07-15] MEDS ORDERED: Sodium Chloride 0.9% 10 ML FLUSH Syringe IV PRN (17:00)
[2018-07-15] MEDS: NovoLOG Insulin SQ PRN (22:22)
[2018-07-16 05:36] LABS: Hematocrit 35.6 % (42-50); Hemoglobin 11.4 gm/dl (12.5-18.0); Mean Cell Volume 88.1 fl (78-100); Mean Corpuscular Hemoglobin 28.2 pg (26-32); Mean Platelet Volume 8.7 fl (6-9.5); Platelet Count 567 K/mm3 (150-450); Red Blood Count 4.04 M/mm3 (4.1-5.6); Red Cell Distribution Width 15.2 % (11.5-14.0); White Blood Count 14.4 K/mm3 (4.0-10.5)
[2018-07-16 05:54] LABS: ALBUMIN 2.6 g/dL (3.5-5.0); ANION GAP 16.5 MEQ/L (5-15); BILIRUBIN,TOTAL 0.6 mg/dL (0.2-1.3); Calcium 8.2 mg/dL (8.4-10.2); Creatinine 1 4.99 mg/dL (0.66-1.25); Potassium 4.4 mmol/L (3.5-5.1); Total Protein 6.8 g/dL (6.3-8.2)
[2018-07-16 07:13] LABS: BAND 9 % (0.0-2.0); Eosinophil 2 % (0.00-3.0); Lymphocytes 13 % (24-44); Metamyelocyte 6 %; Monocyte 5 % (0.0-12.0); Neutrophils 65 % (36.-66.); Platelet Estimate INCREASED (NORMAL); Poikilocytosis 2+; Total Cells Counted 100; Toxic Granulation 1+
[2018-07-16 07:15] LABS: Granulocyte Absolute (ANC) 10.7 (1.4-6.9)
[2018-07-16 07:25] LABS: Hypochromia 2+
[2018-07-16] MEDS: Lantus Insulin SQ SCH (08:02)
[2018-07-16] MEDS: Catapres 0.1 MG PO SCH (08:03)
[2018-07-16] MEDS: KEFZOL 1 GM/50 ML PREMIX** 1 GM/50 ML IVPB IV SCH (10:10)
[2018-07-16] MEDS: Klor Con 10 MEQ PO SCH (10:10)
[2018-07-16] MEDS: Tricor 145 MG PO SCH (10:10)
[2018-07-16] MEDS: ENOXAPARIN SODIUM SQ SCH (10:11)
[2018-07-16] MEDS: DEMADEX 20 MG PO SCH (10:11)
[2018-07-16 11:36] VITALS: BP 155/70; PULSE 69; O2SAT 94
[2018-07-16 20:48] LABS: PROTEIN BETA 2 0.48 g/dL (0.18-0.50); Protein Beta 1 0.42 g/dL (0.35-0.66)
[2018-07-17 03:20] LABS: Monoclonal Protein ID Interp See Result Note:
--- NOTE | 2018-07-21 14:15 | DS ---
DISCHARGE DIAGNOSES: 1) SEPSIS DUE TO METHICILLIN SUSCEPTIBLE STAPHYLOCOCCUS AUREUS. 2) DIABETIC FOOT ULCER. 3) DIABETES MELLITUS TYPE 2, CONTROLLED. 4) ACUTE ON CHRONIC RENAL FAILURE. 5) HYPERTENSION. 6) CHARCOT FOOT. 7) FOOT ABCESS. 8) ACUTE OSTEOMYELITIS OF THE METATARSAL BONE OF THE RIGHT FOOT. DISCHARGE PHYSICAL EXAMINATION: VITALS: Temperature current 99.3F, temperature max 100F, heart rate 69, respiratory rate 18, blood pressure 155/70. Oxygen saturation 94% on room air. GENERAL: The patient was a pleasant talkative man sitting up in no acute distress. CVS: He had a regular rate and rhythm. No murmurs, gallops or rubs. CHEST: Clear to auscultation bilaterally. No crackles or wheezes. ABDOMEN: Soft, nontender, nondistended with normal bowel sounds. EXTREMITIES: He has +2 pitting edema to his knees bilaterally. His right foot was wrapped and dressed with recent pictures in the chart of his wound. HOSPITAL COURSE: 1) SEPSIS DUE TO METHICILLIN SUSCEPTIBLE STAPHYLOCOCCUS AUREUS: He was started on antibiotics when he was in the emergency department. He was started on Zosyn and Vancomycin with pharmacy to help dose on admission. His blood cultures quickly started growing gram-positive cocci with identification coming out as a methicillin susceptible Staphylococcus aureus and wound culture from his foot also grew this. He was continued on Zosyn and Vancomycin until the blood cultures came back with methicillin susceptible Staphylococcus aureus and that day that I had received those results we stopped the Vancomycin and continued with the Zosyn. He improved from standpoint of sepsis. However, he continued to have swelling in his feet bilaterally and when I rounded on him on 07/12/2018, he had developed some fluctuance of his foot where the wound was. 2) DIABETIC FOOT ULCER: The general surgeons were consulted for incision and drainage and they did this on 07/13/2018 with drainage of pus and they took another wound culture. 3) ACUTE ON CHRONIC RENAL FAILURE: The modeling teacher was consulted over the weekend of 07/10/2018 and saw the patient. At the time discharge his creatinine continued to slowly rise so the nephrologists were made aware of this on 07/16/2018 as their staff reported they were unable to reach them on 07/15/2018. His creatinine at the time of discharge was 4.99. They asked to have him transferred to [facility] under the care of Dr. Patterson for further treatment of this. 4) HYPERTENSION: The modeling teacher adjusted his blood pressure medicine and it fluctuated between being well controlled and being high. 5) CHARCOT FOOT: He usually sees Dr. Willis for this as an outpatient. 6) FOOT ABCESS: Again this was incised and drained by the general surgeons during his hospitalization. 7) ACUTE OSTEOMYELITIS OF THE METATARSAL BONE OF THE RIGHT FOOT: The patient had MRI on the Thursday before the foot was drained and there was concern for osteomyelitis so we asked to have a PICC line placed in his right arm in hopes that he could go home on IV antibiotics which changed to cefazolin close to the time of his discharge. However due to his acute renal failure, he required transfer to [facility] under the care of a modeling teacher for possible dialysis. DISCHARGE MEDICATIONS: This was left up to the modeling teacher who was the accepting physician at [facility]. DISPOSITION: The patient was discharged to [facility] for specialty care and possible dialysis.
== END 2018-07-16 13:04 | disposition short-term general hospital (02) | DRG 872 ==
LOC: ED 16:04 → MED SURG 18:10 → OBSVTOIN 07-08 08:18 → ED 07-08 16:04
PROVIDERS: ADMIT Internal Medicine; ATTEND Internal Medicine
PROC: 0HBMXZZ Excision of Right Foot Skin, External Approach (ICD-10-PCS; principal; 2018-07-13)
DX: A41.9 Sepsis, unspecified organism (principal); N17.9 Acute kidney failure, unspecified; L02.611 Cutaneous abscess of right foot; M86.171 Other acute osteomyelitis, right ankle and foot; E11.621 Type 2 diabetes mellitus with foot ulcer; L97.519 Non-pressure chronic ulcer of other part of right foot with unspecified severity; I10 Essential (primary) hypertension; E11.610 Type 2 diabetes mellitus with diabetic neuropathic arthropathy; R94.4 Abnormal results of kidney function studies; R60.9 Edema, unspecified; D72.829 Elevated white blood cell count, unspecified
CPT/HCPCS: 36000; 36415; 36569; 71045; 73630; 73718; 76770; 76937; 77001; 80048; 80053; 80202; 81001; 82570; 82962; 83036; 83520; 83605; 83735; 84156; 84165; 85025; 85610; 85730; 86038; 86160; 86255; 86256; 86334; 87040; 87070; 87077; 87086; 87186; 87205; 93268; 93306; 96360; 96365; 96367; 96374; 96375; 99285; C1769; J0295; J0456; J0690; J1642; J1650; J1885; J2270; J2405; J2543; J2704; J3010; J3370; A9270-GY; G0378

== ENCOUNTER 2018-10-22 15:33 | Emergency (ER) | payer BC ==
--- NOTE | 2018-10-22 15:40 | ERPHSYRPT ---
- History of Present Illness Time Seen by Provider: 10/22/18 15:40 Source: patient, EMS Exam Limitations: no limitations Physician History: 48 y/o obese, insulin dependent diabetic white male with h/po htn on lisinopril on dialysis presents to ED after 3 days in a row dialysis. pt not feeling well described as diaphoretic, nausea and vomiting for a day. pt feels weak. pt denies cp, denies soa and denies abd pain. Timing/Duration: day(s) (1) Severity: moderate Associated Symptoms: nausea, vomiting, weakness, No abdominal pain, No shortness of breath, No chest pain Allergies/Adverse Reactions: No Known Drug Allergies Allergy (Verified 07/07/18 16:30) Home Medications: Amlodipine Besylate 10 mg PO DAILY 07/07/18 [History] Clonidine HCl 0.1 mg PO HS 07/07/18 [History] Fenofibrate Nanocrystallized [Fenofibrate] 48 mg PO DAILY 07/07/18 [History] Gabapentin 600 mg PO DAILY PRN 07/07/18 [History] Insulin Glargine,Hum.rec.anlog [Lantus Solostar] 30 units SQ BID 07/07/18 [ History] Lisinopril 40 mg PO DAILY 07/07/18 [History] cloNIDine HCl [Clonidine HCl] 0.2 mg PO DAILY 07/07/18 [History] Hx Tetanus, Diphtheria Vaccination/Date Given: Yes Hx Influenza Vaccination/Date Given: Yes Hx Pneumococcal Vaccination/Date Given: No - Review of Systems Constitutional: Weakness Eyes: No Symptoms Ears, Nose, & Throat: No Symptoms Respiratory: No Symptoms Cardiac: No Symptoms Abdominal/Gastrointestinal: No Symptoms Genitourinary Symptoms: No Symptoms Musculoskeletal: No Symptoms Skin: No Symptoms Neurological: No Symptoms Psychological: No Symptoms Endocrine: No Symptoms Hematologic/Lymphatic: No Symptoms All Other Systems: Reviewed and Negative - Past Medical History Pertinent Past Medical History: Yes Neurological History: No Pertinent History ENT History: No Pertinent History Cardiac History: Hypertension Respiratory History: Pneumonia Endocrine Medical History: Diabetes Type II Musculoskeletal History: Other GI Medical History: No Pertinent History History: No Pertinent History Psycho-Social History: No Pertinent History Male Reproductive Disorders: No Pertinent History - Past Surgical History Past Surgical History: No Neuro Surgical History: No Pertinent History Cardiac: No Pertinent History Respiratory: No Pertinent History Gastrointestinal: No Pertinent History Genitourinary: No Pertinent History Musculoskeletal: No Pertinent History Male Surgical History: No Pertinent History - Social History Smoking Status: Never smoker Exposure to second hand smoke: Yes Alcohol Use: None Drug Use: none Patient Lives Alone: No Significant Family History: no pertinent family hx - Nursing Vital Signs Nursing Vital Signs: Initial Vital Signs Temperature 98.4 F 10/22/18 15:34 Pulse Rate 84 10/22/18 15:34 Respiratory Rate 16 10/22/18 15:34 Blood Pressure 142/65 10/22/18 15:34 O2 Sat by Pulse Oximetry 89 L 10/22/18 15:34 Pain Scale Pain Intensity 0 - Physical Exam General Appearance: no apparent distress, lethargy, obese Eye Exam: PERRL/EOMI, eyes nml inspection Ears, Nose, Throat Exam: normal ENT inspection, moist mucous membranes Neck Exam: normal inspection, non-tender, supple, full range of motion Respiratory Exam: normal breath sounds, lungs clear, airway intact, No chest tenderness, No respiratory distress Cardiovascular Exam: regular rate/rhythm, normal heart sounds, normal peripheral pulses Gastrointestinal/Abdomen Exam: soft, normal bowel sounds, No tenderness Rectal Exam: not done Back Exam: normal inspection, normal range of motion, No CVA tenderness, No vertebral tenderness Extremity Exam: normal inspection, normal range of motion, pelvis stable Neurologic Exam: oriented x 3, cooperative, senior 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 II-XII nml as tested, other ( mildy lethargic but rousable) Lymphatic Exam: No adenopathy SpO2 Interpretation: hypoxic O2 Delivery: Room Air - Course Nursing assessment & vital signs reviewed: Yes Ordered Tests: Active Orders 24 hr Category Date Time Status Undercutter Operator STAT Care 10/22/18 15:53 Active EKG-ER Only STAT Care 10/22/18 15:51 Active IV Insertion STAT Care 10/22/18 15:51 Active CHEST 1 VIEW (PORTABLE) Stat Exams 10/22/18 15:53 Completed HEAD WITHOUT CONTRAST [CT] Stat Exams 10/22/18 16:57 Ordered BLOOD CULTURE Stat Lab 10/22/18 16:13 Received CBC W DIFF Stat Lab 10/22/18 16:00 Completed CMP Stat Lab 10/22/18 16:00 Completed Lactic Acid Stat Lab 10/22/18 15:51 Completed Manual Differential NC Stat Lab 10/22/18 16:00 Completed NT PRO BNP Stat Lab 10/22/18 16:00 Completed TROPONIN Q3H Lab 10/22/18 16:00 Completed TROPONIN Q3H Lab 10/23/18 01:00 Ordered TROPONIN Q3H Lab 10/23/18 04:00 Ordered Medication Summary Discontinued Medications Generic Name Dose Route Start Last Admin Trade Name Freq PRN Reason Stop Dose Admin Meropenem 1 g/ Sodium Chloride 100 mls @ 200 mls/hr 10/22/18 18:05 10/22/18 18:12 IV 10/22/18 18:34 Not Given STAT STA Sodium Chloride 1,000 mls @ 999 mls/hr 10/22/18 18:06 10/22/18 18:12 Sodium Chloride 0.9% 1000 Ml IV 10/22/18 19:06 Not Given .Q1H1M STA Ondansetron HCl 4 mg 10/22/18 18:25 10/22/18 18:28 Zofran 4 Mg/2 Ml Vial IV 10/22/18 18:26 4 mg STAT ONE Administration Ondansetron HCl Confirm 10/22/18 18:27 Zofran 4 Mg/2 Ml Vial Administered 10/22/18 18:28 Dose 4 mg .ROUTE .STK-MED ONE Promethazine HCl 12.5 mg 10/22/18 17:10 10/22/18 17:25 Phenergan 25 Mg Inj IM 10/22/18 17:11 12.5 mg STAT ONE Administration Promethazine HCl Confirm 10/22/18 17:11 Phenergan 25 Mg Inj Administered 10/22/18 17:12 Dose 25 mg .ROUTE .STK-MED ONE Lab/Rad Data: Laboratory Result Diagrams 10/22/18 16:00 10/22/18 16:00 Laboratory Results 10/22/18 10/22/18 10/22/18 Range/Units 17:58 16:00 16:00 WBC (4.0-10.5) K/mm3 RBC (4.1-5.6) M/mm3 Hgb (12.5-18.0) gm/dl Hct (42-50) % MCV (78-100) fl MCH (26-32) pg MCHC (32-36) g/dl RDW (11.5-14.0) % Plt Count (150-450) K/mm3 MPV (6-9.5) fl Absolute Granulocytes (1.4-6.9) Segmented Neutrophils (36.-66.) % Band Neutrophils (0.0-2.0) % Lymphocytes (Manual) (24-44) % Monocytes (Manual) (0.0-12.0) % Eosinophils (Manual) (0.00-3.0) % Atypical Lymphocytes % Hypochromia Platelet Estimate (NORMAL) RBC Morphology Polychromasia Anisocytosis Sodium 136 L (137-145) mmol/L Potassium 4.4 (3.5-5.1) mmol/L Chloride 94 L (98-107) mmol/L Carbon Dioxide 31 H (22-30) mmol/L Anion Gap 15.6 H (5-15) MEQ/L BUN 26 H (9-20) mg/dL Creatinine 3.52 H (0.66-1.25) mg/dL Estimated GFR 19.8 ML/MIN Glucose 220 H (74-106) mg/dL Lactic Acid (0.4-2.0) Calcium 9.8 (8.4-10.2) mg/dL Total Bilirubin 1.00 (0.2-1.3) mg/dL AST 30 (17-59) U/L ALT 25 (0-50) U/L Alkaline Phosphatase 177 H (38-126) U/L Ammonia < 9 L (9-30) umol/L Troponin I 0.020 (0.000-0.034) ng/mL NT-Pro-B Natriuret Pep 7740 H (0-450) pg/mL Serum Total Protein 8.8 H (6.3-8.2) g/dL Albumin 4.1 (3.5-5.0) g/dL 10/22/18 10/22/18 Range/Units 16:00 15:51 WBC 12.5 H (4.0-10.5) K/mm3 RBC 4.34 (4.1-5.6) M/mm3 Hgb 11.2 L (12.5-18.0) gm/dl Hct 36.1 L (42-50) % MCV 83.2 (78-100) fl MCH 25.8 L (26-32) pg MCHC 31.0 L (32-36) g/dl RDW 18.7 H (11.5-14.0) % Plt Count 453 H (150-450) K/mm3 MPV 8.1 (6-9.5) fl Absolute Granulocytes 11.1 H (1.4-6.9) Segmented Neutrophils 89 H (36.-66.) % Band Neutrophils 1 (0.0-2.0) % Lymphocytes (Manual) 3 L (24-44) % Monocytes (Manual) 5 (0.0-12.0) % Eosinophils (Manual) 1 (0.00-3.0) % Atypical Lymphocytes 1 % Hypochromia 1+ Platelet Estimate INCREASED (NORMAL) RBC Morphology ABNORMAL Polychromasia RARE Anisocytosis 2+ Sodium (137-145) mmol/L Potassium (3.5-5.1) mmol/L Chloride (98-107) mmol/L Carbon Dioxide (22-30) mmol/L Anion Gap (5-15) MEQ/L BUN (9-20) mg/dL Creatinine (0.66-1.25) mg/dL Estimated GFR ML/MIN Glucose (74-106) mg/dL Lactic Acid 1.6 (0.4-2.0) Calcium (8.4-10.2) mg/dL Total Bilirubin (0.2-1.3) mg/dL AST (17-59) U/L ALT (0-50) U/L Alkaline Phosphatase (38-126) U/L Ammonia (9-30) umol/L Troponin I (0.000-0.034) ng/mL NT-Pro-B Natriuret Pep (0-450) pg/mL Serum Total Protein (6.3-8.2) g/dL Albumin (3.5-5.0) g/dL - Progress Progress: improved, re-examined Progress Note: 10/22/18 18:37 pt a bit more interactive. attempted earlier to perform ct head but pt could not tolerate. no n/v but dry heaves. will attempt again since he is more alert and awake. pt and mother prefer he go home if ct head not acute. i told them lets wait and see what is found. 10/22/18 19:22 pt is feeling better. refusing ct head. mom states pt told her same. pt does not want admission or transfer at this time. mom states pt has had problems undergoing ct head in past with same sx. pt to sign refusal of care forms. 10/22/18 19:24 Counseled pt/family regarding: lab results, diagnosis, need for follow-up, rad results - Departure Departure Disposition: Home, AMA Clinical Impression: Weakness, Nausea & vomiting Condition: Stable Critical Care Time: No Referrals: CECILIA MOLINA MD [NON-STAFF PHY W/O PRIVILEGES] - Additional Instructions: take medications as prescribed. except, check your blood sugar levels and make sure you are tolerating your renal and diabetic diet before giving yourself insulin. return to ED if symptoms worsen. follow up with primary doctor and culinary intern for further management
--- NOTE | 2018-10-22 16:21 | XRAY ---
Indication: Hypoxia and weakness. Comparison: July 07, 2018. Portable chest demonstrates new right large bore dialysis catheter without complications. Remaining heart and lungs normal. Bony thorax intact.
[2018-10-22 16:22] LABS: Hematocrit 36.1 % (42-50); Hemoglobin 11.2 gm/dl (12.5-18.0); Mean Cell Volume 83.2 fl (78-100); Mean Corpuscular Hemoglobin 25.8 pg (26-32); Mean Platelet Volume 8.1 fl (6-9.5); Platelet Count 453 K/mm3 (150-450); Red Blood Count 4.34 M/mm3 (4.1-5.6); Red Cell Distribution Width 18.7 % (11.5-14.0); White Blood Count 12.5 K/mm3 (4.0-10.5)
[2018-10-22 16:42] LABS: ALBUMIN 4.1 g/dL (3.5-5.0); ANION GAP 15.6 MEQ/L (5-15); Calcium 9.8 mg/dL (8.4-10.2); Creatinine 1 3.52 mg/dL (0.66-1.25); Potassium 4.4 mmol/L (3.5-5.1); Total Protein 8.8 g/dL (6.3-8.2)
[2018-10-22 16:46] LABS: ATYPICAL LYMPHS 1 %; BAND 1 % (0.0-2.0); Eosinophil 1 % (0.00-3.0); Lymphocytes 3 % (24-44); Monocyte 5 % (0.0-12.0); Neutrophils 89 % (36.-66.); Total Cells Counted 100
[2018-10-22 16:47] LABS: Platelet Estimate INCREASED (NORMAL)
[2018-10-22 16:48] LABS: ANISOCYTOSIS 2+; Hypochromia 1+; Polychromasia RARE
[2018-10-22 16:49] LABS: Granulocyte Absolute (ANC) 11.1 (1.4-6.9)
[2018-10-22] MEDS ORDERED: Phenergan 25 MG INJ ONE (17:11)
[2018-10-22] MEDS: Phenergan 25 MG INJ IM ONE (17:25)
[2018-10-22] MEDS: Merrem 1 GM 1 G in Sodium Chloride 100ML MINI-BAG PLUS 100 ML IV STA (18:12)
[2018-10-22] MEDS: Sodium Chloride 0.9% 1000 ML 1,000 ML IV STA (18:12)
[2018-10-22] MEDS ORDERED: Zofran 4 MG/2 ML VIAL ONE (18:27)
[2018-10-22] MEDS: Zofran 4 MG/2 ML VIAL IV ONE (18:28)
[2018-10-22 19:53] VITALS: BP 92/69; PULSE 90; O2SAT 94
== END 2018-10-22 20:43 | disposition home or self-care (01) ==
LOC: ED 15:33
DX: R53.1 Weakness (principal); R11.2 Nausea with vomiting, unspecified
CPT/HCPCS: 36000; 36415; 71045; 80053; 82140; 83605; 83880; 84484; 85025; 87040; 93005; 93041; 96372; 96374; 96375; 99284; J2405; J2550

== ENCOUNTER 2019-01-10 09:57 | Day surgery (SDC) | payer BC ==
--- NOTE | 2019-01-10 08:17 | HP ---
DATE OF SURGERY: 01/10/2019 HISTORY OF PRESENT ILLNESS: The patient is a 48 year-old with some renal failure requesting peritoneal dialysis access. PAST MEDICAL HISTORY: Obesity, diabetes, hypertension. PAST SURGICAL HISTORY: He had left fifth toe removed and right foot removed in the past. He had diabetic foot disease. MEDICATIONS: Humalog, Labetalol, Eliquis, gabapentin, Auryxia, clonidine. ALLERGIES: NKDA. FAMILY HISTORY: Diabetes, hypertension. SOCIAL HISTORY: He denies smoking or alcohol abuse. REVIEW OF SYSTEMS: Fourteen systems reviewed pertinent for multiple medical problems noted above and renal failure. No chest pain or palpitations currently. PHYSICAL EXAMINATION: GENERAL: A chronically ill gentleman in no acute distress. HEENT: Sclerae nonicteric. CHEST: Equal excursion, nonlabored breathing. CVS: Regular rate and rhythm. ABDOMEN: Soft, obese. No peritoneal signs. EXTREMITIES: Left fifth toe removed, right foot removed in the past. NEURO: Alert, oriented, moving extremities grossly symmetrically. IMPRESSION: Renal failure, diabetes, hypertension. He is in need of peritoneal dialysis access. I feel he is a candidate. He was shown the risk sheet, explained the procedure in detail including bleeding or infection, risk of bowel injury or perforation possibly requiring further procedure, risk of trocar injury or hernia, risk of bowel, blood vessel, bladder injury possibly requiring other procedures. He understands possibility of needing an open procedure, possibility of scar formation or adhesions up against the catheter and sometimes up to half the patients sometimes the peritoneal catheter does not function well enough to work for retirement dialysis. He understands as well as the overall risk of catheter infection or peritonitis possibly requiring removal down the road, general risk of adhesions or obstruction, general risk of aches and pains but not limited to. He understands as well as general risk of anesthesia, deep venous thrombosis, pulmonary embolism but not limited to, will proceed with laparoscopic peritoneal dialysis catheter placement possible open as an outpatient.
[~2019-01-10 09:57] MED LIST: Lactated Ringers 1,000 ML IV ONE; Lactated Ringers 1,000 ML IV SCH; Sensorcaine 0.25% 10 ML ONE
[2019-01-10] MEDS ORDERED: Sodium Chloride 0.9% 500 ML 500 ML IV SCH (10:30)
[2019-01-10] MEDS ORDERED: Sodium Chloride 0.9% 500 ML 500 ML IV ONE (10:54)
[2019-01-10] MEDS ORDERED: KEFZOL 1 GM** 3 G in Sodium Chloride 0.9% 50 ML 50 ML IV ONE (11:10)
[2019-01-10 11:32] LABS: Hematocrit 35.7 % (42-50); Hemoglobin 11.7 gm/dl (12.5-18.0); Mean Cell Volume 88.8 fl (78-100); Mean Corpuscular Hemoglobin 29.1 pg (26-32); Mean Corpuscular Hgb Concent. 32.8 g/dl (32-36); Mean Platelet Volume 8.5 fl (6-9.5); Platelet Count 235 K/mm3 (150-450); Red Blood Count 4.02 M/mm3 (4.1-5.6); Red Cell Distribution Width 20.8 % (11.5-14.0); White Blood Count 10.6 K/mm3 (4.0-10.5)
[2019-01-10 11:38] LABS: ALBUMIN 4.2 g/dL (3.5-5.0); ANION GAP 16.3 MEQ/L (5-15); BILIRUBIN,TOTAL 0.8 mg/dL (0.2-1.3); Calcium 9.3 mg/dL (8.4-10.2); Creatinine 1 3.95 mg/dL (0.66-1.25); Potassium 4.4 mmol/L (3.5-5.1)
[2019-01-10] MEDS ORDERED: Quelicin Fliptop 200 MG/10 ML ONE (12:19)
[2019-01-10] MEDS ORDERED: DIPRIVAN 200 MG/20 ML IV ONE (12:19)
[2019-01-10] MEDS ORDERED: SUBLIMAZE 100 MCG/2 ML ONE (12:19)
[2019-01-10] MEDS ORDERED: Zemuron 100 MG/10 ML ONE (12:19)
[2019-01-10] MEDS ORDERED: Sodium Chloride 0.9% 250 ML 250 ML IV ONE (12:40)
[2019-01-10] MEDS ORDERED: Sodium Chloride 0.9% 1000 ML 1,000 ML ONE (12:41)
[2019-01-10] MEDS ORDERED: BACIGUENT 30 GM ONE (12:43)
[2019-01-10] MEDS ORDERED: BRIDION 200MG/2ML IV ONE (12:45)
[2019-01-10] MEDS ORDERED: Zofran 4 MG/2 ML VIAL ONE (12:45)
[2019-01-10] MEDS ORDERED: Decadron 4 MG INJ ONE (12:45)
[2019-01-10] MEDS ORDERED: APRESOLINE 20 MG/ML INJ ONE (13:12)
[2019-01-10 14:56] VITALS: O2SAT 91
[2019-01-10 15:13] VITALS: BP 151/82; PULSE 81
--- NOTE | 2019-01-11 08:39 | OP ---
SURGERY DATE/TIME: 01/10/2019 1220 PREOPERATIVE DIAGNOSIS: Renal failure, need for peritoneal dialysis access. POSTOPERATIVE DIAGNOSIS: Renal failure, need for peritoneal dialysis access. PROCEDURE: Laparoscopic peritoneal dialysis catheter placement. SURGEON: Dr. Wilson Arora. ANESTHESIA: General. ESTIMATED BLOOD LOSS: Minimal. INDICATIONS: As noted above. Risks and benefits explained in detail and not limited to and consent obtained. DESCRIPTION OF PROCEDURE AND FINDINGS: The patient is taken to the operating room. General anesthesia induced. Abdomen prepped and draped in usual sterile fashion. After official time out and no disagreement with planned procedure, a transverse incision made supraumbilical area. Fascia grasped and pulled upward. Veress needle tested with saline. Pneumoperitoneum accomplished opening pressure 0 to 15. A 5 mm bladeless port and camera inserted without difficulty followed by 5 mm left mid abdomen port and an 8 mm lower quadrant port angled towards the pelvis. He had a lot of adipose tissue but it was felt he had enough space to try putting the catheter down in the pelvis. The peritoneal catheter was carefully placed through the port and directed down towards behind the bladder, in front of the viscera in the pelvis area. The internal cuff was at the level of the fascia. The external was on the subcu. Given his obesity the catheter was tunneled out a little bit more laterally. Secured away from the exit site with Prolene suture with Bacitracin and sterile dressing applied. The Titanium connector was attached. The catheter flushed easily with the injectable saline, clamp secured and a cap placed on it for the peritoneal dialysis catheter as a request. Sterile dressing applied. Patient tolerated the procedure well. There were no immediate complications. Skin incision closed with 4-0 Vicryl. 0.25% Marcaine local injected along the skin incision fascial defect at the beginning of the procedure. There were no immediate complications. There was no family available to discuss the findings with at this time.
== END 2019-01-10 15:15 | disposition home or self-care (01) ==
LOC: SDC 09:57
PROVIDERS: ATTEND Surgery
DX: N19 Unspecified kidney failure (principal); E11.9 Type 2 diabetes mellitus without complications; I10 Essential (primary) hypertension; E66.9 Obesity, unspecified; Z79.01 Long term (current) use of anticoagulants; Z79.899 Other long term (current) drug therapy
CPT/HCPCS: 36415; 80053; 82962; 85027; J0330; J0360; J0690; J1100; J2405; J2704; J3010; A9270-GY

== ENCOUNTER 2020-09-27 14:19 | Observation (INO) | payer BC ==
[2020-09-27] MEDS ORDERED: NEBCIN INJ IV ONE (15:40)
[2020-09-27 16:23] LABS: Absolute Neutrophil Ct (ANC) 11.71 (1.4-6.9); BASOPHIL % 0.3 % (0.0-0.4); Basophil (Absolute #) 0.04 (0-0.4); Eosinophil (Absolute #) 0.28 (0-0.5); Hematocrit 34.3 % (42-50); Hemoglobin 10.6 gm/dl (12.5-18.0); Lymphocyte (Absolute #) 1.08 (1.0-4.6); Lymphocytes % 7.5 % (24.0-44.0); Mean Cell Volume 97.7 fl (78-100); Mean Corpuscular Hemoglobin 30.2 pg (26-32); Mean Corpuscular Hgb Concent. 30.9 g/dl (32-36); Mean Platelet Volume 8.3 fl (7.5-11.0); Monocytes % 8.4 % (0.0-12.0); Neutrophil % 81.8 % (36.0-66.0); Platelet Count 331 K/mm3 (150-450); Red Blood Count 3.51 M/mm3 (4.1-5.6); Red Cell Distribution Width 15.8 % (11.5-14.0); White Blood Count 14.3 K/mm3 (4.0-10.5)
[2020-09-27 16:52] LABS: ALBUMIN 4.1 g/dL (3.5-5.0); ANION GAP 18.7 MEQ/L (5-15); BILIRUBIN,TOTAL 0.9 mg/dL (0.2-1.3); Calcium 8.7 mg/dL (8.4-10.2); Creatinine 1 5.73 mg/dL (0.66-1.25); EST GLOMERULAR FILTRATION RATE 11.2 ML/MIN; Potassium 5.1 mmol/L (3.5-5.1)
--- NOTE | 2020-09-27 16:56 | PCM.CONS ---
Podiatry HPI - Consult Date of Consultation Date: 09/27/20 Reason for Consult: DFU, pressure ulceration to level of tendon, Anterior ankle ulceration left ankle Consulting Provider: MACHO GUNDERSON DPM - [facility] History of Present Illness: Colin is a very pleasant 50-year-old male who presents today for follow-up of a left anterior Ankle wound. He does indicate that his mother has been taking care of the wound since the last time he has been seen. He indicates that physical therapy discharged him due to his insurance coverage being expanded. At this time on removal of the dressings tendon is once again exposed and the wound is approximately 2 cm larger in each direction. Patient indicates that he felt as though the wound was getting better. He currently denies any constitutional symptoms of infection. He denies any other pedal complaints at this time. Medications & Allergies Home Medications: Home Medication List Clonidine HCl 0.1 mg PO TID 07/07/18 [History Confirmed 01/10/19] Gabapentin 600 mg PO BID 07/07/18 [History Confirmed 01/10/19] Insulin Glargine,Hum.rec.anlog [Lantus Solostar] 25 units SQ QHS 07/07/18 [History Confirmed 01/10/19] Ferric Citrate [Auryxia] 2 tab PO UD 12/29/18 [History Confirmed 01/10/19] Insulin Lispro [Humalog] 5 unit SQ UD 12/29/18 [History Confirmed 01/10/19] Labetalol HCl [Trandate] 200 mg PO BID 12/29/18 [History Confirmed 01/10/19] Apixaban [Eliquis] 5 mg PO DAILY #0 01/10/19 [Rx Confirmed 01/10/19] Promethazine HCl 25 mg [Phenergan 25 mg] 12.5 mg PO Q6HPRN PRN #10 tablet 01/10/19 [Rx] Tramadol HCl 50 mg [Ultram 50 mg] 50 mg PO Q6H PRN PRN #15 tablet 01/10/19 [Rx] Allergies/Adverse Reactions: Allergies Allergy/AdvReac Type Severity Reaction Status Date / Time No Known Drug Allergies Allergy Verified 01/10/19 10:44 - Past Medical History Past Medical History: Yes Neurological History: Peripheral Neuropathy ENT History: No Pertinent History Cardiac History: Hypertension Respiratory History: No Pertinent History Endocrine Medical History: Diabetes Type II, Other Musculoskelatal History: Other GI Medical History: No Pertinent History History: Dialysis, Renal Disease, Other Pyscho-Social History: No Pertinent History Male Reproductive Disorders: No Pertinent History Comment: CKD STAGE 5 WITH DIALYSIS , R BKA - Past Surgical History Past Surgical History: Yes Neuro Surgical History: No Pertinent History Cardiac History: No Pertinent History Respiratory Surgery: No Pertinent History GI Surgical History: No Pertinent History Genitourinary Surgical Hx: No Pertinent History Musculskeletal Surgical Hx: Amputation Male Surgical History: No Pertinent History Other Surgical History: permacath placed right chest (removed). july 2018 right below the knee amputation. AV fistula Left upper arm. L little toe removed 5 yr ago - Social History Smoking Status: Never smoker Exposure to second hand smoke: Yes Alcohol: Rarely Drug Use: none Significant Family History: no pertinent family hx Physical Exam - Narrative Narrative Physical Exam: Podiatry Physical Exam Vascular: DP and PT pulses palpable left. CFT <5 seconds. Skin temperature warm to cool from the proximal tibial tuberosity to distal toes . Normal pedal hair growth. Varicosities noted to lower leg. No cellulitis, proximal streaking or lymphangitis noted. No lymphadenopathy on palpation of the popliteal or inguinal lymph nodes Neurological: Protective sensation diminished 0/10 on the right and 0/10 on the left as indicated with Woodruff-Valerie 5.07 monofilament. Lower extremity temperature sensation diminished. Evidence of intrinsic muscle atrophy. Dermatological: Trophic changes to the skin. Skin is xerotic and scaly in nature. Turgor is rigid. No cicatrix noted. Webspaces are clean, dry and intact b/l. Musculoskeletal: Strength intact to the left lower extremity for all muscle groups. Rectus foot architecture noted. Normal range of motion to all pedal joints. There is minimal pain on palpation of the periwound area. Antalgic gait and rcih secondary to BKA to the right lower extremity. Patient is ambulating in a pair of athletic shoes. Prosthetic device to right foot Wound Care / Suspicious Lesions: Wound #1 Location Left anterior ankle Size -6 cm x 4.3 cm x 0.5 cm Appearance - 90% granular 10% fibrotic S/S of infection - Negative undermining. Negative probe to bone Additional -Exposed extensor hallucis longus. Unable to assess if exposed nerves or veins. Significant fibrotic tissue. Significant edema noted. Significant drainage serous in nature. Results - Labs Lab/Micro Results: Lab Results-Last 24 Hours 09/27/20 09/27/20 09/27/20 Range/Units 16:10 16:10 16:33 WBC 14.3 H (4.0-10.5) K/mm3 RBC 3.51 L (4.1-5.6) M/mm3 Hgb 10.6 L (12.5-18.0) gm/dl Hct 34.3 L (42-50) % MCV 97.7 (78-100) fl MCH 30.2 (26-32) pg MCHC 30.9 L (32-36) g/dl RDW 15.8 H (11.5-14.0) % Plt Count 331 (150-450) K/mm3 MPV 8.3 (7.5-11.0) fl Gran % 81.8 H (36.0-66.0) % Eos # (Auto) 0.28 (0-0.5) Absolute Lymphs (auto) 1.08 (1.0-4.6) Absolute Monos (auto) 1.20 (0.0-1.3) Lymphocytes % 7.5 L (24.0-44.0) % Monocytes % 8.4 (0.0-12.0) % Eosinophils % 2.0 (0.00-5.0) % Basophils % 0.3 (0.0-0.4) % Absolute Granulocytes 11.71 H (1.4-6.9) Basophils # 0.04 (0-0.4) ESR Pending Sodium 132 L (137-145) mmol/L Potassium 5.1 (3.5-5.1) mmol/L Chloride 87 L (98-107) mmol/L Carbon Dioxide 31 H (22-30) mmol/L Anion Gap 18.7 H (5-15) MEQ/L BUN 32 H (9-20) mg/dL Creatinine 5.73 H (0.66-1.25) mg/dL Estimated GFR 11.2 ML/MIN Glucose 310 H (74-106) mg/dL POC Glucometer 268 H (74 to 106) mg/dL Calcium 8.7 (8.4-10.2) mg/dL Total Bilirubin 0.90 (0.2-1.3) mg/dL AST 29 (17-59) U/L ALT 28 (0-50) U/L Alkaline Phosphatase 126 (38-126) U/L Serum Total Protein 8.0 (6.3-8.2) g/dL Albumin 4.1 (3.5-5.0) g/dL Assessment/Plan (1) Type II diabetes mellitus, well controlled Current Visit: No Status: Acute Code(s): E11.9 - TYPE 2 DIABETES MELLITUS WITHOUT COMPLICATIONS (2) Charcot foot due to diabetes mellitus Current Visit: No Status: Acute Code(s): E11.610 - TYPE 2 DIABETES MELLITUS W DIABETIC NEUROPATHIC ARTHROPATHY (3) Diabetic foot ulcer associated with type 2 diabetes mellitus Current Visit: No Status: Acute Code(s): E11.621 - TYPE 2 DIABETES MELLITUS WITH FOOT ULCER; L97.509 - NON-PRESSURE CHRONIC ULCER OTH PRT UNSP FOOT W UNSP SEVERITY (4) Foot ulcer Current Visit: No Status: Acute Assessment & Plan: Patient at this time has shown a recurrence of exposed extensor hallucis longus tendon and would benefit from surgical debridement of the necrotic and fibrotic tissue at the wound base as well as application of a synthetic skin substitute in order to obtain closure over the exposed tendon. Though patient is reluctant he understands that it is only a matter of time before an infection begins to invade the wound and travel up the tendon sheath resulting in a significantly more debilitating infection and possibly surgery. Dr. Apodaca is willing to admit for observation at this time. Patient does not need to be n.p.o. prior to surgical intervention as he is neuropathic and we will proceed with a local injection in order to block wound debridement. Tentative surgical date will be for September 28, 2020. Consent to read: "Incision drainage and soft tissue debridement to level of tendon, pulse lavage, application of synthetic skin substitute."."." CBC with differential, CMP, ESR, CRP, HbA1c, lactic acid PICC line placement We will hold on antibiotics at this time until CMP has been obtained. Nonweightbearing to the left lower extremity full weightbearing to prosthesis to right with assistive device. Cam walker to the left lower extremity following s urgical intervention tomorrow. Patient will be planned for discharge to nursing facility. PT OT consult treat and eval. Social service consult for discharge preferred SNF Code(s): L97.509 - NON-PRESSURE CHRONIC ULCER OTH PRT UNSP FOOT W UNSP SEVERITY
[2020-09-27 17:01] LABS: Erythrocyte Sedimentation Rate 129 mm/hr (0-15)
[2020-09-27] MEDS ORDERED: PHARMACY DOSING REQUIRED: VANCOMYCIN IV STA (17:08)
[2020-09-27] MEDS ORDERED: PHARMACY DOSING REQUEST MC ONE (17:10)
[2020-09-27] MEDS ORDERED: NON-FORMULARY ITEM (Insulin Lispro 0 UNIT) SQ SCH (17:45)
[2020-09-27] MEDS ORDERED: MEDICATION INTERVENTION PO SCH (17:45)
[2020-09-27] MEDS: HUMALOG SQ PRN ×2 (18:14→21:15)
[2020-09-27] MEDS: Zosyn 3.375 GM Vial 3.375 GM in Sodium Chloride 100ML MINI-BAG PLUS 100 ML IV SCH (18:15)
[2020-09-27] MEDS ORDERED: VANCOMYCIN 1 GRAM/200 ML BAG 1 GM/200 ML PIGGYBACK IV SCH (19:00)
[2020-09-27] MEDS: NEURONTIN 300 MG PO SCH (21:13)
[2020-09-27] MEDS: Trandate 100 MG PO SCH (21:14)
[2020-09-27] MEDS: Zestril 20 MG PO SCH (21:14)
[2020-09-27] MEDS: Catapres 0.1 MG PO SCH (21:15)
[2020-09-27] MEDS ORDERED: Lantus Insulin SQ SCH (22:00)
[2020-09-27] MEDS ORDERED: LABETALOL HCL PO SCH (22:00)
[2020-09-27] MEDS ORDERED: NON-FORMULARY ITEM (Lisinopril [Lisinopril] 40 MG) PO SCH (22:00)
[2020-09-27] MEDS ORDERED: NON-FORMULARY ITEM (Insulin Detemir [Levemir] 60 UNIT) SQ SCH (22:00)
[2020-09-27] MEDS ORDERED: NON-FORMULARY ITEM (Calcitriol [Calcitriol] 0.5 MCG) PO SCH (22:00)
[2020-09-28] MEDS: Zosyn 3.375 GM Vial 3.375 GM in Sodium Chloride 100ML MINI-BAG PLUS 100 ML IV SCH (06:31)
[2020-09-28] MEDS ORDERED: XYLOCAINE 1% HCL 20 ML MDV ONE (06:51)
[2020-09-28] MEDS ORDERED: BUPIVACAINE 0.5% VIAL IJ ONE (06:51)
[2020-09-28] MEDS ORDERED: Sodium Chloride 0.9% 1000 ML 1,000 ML ONE (08:29)
[2020-09-28] MEDS: Zestril 20 MG PO SCH (09:30)
[2020-09-28] MEDS: Trandate 100 MG PO SCH (09:30)
[2020-09-28] MEDS: NEURONTIN 300 MG PO SCH (09:30)
[2020-09-28] MEDS: Catapres 0.1 MG PO SCH (09:31)
[2020-09-28] MEDS ORDERED: Protonix 40MG Tablet PO SCH (10:00)
[2020-09-28] MEDS: HUMALOG SQ PRN (12:10)
--- NOTE | 2020-09-28 13:03 | PCM.SSS ---
History of Present Illness - Chief Complaint Chief Complaint: Diabetic left foot ulcer, DM History of Present Illness: is a 50 year old male with hx of right BKA, has an open ulcer with exposed tendon to left lower ankle, went to surgery with Dr Pressley this am for bead placement and debridement, needs to go to dialysis this afternoon and will f/u next week with podiatry, has no need for pain meds, no further oral or IV abx required due to abx beads. - Review of Systems Constitutional: No Fever, No Chills Respiratory: No Cough, No Short Of Breath Cardiac: No Chest Pain, No Edema, No Syncope Abdominal/Gastrointestinal: No Abdominal Pain, No Nausea, No Vomiting, No Diarrhea All Other Systems: Reviewed and Negative Medications & Allergies Home Medications: Home Medication List Clonidine HCl 0.1 mg PO BID 07/07/18 [History Confirmed 09/27/20] Gabapentin 600 mg PO BID 07/07/18 [History Confirmed 09/27/20] Insulin Lispro [Humalog] 0 unit SQ UD 12/29/18 [History Confirmed 09/27/20] Labetalol HCl [Trandate] 200 mg PO BID 12/29/18 [History Confirmed 09/27/20] Calcitriol 0.5 mcg PO BID 09/27/20 [History Confirmed 09/27/20] Insulin Detemir [Levemir] 60 unit SQ HS 09/27/20 [History Confirmed 09/27/20] Lisinopril 40 mg PO BID 09/27/20 [History Confirmed 09/27/20] PANTOPRAZOLE 40 mg Tablet [Protonix 40MG Tablet] 40 mg PO DAILY 09/27/20 [History Confirmed 09/27/20] Allergies/Adverse Reactions: Allergies Allergy/AdvReac Type Severity Reaction Status Date / Time No Known Drug Allergies Allergy Verified 01/10/19 10:44 - Past Medical History Past Medical History: Yes Neurological History: Peripheral Neuropathy ENT History: No Pertinent History Cardiac History: Hypertension Respiratory History: No Pertinent History Endocrine Medical History: Diabetes Type II, Other Musculoskelatal History: Other GI Medical History: No Pertinent History History: Dialysis, Renal Disease, Other Pyscho-Social History: No Pertinent History Male Reproductive Disorders: No Pertinent History Comment: CKD STAGE 5 WITH DIALYSIS , R BKA - Past Surgical History Past Surgical History: Yes Neuro Surgical History: No Pertinent History Cardiac History: No Pertinent History Respiratory Surgery: No Pertinent History GI Surgical History: No Pertinent History Genitourinary Surgical Hx: No Pertinent History Musculskeletal Surgical Hx: Amputation Male Surgical History: No Pertinent History Other Surgical History: permacath placed right chest (removed). july 2018 right below the knee amputation. AV fistula Left upper arm. L little toe removed 5 yr ago - Social History Smoking Status: Never smoker Exposure to second hand smoke: Yes Alcohol: Rarely Drug Use: none Significant Family History: no pertinent family hx - Physical Exam Vital Signs: Vital Signs - 24 hr Temp Pulse Resp BP Pulse Ox 09/28/20 08:00 99.5 F 83 18 130/59 91 L 09/28/20 04:00 98.4 F 76 20 145/66 93 L 09/28/20 01:46 98.6 F 75 18 141/65 96 09/27/20 23:53 98.6 F 75 18 141/65 96 09/27/20 20:00 99.0 F 80 20 145/64 96 09/27/20 16:49 98.8 F 74 18 150/70 94 L 09/27/20 15:45 98.8 F 74 18 150/70 94 L General Appearance: no apparent distress, obese Neurologic Exam: alert, oriented x 3, cooperative Respiratory Exam: normal breath sounds, lungs clear, No respiratory distress Cardiovascular Exam: regular rate/rhythm, normal heart sounds, normal peripheral pulses Gastrointestinal/Abdomen Exam: soft, normal bowel sounds, No tenderness, No mass Extremity Exam: other (right BKA with prosthesis, boot on left lower extremity, dressing intact) Results - Labs Lab/Micro Results: Lab Results-Last 24 Hours 09/27/20 09/27/20 09/27/20 Range/Units 15:51 16:10 16:10 WBC 14.3 H (4.0-10.5) K/mm3 RBC 3.51 L (4.1-5.6) M/mm3 Hgb 10.6 L (12.5-18.0) gm/dl Hct 34.3 L (42-50) % MCV 97.7 (78-100) fl MCH 30.2 (26-32) pg MCHC 30.9 L (32-36) g/dl RDW 15.8 H (11.5-14.0) % Plt Count 331 (150-450) K/mm3 MPV 8.3 (7.5-11.0) fl Gran % 81.8 H (36.0-66.0) % Eos # (Auto) 0.28 (0-0.5) Absolute Lymphs (auto) 1.08 (1.0-4.6) Absolute Monos (auto) 1.20 (0.0-1.3) Lymphocytes % 7.5 L (24.0-44.0) % Monocytes % 8.4 (0.0-12.0) % Eosinophils % 2.0 (0.00-5.0) % Basophils % 0.3 (0.0-0.4) % Absolute Granulocytes 11.71 H (1.4-6.9) Basophils # 0.04 (0-0.4) ESR 129 H (0-15) mm/hr Sodium 132 L (137-145) mmol/L Potassium 5.1 (3.5-5.1) mmol/L Chloride 87 L (98-107) mmol/L Carbon Dioxide 31 H (22-30) mmol/L Anion Gap 18.7 H (5-15) MEQ/L BUN 32 H (9-20) mg/dL Creatinine 5.73 H (0.66-1.25) mg/dL Estimated GFR 11.2 ML/MIN Glucose 310 H (74-106) mg/dL POC Glucometer (74 to 106) mg/dL Hemoglobin A1c (4.5-6.0) % Calcium 8.7 (8.4-10.2) mg/dL Total Bilirubin 0.90 (0.2-1.3) mg/dL AST 29 (17-59) U/L ALT 28 (0-50) U/L Alkaline Phosphatase 126 (38-126) U/L Serum Total Protein 8.0 (6.3-8.2) g/dL Albumin 4.1 (3.5-5.0) g/dL SARS-CoV-2 (PCR) NEGATIVE (NEGATIVE) 09/27/20 09/27/20 09/27/20 Range/Units 16:33 16:50 20:57 WBC (4.0-10.5) K/mm3 RBC (4.1-5.6) M/mm3 Hgb (12.5-18.0) gm/dl Hct (42-50) % MCV (78-100) fl MCH (26-32) pg MCHC (32-36) g/dl RDW (11.5-14.0) % Plt Count (150-450) K/mm3 MPV (7.5-11.0) fl Gran % (36.0-66.0) % Eos # (Auto) (0-0.5) Absolute Lymphs (auto) (1.0-4.6) Absolute Monos (auto) (0.0-1.3) Lymphocytes % (24.0-44.0) % Monocytes % (0.0-12.0) % Eosinophils % (0.00-5.0) % Basophils % (0.0-0.4) % Absolute Granulocytes (1.4-6.9) Basophils # (0-0.4) ESR (0-15) mm/hr Sodium (137-145) mmol/L Potassium (3.5-5.1) mmol/L Chloride (98-107) mmol/L Carbon Dioxide (22-30) mmol/L Anion Gap (5-15) MEQ/L BUN (9-20) mg/dL Creatinine (0.66-1.25) mg/dL Estimated GFR ML/MIN Glucose (74-106) mg/dL POC Glucometer 268 H 318 H (74 to 106) mg/dL Hemoglobin A1c 9.37 H (4.5-6.0) % Calcium (8.4-10.2) mg/dL Total Bilirubin (0.2-1.3) mg/dL AST (17-59) U/L ALT (0-50) U/L Alkaline Phosphatase (38-126) U/L Serum Total Protein (6.3-8.2) g/dL Albumin (3.5-5.0) g/dL SARS-CoV-2 (PCR) (NEGATIVE) 09/28/20 09/28/20 Range/Units 07:27 11:31 WBC (4.0-10.5) K/mm3 RBC (4.1-5.6) M/mm3 Hgb (12.5-18.0) gm/dl Hct (42-50) % MCV (78-100) fl MCH (26-32) pg MCHC (32-36) g/dl RDW (11.5-14.0) % Plt Count (150-450) K/mm3 MPV (7.5-11.0) fl Gran % (36.0-66.0) % Eos # (Auto) (0-0.5) Absolute Lymphs (auto) (1.0-4.6) Absolute Monos (auto) (0.0-1.3) Lymphocytes % (24.0-44.0) % Monocytes % (0.0-12.0) % Eosinophils % (0.00-5.0) % Basophils % (0.0-0.4) % Absolute Granulocytes (1.4-6.9) Basophils # (0-0.4) ESR (0-15) mm/hr Sodium (137-145) mmol/L Potassium (3.5-5.1) mmol/L Chloride (98-107) mmol/L Carbon Dioxide (22-30) mmol/L Anion Gap (5-15) MEQ/L BUN (9-20) mg/dL Creatinine (0.66-1.25) mg/dL Estimated GFR ML/MIN Glucose (74-106) mg/dL POC Glucometer 174 H 245 H (74 to 106) mg/dL Hemoglobin A1c (4.5-6.0) % Calcium (8.4-10.2) mg/dL Total Bilirubin (0.2-1.3) mg/dL AST (17-59) U/L ALT (0-50) U/L Alkaline Phosphatase (38-126) U/L Serum Total Protein (6.3-8.2) g/dL Albumin (3.5-5.0) g/dL SARS-CoV-2 (PCR) (NEGATIVE) Accuchecks Date 09/27/20 Assessment/Plan (1) Diabetic foot ulcer associated with type 2 diabetes mellitus Current Visit: No Status: Acute Assessment & Plan: will f/u with Dr Pressley next week Code(s): E11.621 - TYPE 2 DIABETES MELLITUS WITH FOOT ULCER; L97.509 - NON- PRESSURE CHRONIC ULCER OTH PRT UNSP FOOT W UNSP SEVERITY (2) Type II diabetes mellitus, uncontrolled Current Visit: Yes Status: Acute Assessment & Plan: a1c 9.3% needs to see Dr Millan endocrinology due to poor glucose control, discussed importance with wound healing Code(s): E11.65 - TYPE 2 DIABETES MELLITUS WITH HYPERGLYCEMIA (3) Chronic kidney disease (CKD) Current Visit: Yes Status: Acute Assessment & Plan: on dialysis Code(s): N18.9 - CHRONIC KIDNEY DISEASE, UNSPECIFIED Hospital Summary - Vitals & Intake/Output Vital Signs: Vital Signs Temperature 99.5 F 09/28/20 08:00 Pulse Rate 83 09/28/20 08:00 Respiratory Rate 18 09/28/20 08:00 Blood Pressure 130/59 09/28/20 08:00 O2 Sat by Pulse Oximetry 91 L 09/28/20 08:00 Intake & Output: Intake & Output 09/26/20 09/27/20 09/28/20 09/29/20 11:59 11:59 11:59 11:59 Intake Total 780 Balance 780 Weight 137.7 kg - Lab Result Diagrams: 09/27/20 16:10 09/27/20 16:10 Lab Results-Last 24 Hrs: Lab Results-Last 24 Hours 09/27/20 09/27/20 09/27/20 Range/Units 15:51 16:10 16:10 WBC 14.3 H (4.0-10.5) K/mm3 RBC 3.51 L (4.1-5.6) M/mm3 Hgb 10.6 L (12.5-18.0) gm/dl Hct 34.3 L (42-50) % MCV 97.7 (78-100) fl MCH 30.2 (26-32) pg MCHC 30.9 L (32-36) g/dl RDW 15.8 H (11.5-14.0) % Plt Count 331 (150-450) K/mm3 MPV 8.3 (7.5-11.0) fl Gran % 81.8 H (36.0-66.0) % Eos # (Auto) 0.28 (0-0.5) Absolute Lymphs (auto) 1.08 (1.0-4.6) Absolute Monos (auto) 1.20 (0.0-1.3) Lymphocytes % 7.5 L (24.0-44.0) % Monocytes % 8.4 (0.0-12.0) % Eosinophils % 2.0 (0.00-5.0) % Basophils % 0.3 (0.0-0.4) % Absolute Granulocytes 11.71 H (1.4-6.9) Basophils # 0.04 (0-0.4) ESR 129 H (0-15) mm/hr Sodium 132 L (137-145) mmol/L Potassium 5.1 (3.5-5.1) mmol/L Chloride 87 L (98-107) mmol/L Carbon Dioxide 31 H (22-30) mmol/L Anion Gap 18.7 H (5-15) MEQ/L BUN 32 H (9-20) mg/dL Creatinine 5.73 H (0.66-1.25) mg/dL Estimated GFR 11.2 ML/MIN Glucose 310 H (74-106) mg/dL POC Glucometer (74 to 106) mg/dL Hemoglobin A1c (4.5-6.0) % Calcium 8.7 (8.4-10.2) mg/dL Total Bilirubin 0.90 (0.2-1.3) mg/dL AST 29 (17-59) U/L ALT 28 (0-50) U/L Alkaline Phosphatase 126 (38-126) U/L Serum Total Protein 8.0 (6.3-8.2) g/dL Albumin 4.1 (3.5-5.0) g/dL SARS-CoV-2 (PCR) NEGATIVE (NEGATIVE) 09/27/20 09/27/20 09/27/20 Range/Units 16:33 16:50 20:57 WBC (4.0-10.5) K/mm3 RBC (4.1-5.6) M/mm3 Hgb (12.5-18.0) gm/dl Hct (42-50) % MCV (78-100) fl MCH (26-32) pg MCHC (32-36) g/dl RDW (11.5-14.0) % Plt Count (150-450) K/mm3 MPV (7.5-11.0) fl Gran % (36.0-66.0) % Eos # (Auto) (0-0.5) Absolute Lymphs (auto) (1.0-4.6) Absolute Monos (auto) (0.0-1.3) Lymphocytes % (24.0-44.0) % Monocytes % (0.0-12.0) % Eosinophils % (0.00-5.0) % Basophils % (0.0-0.4) % Absolute Granulocytes (1.4-6.9) Basophils # (0-0.4) ESR (0-15) mm/hr Sodium (137-145) mmol/L Potassium (3.5-5.1) mmol/L Chloride (98-107) mmol/L Carbon Dioxide (22-30) mmol/L Anion Gap (5-15) MEQ/L BUN (9-20) mg/dL Creatinine (0.66-1.25) mg/dL Estimated GFR ML/MIN Glucose (74-106) mg/dL POC Glucometer 268 H 318 H (74 to 106) mg/dL Hemoglobin A1c 9.37 H (4.5-6.0) % Calcium (8.4-10.2) mg/dL Total Bilirubin (0.2-1.3) mg/dL AST (17-59) U/L ALT (0-50) U/L Alkaline Phosphatase (38-126) U/L Serum Total Protein (6.3-8.2) g/dL Albumin (3.5-5.0) g/dL SARS-CoV-2 (PCR) (NEGATIVE) 09/28/20 09/28/20 Range/Units 07:27 11:31 WBC (4.0-10.5) K/mm3 RBC (4.1-5.6) M/mm3 Hgb (12.5-18.0) gm/dl Hct (42-50) % MCV (78-100) fl MCH (26-32) pg MCHC (32-36) g/dl RDW (11.5-14.0) % Plt Count (150-450) K/mm3 MPV (7.5-11.0) fl Gran % (36.0-66.0) % Eos # (Auto) (0-0.5) Absolute Lymphs (auto) (1.0-4.6) Absolute Monos (auto) (0.0-1.3) Lymphocytes % (24.0-44.0) % Monocytes % (0.0-12.0) % Eosinophils % (0.00-5.0) % Basophils % (0.0-0.4) % Absolute Granulocytes (1.4-6.9) Basophils # (0-0.4) ESR (0-15) mm/hr Sodium (137-145) mmol/L Potassium (3.5-5.1) mmol/L Chloride (98-107) mmol/L Carbon Dioxide (22-30) mmol/L Anion Gap (5-15) MEQ/L BUN (9-20) mg/dL Creatinine (0.66-1.25) mg/dL Estimated GFR ML/MIN Glucose (74-106) mg/dL POC Glucometer 174 H 245 H (74 to 106) mg/dL Hemoglobin A1c (4.5-6.0) % Calcium (8.4-10.2) mg/dL Total Bilirubin (0.2-1.3) mg/dL AST (17-59) U/L ALT (0-50) U/L Alkaline Phosphatase (38-126) U/L Serum Total Protein (6.3-8.2) g/dL Albumin (3.5-5.0) g/dL SARS-CoV-2 (PCR) (NEGATIVE) Micro Results-Entire Visit: Accuchecks Date 09/27/20 - Procedures and Test Procedures and Tests throughout Hospitalization: Therapy Orders & Screens 09/27/20 15:45 OT Eval and Treat (MD Order) ROUTINE Comment: Consulting Provider: Physician Instructions: Reason For Exam: PT Eval & Treat ( Order) ONCE Reason for Eval:: WOUND CARE Diagnosis: DIABETIC FOOT ULCER - Discharge Disposition: Home, Self-Care Condition: Stable Prescriptions: Continue Gabapentin 600 mg PO BID Clonidine HCl 0.1 mg PO BID Labetalol HCl [Trandate] 200 mg PO BID Insulin Lispro [Humalog] 0 unit SQ UD PANTOPRAZOLE 40 mg Tablet [Protonix 40MG Tablet] 40 mg PO DAILY Lisinopril 40 mg PO BID Insulin Detemir [Levemir] 60 unit SQ HS Calcitriol 0.5 mcg PO BID Follow up with: CARMELINA GHORTA MD [Primary Care Provider] -
[2020-09-28 13:48] VITALS: BP 123/57; PULSE 86; O2SAT 90
--- NOTE | 2020-09-28 14:15 | OP ---
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 PROCEDURE: Incision and drainage with debridement to level of tendon and bone, pulse lavage and application of antibiotic beads left ankle. SURGEON: Huan Miller DPM. HEEL SHAPER: None. HEMOSTASIS: Pressure dressing. ESTIMATED BLOOD LOSS: Less than 10 cc. MATERIALS: 1,000 ml of Bactisure. Calcigen S antibiotic beads with 160 mg of tobramycin. INJECTABLES: 20 cc of 1:1 mixture of 1% lidocaine plain and 0.5% bupivacaine plain injected in an ankle block-type fashion. INDICATION FOR SURGERY: Colin is a very pleasant 50 year-old male who was seen multiple times in my office over the course of the last several months. The patient did have a below knee amputation to right lower extremity secondary to diabetes and Charcot. On the left he is developing an ulceration to the anterior aspect of the left ankle. At certain points in his treatment he did have exposed tendon which the patient was resistant to and followed with surgical intervention. At this time the patient presents with a significant amount of his tendon exposed as well as infection and the patient is willing to proceed with surgical intervention at this time as an effort for limb salvage. The patient understands all risks, benefits and complications of surgical intervention at this time including but not limited to recurrent infection, possibility of need for repeat intervention, continued infection and possible loss of limb and loss of life as a result of this infection. The patient understands this and wishes to proceed at this time. DESCRIPTION OF PROCEDURE AND FINDINGS: The patient was brought into the OR and left on the cart in supine position at this time. A Betadine prep was applied to the left lower extremity and the patient was prepped and draped in usual sterile fashion. At this time a 20 cc block of 1:1 mixture of 0.5% bupivacaine and 1% lidocaine was injected in ankle block-type fashion. At this time attention was directed to the wound where all necrotic, devitalized and infected tissue was debrided utilizing a combination of rongeur, curettes and sharp dissection. Careful dissection was made to insure that there were no neurovascular injury in this area with particular interest to the deep peroneal nerve and the dorsalis pedis artery. At this time adequate incision and debridement was maintained the tendon sheath was incised and deemed to be adequate for healing and free of any infection tracking proximally and distally. The bone over the dorsal aspect of the foot medial and lateral to the EHL tendon appeard devitalized and necrotic therefore debridement took plate utilizing a currett to the surface of the bone. At this time 3 liters of sterile saline were utilized in a pulse lavage-type fashion in order to eliminate any of the bacterial biorhythm. A 1,000 ml of Bactisure was then utilized to cleanse the wound and once again sterilize cleansed with 1 liter of sterile saline. At this time the Calcigen S antibiotic beads were applied with 160 mg of tobramycin to the dorsal aspect of the wound secured with Adaptic, 4x4, Kerlix, a 4 inch and 6 inch MATHEW. The patient handled the procedure without complication and was returned to the floor. Orders as indicated in the patients chart.
== END 2020-09-28 13:40 | disposition home or self-care (01) ==
LOC: MED SURG 15:39
PROVIDERS: ADMIT Family Medicine; ATTEND Family Medicine
DX: E11.621 Type 2 diabetes mellitus with foot ulcer (principal); E11.610 Type 2 diabetes mellitus with diabetic neuropathic arthropathy; Z89.511 Acquired absence of right leg below knee; Z79.899 Other long term (current) drug therapy; E11.65 Type 2 diabetes mellitus with hyperglycemia; E11.22 Type 2 diabetes mellitus with diabetic chronic kidney disease; I12.9 Hypertensive chronic kidney disease with stage 1 through stage 4 chronic kidney disease, or unspecified chronic kidney disease; N18.5 Chronic kidney disease, stage 5; Z20.828 Contact with and (suspected) exposure to other viral communicable diseases
CPT/HCPCS: 11044; 20700; 36415; 80053; 82947; 83036; 85025; 85652; 86141; 97161; G0378; U0003; 88304; J1817; J3260; A9270-GY; J3370

== ENCOUNTER 2021-07-03 13:47 | Emergency (ER) | payer MEDICARE, BC ==
[2021-07-03] MEDS ORDERED: XYLOCAINE 1% HCL 20 ML MDV IJ ONE (13:48)
--- NOTE | 2021-07-03 13:49 | ERPHSYRPT ---
- History of Present Illness Time Seen by Provider: 07/03/21 13:49 Source: patient, EMS Exam Limitations: no limitations Physician History: This is a 51-year-old white male patient of Dr. Whaley who has renal failure and is on Thursday dialysis. He also has diabetes, hypertension, obesity and is bilateral below the knee amputee. Patient was seen by Dr. Whaley 2 days ago and was treated for seasonal allergies and possible bacterial bronchitis and started on amoxicillin. He states that he is not improved. He was coughing during dialysis today and they brought him over to the emergency department for further evaluation. He has had a productive cough of yellowish- brown sputum. He has not had a fever. He denies chest pain. He has mild shortness of breath and he has no abdominal pain. He denies nausea vomiting or diarrhea. Timing/Duration: day(s) (2) Activities at Onset: none Severity of Dyspnea-Max: mild Severity of Dyspnea-Current: mild Possible Cause: occasional episodes Modifying Factors: Improves With: activity, coughing Associated Symptoms: cough Allergies/Adverse Reactions: No Known Drug Allergies Allergy (Verified 07/03/21 13:51) Home Medications: Gabapentin 600 mg PO BID 07/07/18 [History] cloNIDine HCL [Clonidine HCl] 0.1 mg PO BID 07/07/18 [History] Insulin Lispro [Humalog] 0 unit SQ UD 12/29/18 [History] Labetalol HCl [Trandate] 200 mg PO BID 12/29/18 [History] Insulin Detemir [Levemir] 60 unit SQ HS 09/27/20 [History] PANTOPRAZOLE 40 mg Tablet [Protonix 40MG Tablet] 40 mg PO DAILY 09/27/20 [History] calcitrioL [Calcitriol] 0.5 mcg PO BID 09/27/20 [History] lisinopriL [Lisinopril] 40 mg PO BID 09/27/20 [History] Hx Tetanus, Diphtheria Vaccination/Date Given: Yes Hx Influenza Vaccination/Date Given: Yes Hx Pneumococcal Vaccination/Date Given: No Travel Risk - International Travel Have you traveled outside of the country in past 3 weeks: No - Coronavirus Screening Are you exhibiting any of the following symptoms?: No Close contact with a COVID-19 positive Pt in past 14-21 Days: No - Vaccine Status Have you recieved a Covid-19 vaccination: Yes Finish Rolls Operator: Moderna - Vaccination Dates Date of 2cond Vaccination (if applicable): June 2020 - Review of Systems Constitutional: No Symptoms Eyes: No Symptoms Ears, Nose, & Throat: No Symptoms Respiratory: Cough Cardiac: No Symptoms Abdominal/Gastrointestinal: No Symptoms Genitourinary Symptoms: No Symptoms Musculoskeletal: No Symptoms Skin: No Symptoms Neurological: No Symptoms Psychological: No Symptoms Endocrine: No Symptoms Hematologic/Lymphatic: No Symptoms Immunological/Allergic: No Symptoms All Other Systems: Reviewed and Negative - Past Medical History Pertinent Past Medical History: Yes Neurological History: Peripheral Neuropathy ENT History: No Pertinent History Cardiac History: Hypertension Respiratory History: No Pertinent History Endocrine Medical History: Diabetes Type II, Other Musculoskeletal History: Other GI Medical History: No Pertinent History History: Dialysis, Renal Disease, Other Psycho-Social History: No Pertinent History Male Reproductive Disorders: No Pertinent History Other Medical History: CKD STAGE 5 WITH DIALYSIS , R BKA - Past Surgical History Past Surgical History: Yes Neuro Surgical History: No Pertinent History Cardiac: No Pertinent History Respiratory: No Pertinent History Gastrointestinal: No Pertinent History Genitourinary: No Pertinent History Musculoskeletal: Amputation Male Surgical History: No Pertinent History Other Surgical History: permacath placed right chest (removed). july 2018 right below the knee amputation. AV fistula Left upper arm. L little toe removed 5 yr ago - Social History Smoking Status: Never smoker Exposure to second hand smoke: Yes Alcohol Use: None Drug Use: none Patient Lives Alone: No Significant Family History: no pertinent family hx - Nursing Vital Signs Nursing Vital Signs: Initial Vital Signs Temperature 97.8 F 07/03/21 13:52 Pulse Rate 70 07/03/21 13:52 Respiratory Rate 18 07/03/21 13:52 Blood Pressure 119/64 07/03/21 13:52 O2 Sat by Pulse Oximetry 97 07/03/21 13:52 Pain Scale Pain Intensity 5 - Physical Exam General Appearance: no apparent distress, alert, anxiety Eye Exam: PERRL/EOMI, eyes nml inspection Ears, Nose, Throat Exam: hearing grossly normal, normal ENT inspection Neck Exam: normal inspection, non-tender, supple, full range of motion Respiratory Exam: normal breath sounds, lungs clear, airway intact, No chest tenderness, No respiratory distress Cardiovascular/Chest Exam: normal heart sounds, regular rate/rhythm Abdominal/Gastrointestinal Exam: soft, normal bowel sounds, No tenderness Rectal Exam: not done Extremity Exam: non-tender (Patient is bilateral below the knee amputee), normal range of motion, normal inspection Neurologic Exam: alert, oriented x 3, cooperative, securities consultant II-XII nml as tested, normal mood/affect Skin Exam: normal color, warm, dry Lymphatic Exam: No adenopathy SpO2 Interpretation: normal O2 Delivery: Room Air - Course Nursing assessment & vital signs reviewed: Yes Ordered Tests: Active Orders 24 hr Category Date Time Status Pulse Oximetry (ED) STAT Care 07/03/21 14:39 Active CHEST 1 VIEW (PORTABLE) Stat Exams 07/03/21 14:40 Completed Medication Summary Generic Name Dose Route Start Last Admin Trade Name Freq PRN Reason Stop Dose Admin Ceftriaxone Sodium/Dextrose 1 g in 50 mls @ 100 mls/hr 07/03/21 15:30 07/03/21 15:36 Rocephin 1 Gm-D5w 50 Ml Bag IV 07/03/21 15:59 100 mls/hr STAT STA 100 mls/hr Administration Discontinued Medications Generic Name Dose Route Start Last Admin Trade Name Freq PRN Reason Stop Dose Admin Hydrocodone Bitart/Acetaminophen 10 ml 07/03/21 14:41 07/03/21 14:57 Hydrocodone/Acetaminophen 5 Ml Udcup PO 07/03/21 14:42 10 ml STAT STA Administration Hydrocodone Bitart/Acetaminophen Confirm 07/03/21 14:56 Hydrocodone/Acetaminophen 5 Ml Udcup Administered 07/03/21 14:57 Dose 10 ml .ROUTE .STK-MED ONE Methylprednisolone Sodium 0 mg 07/03/21 15:31 07/03/21 15:35 Succinate 125 mg/ Sterile IV 07/03/21 15:32 125 mg Water 2 ml STAT ONE Administration Ceftriaxone Sodium/Dextrose Confirm 07/03/21 15:34 Rocephin 1 Gm-D5w 50 Ml Bag Administered 07/03/21 15:35 Dose 1 g in 50 mls @ ud IV .STK-MED ONE Methylprednisolone Sodium Succinate Confirm 07/03/21 15:34 Methylprednis Sod Succ 125 Mg/2 Ml Vial Administered 07/03/21 15:35 Dose 125 mg .ROUTE .STK-MED ONE Sterile Water Confirm 07/03/21 15:34 Water For Injection,Sterile 10 Ml Vial Administered 07/03/21 15:35 Dose 10 ml IJ .STK-MED ONE Lab/Rad Data: Laboratory Results 07/03/21 07/03/21 Range/Units 14:48 14:48 Influenza Type A Ag NEGATIVE (NEGATIVE) Influenza Type B Ag NEGATIVE (NEGATIVE) RSV (PCR) NEGATIVE (Negative) SARS-CoV-2 (PCR) NEGATIVE (NEGATIVE) Group A Strep Antibody NOT DETECTED (NEGATIVE) - Progress Progress: improved, re-examined Air Movement: good Progress Note: 07/03/21 15:32 Chest x-ray shows new hazy left base opacity Antibiotics given: Yes Counseled pt/family regarding: lab results, diagnosis, need for follow-up, rad r esults - Departure Departure Disposition: Home Clinical Impression: Left pulmonary infiltrate on CXR Condition: Stable Critical Care Time: No Referrals: CARMELINA GHOTRA MD [COURTESY STAFF] - Follow up/PCP as directed Additional Instructions: Drink plenty of fluids. Take your medication as prescribed. Follow-up with your primary care physician for further management. Prescriptions: Hydrocodone/Acetaminophen [Hydrocodone-Acetamn 7.5-325/15] 10 ml PO Q8H PRN PRN #120 ml MDD 30 ml PRN Reason: Cough Albuterol 8 gm Mdi Hfa [Ventolin Hfa MDI] 8 gm IH Q4H #1 unit Azithromycin 250 mg [Zithromax 250 MG TABLET] 250 mg PO ZPACK #6 tablet
[2021-07-03 13:59] VITALS: PULSE 70
[2021-07-03] MEDS ORDERED: HYDROCODONE-ACETAMIN 2.5-108/5 ML SOLUTION PO STA (14:41)
[2021-07-03] MEDS ORDERED: HYDROCODONE-ACETAMIN 2.5-108/5 ML SOLUTION ONE (14:56)
--- NOTE | 2021-07-03 15:04 | XRAY ---
Indication: Cough. Comparison: October 22, 2018. Portable chest demonstrates new hazy left base interstitial alveolar opacities without consolidation/large effusion. Remaining heart and right lung unremarkable. Bony thorax intact.
[2021-07-03 15:09] VITALS: O2SAT 96
[2021-07-03 15:30] LABS: INFLUENZA A NEGATIVE (NEGATIVE); INFLUENZA B NEGATIVE (NEGATIVE); RESPIRATORY SYNCTIAL VIRUS NEGATIVE (Negative); SARS-CoV-2 Xpert Express NEGATIVE (NEGATIVE)
[2021-07-03] MEDS ORDERED: solu-MEDROL 125 MG, Sterile H2O 10 ml 2 ML IV ONE ×2 (15:31)
[2021-07-03] MEDS ORDERED: solu-MEDROL ONE (15:34)
[2021-07-03] MEDS ORDERED: ROCEPHIN 1 Gm-D5w 50 ml Bag** 0 G/0 ML IVPB IV ONE (15:34)
[2021-07-03] MEDS ORDERED: Sterile H2O 10 ml IJ ONE (15:34)
[2021-07-03] MEDS: ROCEPHIN 1 Gm-D5w 50 ml Bag** 1 G/50 ML IVPB IV STA ×2 (15:36→15:59)
[2021-07-03] MEDS ORDERED: Rocephin 1000 MG INJ ONE (15:46)
[2021-07-03] MEDS ORDERED: Rocephin 1000 MG INJ IM ONE (15:57)
[2021-07-03 16:02] VITALS: BP 167/85
== END 2021-07-03 16:10 | disposition home or self-care (01) ==
LOC: ED 13:47
DX: R91.8 Other nonspecific abnormal finding of lung field (principal); R05.9 Cough, unspecified; R06.02 Shortness of breath; E11.22 Type 2 diabetes mellitus with diabetic chronic kidney disease; I12.0 Hypertensive chronic kidney disease with stage 5 chronic kidney disease or end stage renal disease; N18.5 Chronic kidney disease, stage 5; Z99.2 Dependence on renal dialysis; Z79.4 Long term (current) use of insulin; E11.42 Type 2 diabetes mellitus with diabetic polyneuropathy; Z79.899 Other long term (current) drug therapy; Z79.891 Long term (current) use of opiate analgesic
CPT/HCPCS: 0241U; 71045; 87651; 94760; 96372; 96374; 99284; J0696; J2930; A9270-GY

== ENCOUNTER 2023-01-19 11:57 | Emergency (ER) | payer MEDICARE ==
--- NOTE | 2023-01-19 12:02 | ERPHSYRPT ---
- History of Present Illness Time Seen by Provider: 01/19/23 12:02 Source: patient Exam Limitations: no limitations Physician History: This is a morbidly obese 52-year-old white male patient of Dr. Feliciano who fell out of bed 4 days ago onto his right chest. Patient states that hurts to take a deep breath. He has had pain in the last 4 days but it is worsening. There is some bruising present as well. Patient has bilateral below the knee amputations, he is diabetic, he has phantom pain in both his limbs, he has a history of hypertension and chronic renal failure with Thursday dialysis. Because of the pain in his right lateral chest, the patient left dialysis early today. Patient wears 3 L of oxygen via nasal cannula Occurred: days ago (4) Reason for Fall: fell from height (Fell out of bed) Injuries/Pain Location: chest (Right lateral) Loss of Consciousness: no loss of consciousness Quality: sharpness, stabbing Severity of Pain-Max: moderate Severity of Pain-Current: moderate Modifying Factors: Improves With: other (Deep breath hurts) Associated Symptoms (Fall): chest pain (Right lateral rib pain) Allergies/Adverse Reactions: No Known Drug Allergies Allergy (Verified 01/19/23 12:13) Home Medications: Gabapentin 600 mg PO BID 07/07/18 [History] cloNIDine HCL [Clonidine HCl] 0.1 mg PO BID 07/07/18 [History] Insulin Lispro [Humalog] 0 unit SQ UD 12/29/18 [History] Labetalol HCl [Trandate] 200 mg PO BID 12/29/18 [History] Insulin Detemir [Levemir] 60 unit SQ HS 09/27/20 [History] PANTOPRAZOLE 40 mg Tablet [Protonix 40MG Tablet] 40 mg PO DAILY 09/27/20 [History] calcitrioL [Calcitriol] 0.5 mcg PO BID 09/27/20 [History] lisinopriL [Lisinopril] 40 mg PO BID 09/27/20 [History] Hx Tetanus, Diphtheria Vaccination/Date Given: Yes Hx Influenza Vaccination/Date Given: Yes Hx Pneumococcal Vaccination/Date Given: No Travel Risk - International Travel Have you traveled outside of the country in past 3 weeks: No - Coronavirus Screening Are you exhibiting any of the following symptoms?: No Close contact with a COVID-19 positive Pt in past 14-21 Days: No - Vaccine Status Have you recieved a Covid-19 vaccination: Yes Case Management Director: Moderna - Vaccination Dates Date of 2cond Vaccination (if applicable): June 2020 - Review of Systems Constitutional: No Symptoms Eyes: No Symptoms Ears, Nose, & Throat: No Symptoms Respiratory: No Symptoms Cardiac: No Symptoms Abdominal/Gastrointestinal: No Symptoms Genitourinary Symptoms: No Symptoms Musculoskeletal: Fall, Injury (Right lateral ribs) Skin: No Symptoms Neurological: No Symptoms Psychological: No Symptoms Endocrine: No Symptoms Hematologic/Lymphatic: No Symptoms Immunological/Allergic: No Symptoms All Other Systems: Reviewed and Negative - Past Medical History Pertinent Past Medical History: Yes Neurological History: Peripheral Neuropathy, Stroke ENT History: No Pertinent History Cardiac History: Hypertension Respiratory History: Asthma Endocrine Medical History: Diabetes Type II, Hypothyroidism Musculoskeletal History: Arthritis GI Medical History: No Pertinent History History: Dialysis, Renal Disease, Other Psycho-Social History: No Pertinent History Male Reproductive Disorders: No Pertinent History Other Medical History: DIALYSIS 3X/WEEK (-- IN THE MORNINGS 8AM-12:30PM). BILATERAL BKA WITH PROSTHESIS - Past Surgical History Past Surgical History: Yes Neuro Surgical History: No Pertinent History Cardiac: No Pertinent History Respiratory: No Pertinent History Gastrointestinal: No Pertinent History Genitourinary: No Pertinent History Musculoskeletal: Amputation Male Surgical History: No Pertinent History Other Surgical History: permacath placed right chest (removed). july 2018 right below the knee amputation. AV fistula Left upper arm. L little toe removed 5 yr ago - Social History Smoking Status: Never smoker Exposure to second hand smoke: Yes Alcohol Use: None Drug Use: none Patient Lives Alone: No Significant Family History: no pertinent family hx - Nursing Vital Signs Nursing Vital Signs: Initial Vital Signs Temperature 97.9 F 01/19/23 12:04 Pulse Rate 66 01/19/23 12:04 Respiratory Rate 17 01/19/23 12:04 Blood Pressure 146/56 01/19/23 12:04 O2 Sat by Pulse Oximetry 89 L 01/19/23 12:04 Pain Scale Pain Intensity 10 - Mackenzie Coma Score Best Eye Response (Mackenzie): (4) open spontaneously Best Verbal Response (Mackenzie): (5) oriented Best Motor Response (Mackenzie): (6) obeys commands [place] Total: 15 - Physical Exam General Appearance: no apparent distress, alert, anxiety, obese Head Injury: no evidence of injury Eye Exam: PERRL/EOMI, eyes nml inspection ENT Exam: airway nml, nml ext.inspection, No dental injury Neck Exam: supple, trachea midline, full range of motion, normal alignment Respiratory/Chest Exam: ecchymosis (Skin overlying right lateral ribs), rib tenderness (Right lateral ribs), No crepitus Cardiovascular Exam: normal heart sounds, regular rate/rhythm Gastrointestinal Exam: No tenderness Rectal Exam: not done Back Exam: normal inspection, normal range of motion, No CVA tenderness Extremity Exam: other (Patient with bilateral below the knee amputations) Neurologic Exam: alert, oriented x 3, cooperative, vehicle operator II-XII nml as tested, normal mood/affect, nml cerebellar function, nml station & gait, sensation nml Skin Exam: normal color, warm, dry SpO2 Interpretation: normal O2 Delivery: Room Air - Course Nursing assessment & vital signs reviewed: Yes Ordered Tests: Active Orders 24 hr Category Date Time Status CHEST 1 VIEW (PORTABLE) Stat Exams 01/19/23 12:22 Taken RIBS UNILATERAL Stat Exams 01/19/23 12:22 Completed Medication Summary Discontinued Medications Generic Name Dose Route Start Last Admin Trade Name Freq PRN Reason Stop Dose Admin Orphenadrine Citrate 100 mg 01/19/23 12:50 01/19/23 12:53 Orphenadrine Citrate 100 Mg Er Tab PO 01/19/23 12:51 100 mg STAT ONE Administration Orphenadrine Citrate Confirm 01/19/23 12:52 Orphenadrine Citrate 100 Mg Er Tab Administered 01/19/23 12:53 Dose 100 mg PO .STK-MED ONE Oxycodone/Acetaminophen 1 tab 01/19/23 12:50 01/19/23 12:53 Oxycodone Hcl/Apap 5 Mg/325 Mg Tablet PO 01/19/23 12:51 1 tab STAT STA Administration Oxycodone/Acetaminophen Confirm 01/19/23 12:52 Oxycodone Hcl/Apap 5 Mg/325 Mg Tablet Administered 01/19/23 12:53 Dose 1 tab .ROUTE .STK-MED ONE - Progress Progress: improved, pain not gone completely, re-examined Progress Note: 01/19/23 12:47 Patient's medical issue is 1 of low complexity. The level of complexity in the work-up performed is based on review of the patient's past medical history, review of the patient's medication list, review the patient's drug allergy list, history of present illness and physical findings on examination. This patient's work-up includes chest x-ray and x-ray of right ribs. 01/19/23 13:08 Chest x-ray was interpreted by the radiologist. Impression states no acute cardiopulmonary process. Bony thorax intact. I reviewed the impression. Counseled pt/family regarding: diagnosis, need for follow-up, rad results Medical Desision Making - Independent Historian Additional History obtained from: Spouse - Diagnostic Testing Diagnostic test were ordered, analyzed, and reviewed by me: Yes Radiological Interpretation: Reviewed by me, Teleradiologist Report - Risk of complications The pt has a mod risk of morbidity or mortality based on: Need for prescription drug management - Departure Departure Disposition: Home Clinical Impression: Rib contusion Condition: Stable Critical Care Time: No Referrals: DEVON FELICIANO MD [Primary Care Provider] - Follow up/PCP as directed Additional Instructions: Take your medication as prescribed. Ice pack to the area 2-3 times a day for the next 48 hours. Follow-up with your primary care provider today to make arranges for follow-up appointment in the next 2 to 3 days for further evaluation management as well as pain control. Prescriptions: Oxycodone HCl/Acetaminophen [Percocet 5-325 mg Tablet] 1 each PO Q8H PRN PRN #6 tablet MDD 3 PRN Reason: Moderate To Severe Pain
[2023-01-19 12:30] VITALS: PULSE 66; TEMP 97.9
[2023-01-19] MEDS ORDERED: Norflex 100 MG Tablet PO ONE ×2 (12:50→12:52)
[2023-01-19] MEDS ORDERED: PERCOCET TABLET 5/325MG PO STA (12:50)
[2023-01-19] MEDS ORDERED: PERCOCET TABLET 5/325MG ONE (12:52)
--- NOTE | 2023-01-19 13:07 | XRAY ---
Indication: Pain following fall 4 days ago. Comparison: None 2 portable views right ribs demonstrate tiny right lung base calcified granuloma and mild multilevel thoracic degenerative spondylosis. No other bony, articular, or soft tissue abnormalities.
--- NOTE | 2023-01-19 13:09 | XRAY ---
Indication: Right axilla/rib pain following fall 4 days ago. Cough. Comparison: July 03, 2021 Portable chest less inflated without focal infiltrate, consolidation, large effusion, or pneumothorax. Heart not enlarged. Bony thorax intact. Impression: Nonacute chest.
[2023-01-19 13:16] VITALS: BP 142/89; RESP 19; O2SAT 92
== END 2023-01-19 13:29 | disposition home or self-care (01) ==
LOC: ED 11:57
DX: S20.211A Contusion of right front wall of thorax, initial encounter (principal); W06.XXXA Fall from bed, initial encounter; Y92.003 Bedroom of unspecified non-institutional (private) residence as the place of occurrence of the external cause; I12.0 Hypertensive chronic kidney disease with stage 5 chronic kidney disease or end stage renal disease; E11.22 Type 2 diabetes mellitus with diabetic chronic kidney disease; N18.6 End stage renal disease; E11.42 Type 2 diabetes mellitus with diabetic polyneuropathy; Z79.4 Long term (current) use of insulin; Z79.891 Long term (current) use of opiate analgesic; Z79.899 Other long term (current) drug therapy; Z99.2 Dependence on renal dialysis; Z99.81 Dependence on supplemental oxygen; Z89.512 Acquired absence of left leg below knee; Z89.511 Acquired absence of right leg below knee
CPT/HCPCS: 71045; 71100; 99283; A9270-GY

== ENCOUNTER 2024-01-26 18:34 | Emergency (ER) | payer MEDICARE ==
[2024-01-26] MEDS ORDERED: Amidate 20 MG/10 ML IV ONE (18:35)
[2024-01-26] MEDS ORDERED: VERSED 5 MG/5 ML IV ONE (18:35)
--- NOTE | 2024-01-26 18:57 | ERPHSYRPT ---
- History of Present Illness Time Seen by Provider: 01/26/24 18:56 Source: patient Exam Limitations: no limitations Physician History: This is an overweight 53-year-old white male patient of Dr. Garcia who presents to the emergency department secondary to the patient falling out of his power chair while walking his dog. The dog leash got caught in the wheel and pulled him out of the chair onto his right shoulder. The patient underwent an x-ray which showed an anterior-inferior right shoulder dislocation. The patient has no complaints of head or neck injury or any other pain complaints or injuries. Patient does have pain in the right shoulder area. Patient has a history of hypertension, renal failure on Thursday dialysis, cardiac stent on Plavix, hyperlipidemia, peripheral neuropathy, diabetes, hypothyroidism, CVA, bilateral below the knee amputations with bilateral prostheses. Occurred: just prior to arrival Method of Injury: fell Quality: constant, aching Severity of Pain-Max: moderate Severity of Pain-Current: moderate Extremities Pain Location: shoulder: right Modifying Factors: Improves With: movement Associated Symptoms: none Allergies/Adverse Reactions: No Known Drug Allergies Allergy (Verified 01/26/24 18:55) Home Medications: Gabapentin 300 mg PO BID 07/07/18 [History] Atorvastatin Calcium [Lipitor 40Mg] 40 mg PO DAILY 05/07/23 [History] Bupropion HCl Xl 150 mg [Wellbutrin XL 150 MG] 150 mg PO DAILY 05/07/23 [History] Clopidogrel Bisulfate [Clopidogrel] 75 mg PO DAILY 05/07/23 [History] Duloxetine HCl 30 mg [Cymbalta 30 MG Capsule] 60 mg PO DAILY 05/07/23 [History] Fexofenadine/Pseudoephedrine [Fexofenadine-Pse ER 180-240 Tb] 1 each PO DAILY 05/07/23 [History] Fluticasone/Umeclidin/Vilanter [Trelegy Ellipta 100-62.5-25] 1 each IH DAILY 05/07/23 [History] HydrALAzine HCL 25 MG TAB [Apresoline 25 MG TABLET] 50 mg PO DAILY 05/07/23 [History] Levothyroxine Sodium 50 Mcg [Synthroid 50 Mcg] 50 mcg PO DAILY 05/07/23 [History] Metoprolol Tartrate 50 mg [Lopressor 50 MG] 50 mg PO DAILY 05/07/23 [History] Sucroferric Oxyhydroxide [Velphoro] 500 mg PO DAILY 05/07/23 [History] Hx Tetanus, Diphtheria Vaccination/Date Given: Yes Hx Influenza Vaccination/Date Given: Yes Hx Pneumococcal Vaccination/Date Given: No Travel Risk - International Travel Have you traveled outside of the country in past 3 weeks: No - Emerging Infectious Disease Are you exhibiting symptoms associated with any current EIDs: No - Review of Systems Constitutional: No Symptoms Eyes: No Symptoms Ears, Nose, & Throat: No Symptoms Respiratory: No Symptoms Cardiac: No Symptoms Abdominal/Gastrointestinal: No Symptoms Genitourinary Symptoms: No Symptoms Musculoskeletal: Fall, Injury (Right shoulder) Skin: No Symptoms Neurological: No Symptoms Psychological: No Symptoms Endocrine: No Symptoms Hematologic/Lymphatic: No Symptoms Immunological/Allergic: No Symptoms All Other Systems: Reviewed and Negative - Past Medical History Pertinent Past Medical History: Yes Neurological History: Peripheral Neuropathy, Stroke ENT History: No Pertinent History Cardiac History: Hypertension Respiratory History: Asthma Endocrine Medical History: Diabetes Type II, Hypothyroidism Musculoskeletal History: Arthritis GI Medical History: No Pertinent History History: Dialysis, Renal Disease, Other Psycho-Social History: No Pertinent History Male Reproductive Disorders: No Pertinent History Other Medical History: DIALYSIS 3X/WEEK (-- IN THE MORNINGS 8AM-12:30PM). BILATERAL BKA WITH PROSTHESIS - Past Surgical History Past Surgical History: Yes Neuro Surgical History: No Pertinent History Cardiac: Cardiac Stent Respiratory: No Pertinent History Gastrointestinal: No Pertinent History Genitourinary: No Pertinent History Musculoskeletal: Amputation Male Surgical History: No Pertinent History Other Surgical History: permacath placed right chest (removed). july 2018 right below the knee amputation. AV fistula Left upper arm. L little toe removed 5 yr ago Significant Family History: no pertinent family hx - Social History Smoking Status: Never smoker Exposure to second hand smoke: Yes Alcohol Use: None Drug Use: none Patient Lives Alone: No - Nursing Vital Signs Nursing Vital Signs: Initial Vital Signs Temperature 97.8 F 01/26/24 18:55 Pulse Rate 62 01/26/24 18:55 Respiratory Rate 20 01/26/24 18:55 Blood Pressure 154/63 01/26/24 18:55 O2 Sat by Pulse Oximetry 96 01/26/24 18:55 Pain Scale Pain Intensity 9 - Physical Exam General Appearance: mild distress, alert, anxiety, obese Eyes, Ears, Nose, Throat Exam: normal ENT inspection, moist mucous membranes Neck Exam: normal inspection, non-tender, supple, full range of motion Cardiovascular/Respiratory Exam: chest non-tender, normal breath sounds, regular rate/rhythm, heart sounds normal, no respiratory distress Abdominal Exam: non-tender Back Exam: normal inspection, normal range of motion, No CVA tenderness Shoulder Exam: bone tenderness, limited ROM, soft tissue tenderness, No deformity Elbow/Forearm Exam: normal inspection, non-tender, no evidence of injury, normal ROM Wrist Exam: normal inspection, non-tender, no evidence of injury, normal ROM Hand Exam: normal inspection, non-tender, no evidence of injury, normal ROM Neuro/Tendon Exam: normal sensation, normal motor functions, normal tendon functions Mental Status Exam: alert, oriented x 3, cooperative Skin Exam: normal color, warm, dry SpO2 Interpretation: normal O2 Delivery: Room Air Procedures - Joint Reduction Time of Procedure: 19:50 Timeout: Performed Joint Reduction Site: Right, shoulder Conscious Sedation: Yes Reduction Attempts: 2 Pre-Procedure Neurovascular Exam: neurovascular intact, well perfused Post Procedure Neurovascular Exam: neurovascular intact, unchanged from pre-exam Post Joint Reduction Film: no fracture seen - Course Nursing assessment & vital signs reviewed: Yes Ordered Tests: Active Orders 24 hr Category Date Time Status SHOULDER Stat Exams 01/26/24 19:54 Taken Medication Summary Discontinued Medications Generic Name Dose Route Start Last Admin Trade Name Quirino PRN Reason Stop Dose Admin Hydromorphone HCl Confirm 01/26/24 19:26 Hydromorphone 1 Mg/1ml Inj Administered 01/26/24 19:27 Dose 1 mg .ROUTE .STK-MED ONE Ondansetron HCl Confirm 01/26/24 19:26 Ondansetron Hcl 4 Mg/2 Ml Vial Administered 01/26/24 19:27 Dose 4 mg .ROUTE .STK-MED ONE - Progress Progress: unchanged Progress Note: 01/26/24 20:18 My medical decision making and the assignment of low to moderate complexity of t his patient's medical issue today is based on review of the patient's past medical history, review the patient's medication list, reviewed patient drug allergy list, history present illness and physical findings on examination. The patient presents with an x-ray of his right shoulder that was performed just prior to his visiting the emergency department. The x-ray was interpreted by the radiologist which stated that there is an anterior inferior dislocation of the patient's right shoulder without a fracture present. Under conscious sedation with a total of 20 mg of intravenous etomidate, 1 mg total of intravenous Dilaudid, 4 mg of Zofran and 5 mg of intravenous Versed, we attempted on 2 occasions to reduce this right shoulder dislocation. However, I was unsuccessful. Patient is stable post conscious sedation. We placed the patient's right shoulder in a sling. I contacted our orthopedic surgeon on-call, Dr. Santana. I discussed with him the patient history, the presenting complaint, the patient's medical history, the findings on the x-ray and I discussed the unsuccessful 2 attempts I made to reduce this patient's right shoulder dislocation. Dr. Santana, although he stated would only take a couple minutes to do, his concern was the patient has multiple medical problems and if the patient is requiring full general anesthesia to reduce this shoulder dislocation, we do not have the ability to perform dialysis or if the patient suddenly worsens clinically from the medical standpoint we do not have the specialist to intervene. Therefore, after obtaining permission from the patient's spouse to call other hospitals starting with [facility], we have placed a call to their facility. 01/26/24 20:27 I spoke with Tatyana at the transfer center for [facility] in [facility]. She discussed the case with Dr. Sneed who is the orthopedic surgeon on-call [facility]. He is fine with the patient being transferred. The patient will be transferred to the emergency department. I will be speaking to Dr. Saran Mcgill. He is the emergency physician on-call at this time. They will call us back when he is available to discuss this case for transfer 01/26/24 21:07 The emergency physician at [facility], Dr. Saran Mcgill, accepts the patient in transfer. The transfer center called back and relayed message to nurse Jessica who relayed the message to me. Counseled pt/family regarding: diagnosis, rad results Medical Desision Making - Independent Historian Additional History obtained from: Spouse - Diagnostic Testing Diagnostic test were ordered, analyzed, and reviewed by me: Yes Radiological Interpretation: Interpreted by me - Risk of complications The pt has a high risk of morbidity or mortality based on: Decision regarding hospitilization or escalation of hosp level of care - Departure Departure Disposition: Transfer Clinical Impression: Dislocation of right shoulder joint Condition: Stable Critical Care Time: No Referrals: TEODORA GARCIA DO [Primary Care Provider] - Follow up/PCP as directed
[2024-01-26 19:03] VITALS: TEMP 97.8
[2024-01-26] MEDS ORDERED: Zofran 4 MG/2 ML VIAL ONE ×2 (19:26→21:58)
[2024-01-26] MEDS ORDERED: Hydromorphone 1 mg/ml Injection ONE (19:26)
[2024-01-26] MEDS ORDERED: MORPHINE SULFATE 4 MG INJ ONE (21:58)
[2024-01-26] MEDS: Zofran 4 MG/2 ML VIAL IV ONE (22:00)
[2024-01-26] MEDS: MORPHINE SULFATE 4 MG INJ IV ONE (22:00)
[2024-01-26 22:15] VITALS: BP 112/69; PULSE 94; RESP 20; O2SAT 95
--- NOTE | 2024-01-27 08:33 | XRAY ---
Indication: Dislocation. Comparison: Taken earlier in the day. 3 view right shoulder unchanged again demonstrating anterior inferior humeral head dislocation, osteopenia, moderate AC degenerative changes, and right neck surgical clips. No new abnormalities.
== END 2024-01-26 22:58 | disposition short-term general hospital (02) ==
LOC: ED 18:34
DX: S43.014A Anterior dislocation of right humerus, initial encounter (principal); V00.811A Fall from moving wheelchair (powered), initial encounter; Y93.K1 Activity, walking an animal; I12.0 Hypertensive chronic kidney disease with stage 5 chronic kidney disease or end stage renal disease; E11.22 Type 2 diabetes mellitus with diabetic chronic kidney disease; N18.6 End stage renal disease; E78.5 Hyperlipidemia, unspecified; E11.42 Type 2 diabetes mellitus with diabetic polyneuropathy; Z79.02 Long term (current) use of antithrombotics/antiplatelets; Z79.899 Other long term (current) drug therapy; Z99.2 Dependence on renal dialysis
CPT/HCPCS: 23650; 36000; 73030; 94799; 96374; 96375; 96376; 99284; 99285; J1171; J2250; J2270; J2405

== ENCOUNTER 2024-07-06 14:57 | Emergency (ER) | payer MEDICARE ==
[2024-07-06 15:13] VITALS: PULSE 95; RESP 18; TEMP 97.2; O2SAT 96
[2024-07-06 15:49] LABS: Absolute Neutrophil Ct (ANC) 8.82 x10^3/uL (1.78-5.38); BASOPHIL % 0.8 % (0.2-1.2); Basophil (Absolute #) 0.09 x10^3/uL (0.01-0.08); Eosinophil % 1.9 % (0.8-7.0); Eosinophil (Absolute #) 0.21 x10^3/uL (0.04-0.54); Hematocrit 46.2 % (40.1-51.0); IMMATURE GRAN # 0.11 x10^3u/L (0.001-0.031); Lymphocyte (Absolute #) 0.82 x10^3/uL (1.32-3.57); Lymphocytes % 7.6 % (21.8-53.1); Mean Cell Volume 95.5 fL (79.0-92.2); Mean Corpuscular Hgb Concent. 32.5 g/dL (32.3-36.5); Monocyte (Absolute #) 0.77 x10^3/uL (0.30-0.82); Monocytes % 7.1 % (5.3-12.2); Neutrophil % 81.6 % (34.0-67.9); Platelet Count 194 x10^3/uL (163-337); Red Blood Count 4.84 x10^6/uL (4.63-6.08); Red Cell Distribution Width 17.1 % (11.6-14.4); White Blood Count 10.8 x10^3/uL (4.23-9.07)
[2024-07-06 16:01] LABS: ALBUMIN 4.7 g/dL (3.5-5.0); ANION GAP 22.8 MEQ/L (5-15); BILIRUBIN,TOTAL 0.7 mg/dL (0.2-1.3); Calcium 8.8 mg/dL (8.4-10.2); Creatinine 1 7.07 mg/dL (0.66-1.25); EST GLOMERULAR FILTRATION RATE 8.6 ML/MIN; Potassium 4.5 mmol/L (3.5-5.1); Total Protein 8.4 g/dL (6.3-8.2)
--- NOTE | 2024-07-06 16:55 | XRAY ---
Indication: Osteomyelitis 4th finger. Multiple contiguous axial images obtained through left hand without contrast. Sagittal and coronal reformatted images obtained. Comparison: None Total amputation 2nd/3rd fingers. 4th fingernail demonstrates tiny nonspecific emphysema. Tuft 4th finger also demonstrates 2-3 mm linear subcutaneous opacity, possible foreign body. No acute fracture, dislocation, or osseous destructive process. Visualized noncontrasted soft tissues demonstrates scattered radial and ulnar artery calcifications. No focal solid/cystic soft tissue mass or abnormal fluid collection. Impression: 1. Tiny nonspecific emphysema 4th fingernail bed and tiny 4th finger tuft subcutaneous opacity possibly foreign body. 2. Chronic findings including amputation 2nd/3rd fingers and arteriosclerotic disease. 3. Remaining CT left hand without contrast is negative.
[2024-07-06 17:48] VITALS: BP 117/73
--- NOTE | 2024-07-06 18:03 | ERPHSYRPT ---
- History of Present Illness Source: patient Exam Limitations: no limitations Patient Subjective Stated Complaint: pt here for discoloration to left ring finger for over a week now. no fever Triage Nursing Assessment: pt alert, arrived per , pt wanted to stay in for triage, resp easy, skin w/d/p. pt is bilat below knee amputation, pt has multi fingers amputated on bothe hands. has dialysis fistula to right lower arm, pt states he had dialysis today Physician History: Patient's had some discoloration of his left middle finger. It is distal. It is bruising. He may have fallen. His said that he fell and may have hit that finger. Has been going on for about 2 weeks. Is basically just a large hematoma. Is not necrotic. He has good peripheral blood flow. His capillary refill is a little bit sluggish is about 2 seconds. But it was adequate. At this time the patient has come from an urgent care center who sent him here. I think that they were worried about osteomyelitis. Allergies/Adverse Reactions: No Known Drug Allergies Allergy (Verified 01/26/24 18:55) Home Medications: Gabapentin 300 mg PO BID 07/07/18 [History] Atorvastatin Calcium [Lipitor 40Mg] 40 mg PO DAILY 05/07/23 [History] Bupropion HCl Xl 150 mg [Wellbutrin XL 150 MG] 150 mg PO DAILY 05/07/23 [History] Clopidogrel Bisulfate [Clopidogrel] 75 mg PO DAILY 05/07/23 [History] Duloxetine HCl 30 mg [Cymbalta 30 MG Capsule] 60 mg PO DAILY 05/07/23 [History] Fexofenadine/Pseudoephedrine [Fexofenadine-Pse ER 180-240 Tb] 1 each PO DAILY 05/07/23 [History] Fluticasone/Umeclidin/Vilanter [Trelegy Ellipta 100-62.5-25] 1 each IH DAILY 05/07/23 [History] HydrALAzine HCL 25 MG TAB [Apresoline 25 MG TABLET] 50 mg PO DAILY 05/07/23 [History] Levothyroxine Sodium 50 Mcg [Synthroid 50 Mcg] 50 mcg PO DAILY 05/07/23 [History] Metoprolol Tartrate 50 mg [Lopressor 50 MG] 50 mg PO DAILY 05/07/23 [History] Sucroferric Oxyhydroxide [Velphoro] 500 mg PO DAILY 05/07/23 [History] Hx Tetanus, Diphtheria Vaccination/Date Given: Yes Hx Influenza Vaccination/Date Given: Yes Hx Pneumococcal Vaccination/Date Given: No Immunizations Up to Date: Yes Travel Risk - International Travel Have you traveled outside of the country in past 3 weeks: No - Emerging Infectious Disease Are you exhibiting symptoms associated with any current EIDs: No - Review of Systems Constitutional: No Symptoms Eyes: No Symptoms Respiratory: No Symptoms All Other Systems: Reviewed and Negative - Past Medical History Pertinent Past Medical History: Yes Neurological History: Peripheral Neuropathy ENT History: No Pertinent History Cardiac History: High Cholesterol, Hypertension Respiratory History: Asthma Endocrine Medical History: Hypothyroidism Musculoskeletal History: Arthritis GI Medical History: No Pertinent History History: Renal Disease Psycho-Social History: No Pertinent History Male Reproductive Disorders: No Pertinent History Other Medical History: dialysis fistula - Past Surgical History Past Surgical History: Yes Neuro Surgical History: No Pertinent History Cardiac: Cardiac Stent Respiratory: No Pertinent History Gastrointestinal: No Pertinent History Genitourinary: No Pertinent History Musculoskeletal: Amputation Male Surgical History: No Pertinent History Other Surgical History: permacath placed right chest (removed). july 2018 right below the knee amputation. AV fistula Left upper arm. L little toe removed 5 yr ago Significant Family History: no pertinent family hx - Social History Smoking Status: Never smoker Exposure to second hand smoke: Yes Drug Use: none - Social Determinants of Health Will the patient participate in the screening: Declined to provide - Nursing Vital Signs Nursing Vital Signs: Initial Vital Signs Blood Pressure 124/100 07/06/24 15:09 O2 Sat by Pulse Oximetry 97 07/06/24 15:09 Pain Scale Pain Intensity 0 - Physical Exam General Appearance: no apparent distress Eyes, Ears, Nose, Throat Exam: normal ENT inspection SpO2: 96 Comments: The patient's finger exam revealed some ecchymosis. It is on the palmar surface and the distal finger as well as underneath the nailbed. There is no areas of infection. His peripheral circulation was adequate. Ordered Tests: Active Orders 24 hr Category Date Time Status UPPER EXTREMITY W/O CONTRAST [CT] Stat Exams 07/06/24 15:19 Completed CBC W DIFF Stat Lab 04/16/25 15:40 Completed CMP Stat Lab 07/06/24 15:45 Completed Lab/Rad Data: Laboratory Result Diagrams 07/06/24 15:40 07/06/24 15:45 Laboratory Results 07/06/24 07/06/24 Range/Units 15:45 15:40 WBC 10.8 H (4.23-9.07) x10^3/uL RBC 4.84 (4.63-6.08) x10^6/uL Hgb 15.0 (13.7-17.5) g/dL Hct 46.2 (40.1-51.0) % MCV 95.5 H (79.0-92.2) fL MCH 31.0 (25.7-32.2) pg MCHC 32.5 (32.3-36.5) g/dL RDW 17.1 H (11.6-14.4) % Plt Count 194 (163-337) x10^3/uL MPV 9.0 L (9.4-12.4) fL Gran % 81.6 H (34.0-67.9) % Immature Gran % (Auto) 1.0 H (0.001-0.429) % Nucleat RBC Rel Count 0.0 (0.00-0.2) % Eos # (Auto) 0.21 (0.04-0.54) x10^3/uL Immature Gran # (Auto) 0.11 H (0.001-0.031) x10^3u/L Absolute Lymphs (auto) 0.82 L (1.32-3.57) x10^3/uL Absolute Monos (auto) 0.77 (0.30-0.82) x10^3/uL Absolute Nucleated RBC 0.00 (0.00-0.012) x10^3u/L Lymphocytes % 7.6 L (21.8-53.1) % Monocytes % 7.1 (5.3-12.2) % Eosinophils % 1.9 (0.8-7.0) % Basophils % 0.8 (0.2-1.2) % Absolute Granulocytes 8.82 H (1.78-5.38) x10^3/uL Basophils # 0.09 H (0.01-0.08) x10^3/uL Sodium 135 (135-145) mmol/L Potassium 4.5 (3.5-5.1) mmol/L Chloride 90 L (98-107) mmol/L Carbon Dioxide 26 (22-30) mmol/L Anion Gap 22.8 H (5-15) MEQ/L BUN 41 H (9-20) mg/dL Creatinine 7.07 H (0.66-1.25) mg/dL Estimated GFR 8.6 ML/MIN Glucose 274 H (74-106) mg/dL Calcium 8.8 (8.4-10.2) mg/dL Total Bilirubin 0.70 (0.2-1.3) mg/dL AST 33 (17-59) U/L ALT 29 (0-50) U/L Alkaline Phosphatase 139 H (38-126) U/L Serum Total Protein 8.4 H (6.3-8.2) g/dL Albumin 4.7 (3.5-5.0) g/dL - Progress Progress: unchanged Progress Note: I went ahead and got a CT to look for some osteo myelitis symptoms. There were none. He did have some evidence of bruising and possibly a small foreign body. At this timeI think the patient stable for discharge. His lab work all look good as well. I am going to have him follow-up with his orthopedic surgeon for evaluation. 07/06/24 18:01 - Departure Departure Disposition: Home Clinical Impression: Fingertip contusion Condition: Stable Critical Care Time: No Referrals: TEODORA GARCIA DO [Primary Care Provider] - Follow up/PCP as directed Instructions: Peripheral artery disease and claudication
== END 2024-07-06 18:10 | disposition home or self-care (01) ==
LOC: ED 14:57
DX: S60.032A Contusion of left middle finger without damage to nail, initial encounter (principal); W19.XXXA Unspecified fall, initial encounter; E78.5 Hyperlipidemia, unspecified; I12.0 Hypertensive chronic kidney disease with stage 5 chronic kidney disease or end stage renal disease; N18.6 End stage renal disease; Z99.2 Dependence on renal dialysis; Z79.02 Long term (current) use of antithrombotics/antiplatelets; Z79.899 Other long term (current) drug therapy
CPT/HCPCS: 36415; 73200; 80053; 85025; 99283; 99284

== ENCOUNTER 2025-02-01 07:37 | Emergency (ER) | payer MEDICARE, MEDICAID ==
[2025-02-01 08:16] VITALS: TEMP 99.6
[2025-02-01 08:21] LABS: BASOPHIL % 0.4 % (0.2-1.2); Basophil (Absolute #) 0.09 x10^3/uL (0.01-0.08); Eosinophil (Absolute #) 0.15 x10^3/uL (0.04-0.54); Hematocrit 39.8 % (40.1-51.0); Hemoglobin 12.1 g/dL (13.7-17.5); IMMATURE GRAN # 0.21 x10^3u/L (0.001-0.031); IMMATURE GRAN % 1.0 % (0.001-0.429); Lymphocyte (Absolute #) 0.95 x10^3/uL (1.32-3.57); Mean Corpuscular Hemoglobin 30.7 pg (25.7-32.2); Mean Corpuscular Hgb Concent. 30.4 g/dL (32.3-36.5); Monocyte (Absolute #) 1.40 x10^3/uL (0.30-0.82); NUCLEATED RBC # 0.03 x10^3u/L (0.00-0.012); NUCLEATED RBC % 0.1 % (0.00-0.2); Platelet Count 276 x10^3/uL (163-337); Red Blood Count 3.94 x10^6/uL (4.63-6.08); White Blood Count 22.1 x10^3/uL (4.23-9.07)
[2025-02-01 08:39] LABS: Calcium 9.1 mg/dL (8.4-10.2); Carbon Dioxide 26 mmol/L (22-30); Creatinine 1 9.61 mg/dL (0.66-1.25); EST GLOMERULAR FILTRATION RATE 5.9 ML/MIN; ETHYL ALCOHOL < 10 mg/dL (0-10); Glucose 175 mg/dL (74-106); Potassium 4.6 mmol/L (3.5-5.1); SGOT/AST 41 U/L (17-59); SGPT/ALT 21 U/L (0-50); Total Protein 7.6 g/dL (6.3-8.2)
--- NOTE | 2025-02-01 09:07 | ERPHSYRPT ---
- History of Present Illness Time Seen by Provider: 02/01/25 07:45 Source: patient Exam Limitations: no limitations Patient Subjective Stated Complaint: Pt. states, "I haven't felt good for a few days. My says I'm not remembering things or tracking. My mind feels foggy. I hit my hand a week ago and now its swollen and painful. I am a dialysis patient, but I didn't go today." Triage Nursing Assessment: Pt. arrives to room in motorized wheelchair, transferred to bed with assist of 2 d/t weakness. A&Ox3, but very lethargic and drowsy arouses easily. Skin P/W/D, Mucous Membranes dry, Resp. even unlabored, dry hacky cough noted. Abdomen round, soft, nontender. Pt. has bilateral BKA. Fistula in Rt. arm. Physician History: Patient is a 54-year-old male BMI of 39.3, history of type 2 diabetes, bilateral amputee end-stage renal disease on hemodialysis Thursday anuric hypertension hyperlipidemia, hypothyroidism cardiac stent presents to our ED for evaluation of generalized weakness and overall not feeling well x 2 days. patient states that his reports that he is not "remembering things". Patient states his mind feels "foggy". Patient adds that he injured his hand 1 week ago and states it is swollen and painful. Patient is scheduled for dialysis today. Patient's waste elimination is Dr. Kim out of [facility]. Patient adds that he feels slightly shortness of breath. He has had a dry cough. No chest pain. No nausea vomiting or diaphoresis. Patient voices no other complaints or concerns at this time. Portions of this note were created with voice recognition technology. There may be grammatical, spelling, punctuation or sound alike errors Timing/Duration: day(s) (2 days) Severity: moderate Modifying Factors: Improves With: nothing Associated Symptoms: denies symptoms Allergies/Adverse Reactions: No Known Drug Allergies Allergy (Verified 01/26/24 18:55) Home Medications: Gabapentin 300 mg PO BID 07/07/18 [History] Atorvastatin Calcium [Lipitor 40Mg] 40 mg PO DAILY 05/07/23 [History] Bupropion HCl Xl 150 mg [Wellbutrin XL 150 MG] 150 mg PO DAILY 05/07/23 [History] Clopidogrel Bisulfate [Clopidogrel] 75 mg PO DAILY 05/07/23 [History] Duloxetine HCl 30 mg [Cymbalta 30 MG Capsule] 60 mg PO DAILY 05/07/23 [History] Fexofenadine/Pseudoephedrine [Fexofenadine-Pse ER 180-240 Tb] 1 each PO DAILY 05/07/23 [History] Fluticasone/Umeclidin/Vilanter [Trelegy Ellipta 100-62.5-25] 1 each IH DAILY 05/07/23 [History] HydrALAzine HCL 25 MG TAB [Apresoline 25 MG TABLET] 50 mg PO DAILY 05/07/23 [History] Levothyroxine Sodium 50 Mcg [Synthroid 50 Mcg] 50 mcg PO DAILY 05/07/23 [History] Metoprolol Tartrate 50 mg [Lopressor 50 MG] 50 mg PO DAILY 05/07/23 [History] Sucroferric Oxyhydroxide [Velphoro] 500 mg PO DAILY 05/07/23 [History] Hx Tetanus, Diphtheria Vaccination/Date Given: Yes Hx Influenza Vaccination/Date Given: Yes Hx Pneumococcal Vaccination/Date Given: No Travel Risk - International Travel Have you traveled outside of the country in past 3 weeks: No - Emerging Infectious Disease Are you exhibiting symptoms associated with any current EIDs: No - Review of Systems All Other Systems: Reviewed and Negative - Past Medical History Pertinent Past Medical History: Yes Neurological History: Peripheral Neuropathy ENT History: No Pertinent History Cardiac History: High Cholesterol, Hypertension Respiratory History: Asthma Endocrine Medical History: Hypothyroidism Musculoskeletal History: Arthritis GI Medical History: No Pertinent History History: Renal Disease Psycho-Social History: No Pertinent History Male Reproductive Disorders: No Pertinent History Other Medical History: dialysis fistula - Past Surgical History Past Surgical History: Yes Neuro Surgical History: No Pertinent History Cardiac: Cardiac Stent Respiratory: No Pertinent History Gastrointestinal: No Pertinent History Genitourinary: No Pertinent History Musculoskeletal: Amputation Male Surgical History: No Pertinent History Other Surgical History: permacath placed right chest (removed). july 2018 right below the knee amputation. AV fistula Left upper arm. L little toe removed 5 yr ago Significant Family History: no pertinent family hx - Social History Smoking Status: Never smoker Exposure to second hand smoke: Yes Drug Use: none - Social Determinants of Health Do you worry about a steady place to live?: Yes Do you have any problems with any of the following?: No known problems In the past 12 months,have you had to go without utilities?: No Transportation Issues: No Has anyone in your support network made you feel unsafe?: No Have you or anyone in your house had to go w/o enough food: No - Nursing Vital Signs Nursing Vital Signs: Initial Vital Signs Temperature 99.6 F 02/01/25 07:37 Pulse Rate 85 02/01/25 07:37 Respiratory Rate 18 02/01/25 07:37 Blood Pressure 113/94 02/01/25 07:37 O2 Sat by Pulse Oximetry 95 02/01/25 07:37 Pain Scale Pain Intensity 0 - Physical Exam General Appearance: no apparent distress, alert Eye Exam: PERRL/EOMI Ears, Nose, Throat Exam: normal ENT inspection Neck Exam: normal inspection, full range of motion Respiratory Exam: diminished breath sounds Cardiovascular Exam: regular rate/rhythm, normal heart sounds, other (Bilateral BKA) Gastrointestinal/Abdomen Exam: soft Extremity Exam: other (Bilateral BKA. Amputation of left second third fourth digit. Amputation of right index finger. No obvious signs of infection. 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 Incidental left maxillary sinus disease) Ordered Tests: Active Orders 24 hr Category Date Time Status Graduate Student Instructor STAT Care 02/01/25 07:54 Completed EKG-ER Only STAT Care 02/01/25 07:53 Completed IV Insertion STAT Care 02/01/25 07:53 Completed Pulse Oximetry (ED) STAT Care 02/01/25 07:53 Completed CHEST 1 VIEW (PORTABLE) Stat Exams 02/01/25 09:24 Completed HAND (MINIMUM 3 VIEWS) Stat Exams 02/01/25 09:42 Completed HAND (MINIMUM 3 VIEWS) Stat Exams 02/01/25 09:43 Completed HEAD WITHOUT CONTRAST [CT] Stat Exams 02/01/25 07:55 Completed BLOOD CULTURE Stat Lab 02/01/25 08:15 Received CBC W DIFF Stat Lab 02/01/25 08:08 Completed CMP Stat Lab 02/01/25 08:08 Completed ETHYL ALCOHOL Stat Lab 02/01/25 08:08 Completed Lactic Acid Stat Lab 02/01/25 07:55 Completed Lactic Acid Stat Lab 02/01/25 10:13 Completed MAGNESIUM Stat Lab 02/01/25 08:08 Completed POCT GLUCOSE Stat Lab 02/01/25 14:00 Completed TROPONIN Q4H Lab 02/01/25 08:08 Completed TROPONIN Q4H Lab 02/01/25 11:58 Completed TROPONIN Q4H Lab 02/01/25 16:20 Completed Medication Summary Discontinued Medications Generic Name Dose Route Start Last Admin Trade Name Freq PRN Reason Stop Dose Admin Azithromycin Confirm 02/01/25 10:31 Azithromycin Inj Administered 02/01/25 10:32 Dose 500 mg IV .STK-MED ONE Ceftriaxone Sodium 2 gm in 100 mls @ 200 mls/hr 02/01/25 10:19 02/01/25 11:42 Rocephin 2 Gm/100 Ml Nacl IV 02/01/25 10:48 Infused STAT ONE Infusion Azithromycin 500 mg/ Sodium 250 mls @ 250 mls/hr 02/01/25 10:19 02/01/25 12:45 Chloride IV 02/01/25 11:18 Infused STAT STA Infusion Ceftriaxone Sodium Confirm 02/01/25 10:31 Rocephin 2 Gm/100 Ml Nacl Administered 02/01/25 10:32 Dose 2 gm in 100 mls @ ud IV .STK-MED ONE Sodium Chloride Confirm 02/01/25 10:33 Sodium Chloride 0.9% 250 Ml Administered 02/01/25 10:34 Dose 250 mls @ ud IV .STK-MED ONE Lab/Rad Data: Laboratory Result Diagrams 02/01/25 08:08 02/01/25 08:08 Laboratory Results 02/01/25 02/01/25 02/01/25 Range/Units 16:20 14:00 11:58 WBC (4.23-9.07) x10^3/uL RBC (4.63-6.08) x10^6/uL Hgb (13.7-17.5) g/dL Hct (40.1-51.0) % MCV (79.0-92.2) fL MCH (25.7-32.2) pg MCHC (32.3-36.5) g/dL RDW (11.6-14.4) % Plt Count (163-337) x10^3/uL MPV (9.4-12.4) fL Gran % (34.0-67.9) % Immature Gran % (Auto) (0.001-0.429) % Nucleat RBC Rel Count (0.00-0.2) % Eos # (Auto) (0.04-0.54) x10^3/uL Immature Gran # (Auto) (0.001-0.031) x10^3u/L Absolute Lymphs (auto) (1.32-3.57) x10^3/uL Absolute Monos (auto) (0.30-0.82) x10^3/uL Absolute Nucleated RBC (0.00-0.012) x10^3u/L Lymphocytes % (21.8-53.1) % Monocytes % (5.3-12.2) % Eosinophils % (0.8-7.0) % Basophils % (0.2-1.2) % Absolute Granulocytes (1.78-5.38) x10^3/uL Basophils # (0.01-0.08) x10^3/uL Sodium (135-145) mmol/L Potassium (3.5-5.1) mmol/L Chloride (98-107) mmol/L Carbon Dioxide (22-30) mmol/L Anion Gap (5-15) MEQ/L BUN (9-20) mg/dL Creatinine (0.66-1.25) mg/dL Estimated GFR ML/MIN Glucose (74-106) mg/dL POC Glucometer 125 H (74 to 106) mg/dL Lactic Acid (0.4-2.0) Calcium (8.4-10.2) mg/dL Magnesium (1.6-2.3) mg/dL Total Bilirubin (0.2-1.3) mg/dL AST (17-59) U/L ALT (0-50) U/L Alkaline Phosphatase (38-126) U/L Troponin I 0.244 H* 0.212 H* (0.000-0.033) ng/mL Serum Total Protein (6.3-8.2) g/dL Albumin (3.5-5.0) g/dL Ethyl Alcohol (0-10) mg/dL Influenza Type A Ag (NEGATIVE) Influenza Type B Ag (NEGATIVE) RSV (PCR) (NEGATIVE) SARS-CoV-2 (PCR) (NEGATIVE) 02/01/25 02/01/25 02/01/25 Range/Units 10:15 10:13 08:08 WBC (4.23-9.07) x10^3/uL RBC (4.63-6.08) x10^6/uL Hgb (13.7-17.5) g/dL Hct (40.1-51.0) % MCV (79.0-92.2) fL MCH (25.7-32.2) pg MCHC (32.3-36.5) g/dL RDW (11.6-14.4) % Plt Count (163-337) x10^3/uL MPV (9.4-12.4) fL Gran % (34.0-67.9) % Immature Gran % (Auto) (0.001-0.429) % Nucleat RBC Rel Count (0.00-0.2) % Eos # (Auto) (0.04-0.54) x10^3/uL Immature Gran # (Auto) (0.001-0.031) x10^3u/L Absolute Lymphs (auto) (1.32-3.57) x10^3/uL Absolute Monos (auto) (0.30-0.82) x10^3/uL Absolute Nucleated RBC (0.00-0.012) x10^3u/L Lymphocytes % (21.8-53.1) % Monocytes % (5.3-12.2) % Eosinophils % (0.8-7.0) % Basophils % (0.2-1.2) % Absolute Granulocytes (1.78-5.38) x10^3/uL Basophils # (0.01-0.08) x10^3/uL Sodium (135-145) mmol/L Potassium (3.5-5.1) mmol/L Chloride (98-107) mmol/L Carbon Dioxide (22-30) mmol/L Anion Gap (5-15) MEQ/L BUN (9-20) mg/dL Creatinine (0.66-1.25) mg/dL Estimated GFR ML/MIN Glucose (74-106) mg/dL POC Glucometer (74 to 106) mg/dL Lactic Acid 1.4 (0.4-2.0) Calcium (8.4-10.2) mg/dL Magnesium (1.6-2.3) mg/dL Total Bilirubin (0.2-1.3) mg/dL AST (17-59) U/L ALT (0-50) U/L Alkaline Phosphatase (38-126) U/L Troponin I 0.172 H* (0.000-0.033) ng/mL Serum Total Protein (6.3-8.2) g/dL Albumin (3.5-5.0) g/dL Ethyl Alcohol (0-10) mg/dL Influenza Type A Ag NEGATIVE (NEGATIVE) Influenza Type B Ag NEGATIVE (NEGATIVE) RSV (PCR) NEGATIVE (NEGATIVE) SARS-CoV-2 (PCR) NEGATIVE (NEGATIVE) 02/01/25 02/01/25 02/01/25 Range/Units 08:08 08:08 07:55 WBC 22.1 H (4.23-9.07) x10^3/uL RBC 3.94 L (4.63-6.08) x10^6/uL Hgb 12.1 L (13.7-17.5) g/dL Hct 39.8 L (40.1-51.0) % MCV 101.0 H (79.0-92.2) fL MCH 30.7 (25.7-32.2) pg MCHC 30.4 L (32.3-36.5) g/dL RDW 18.1 H (11.6-14.4) % Plt Count 276 (163-337) x10^3/uL MPV 9.2 L (9.4-12.4) fL Gran % 87.3 H (34.0-67.9) % Immature Gran % (Auto) 1.0 H (0.001-0.429) % Nucleat RBC Rel Count 0.1 (0.00-0.2) % Eos # (Auto) 0.15 (0.04-0.54) x10^3/uL Immature Gran # (Auto) 0.21 H (0.001-0.031) x10^3u/L Absolute Lymphs (auto) 0.95 L (1.32-3.57) x10^3/uL Absolute Monos (auto) 1.40 H (0.30-0.82) x10^3/uL Absolute Nucleated RBC 0.03 H (0.00-0.012) x10^3u/L Lymphocytes % 4.3 L (21.8-53.1) % Monocytes % 6.3 (5.3-12.2) % Eosinophils % 0.7 L (0.8-7.0) % Basophils % 0.4 (0.2-1.2) % Absolute Granulocytes 19.30 H (1.78-5.38) x10^3/uL Basophils # 0.09 H (0.01-0.08) x10^3/uL Sodium 130 L (135-145) mmol/L Potassium 4.6 (3.5-5.1) mmol/L Chloride 86 L (98-107) mmol/L Carbon Dioxide 26 (22-30) mmol/L Anion Gap 23.5 H (5-15) MEQ/L BUN 47 H (9-20) mg/dL Creatinine 9.61 H (0.66-1.25) mg/dL Estimated GFR 5.9 ML/MIN Glucose 175 H (74-106) mg/dL POC Glucometer (74 to 106) mg/dL Lactic Acid 2.1 H (0.4-2.0) Calcium 9.1 (8.4-10.2) mg/dL Magnesium 1.7 (1.6-2.3) mg/dL Total Bilirubin 1.00 (0.2-1.3) mg/dL AST 41 (17-59) U/L ALT 21 (0-50) U/L Alkaline Phosphatase 147 H (38-126) U/L Troponin I (0.000-0.033) ng/mL Serum Total Protein 7.6 (6.3-8.2) g/dL Albumin 3.7 (3.5-5.0) g/dL Ethyl Alcohol < 10 (0-10) mg/dL Influenza Type A Ag (NEGATIVE) Influenza Type B Ag (NEGATIVE) RSV (PCR) (NEGATIVE) SARS-CoV-2 (PCR) (NEGATIVE) - Progress Progress: improved Progress Note: Patient accepted by Dr. Villalpando at 10:14 AM. (hospitalist at [facility]) Patient is a 54-year-old male BMI of 39.3, history of type 2 diabetes, bilateral amputee end-stage renal disease on hemodialysis Thursday anuric hypertension hyperlipidemia, hypothyroidism cardiac stent presents to our ED for evaluation of generalized weakness and overall not feeling well x 2 days. patient states that his reports that he is not "remembering things". Physical exam reveals a slightly lethargic male. Patient otherwise conversant and easily responsive to verbal and tactile stimulation. No acute distress. Workup reveals a leukocytosis of 22,000. Hyponatremia of 130. Troponin elevated however this is likely secondary to end-stage renal disease. Patient has an anion gap acidosis of 23. Patient was slightly hypoxic. Oxygen via nasal cannula lactic acid initially 2.1. Initiated. RSV influenza COVID- negative. Patient will require transfer for hemodialysis. Patient due for hemodialysis today. Plan of care discussed with patient. He agrees to transfer to [facility] for further evaluation and treatment. Portions of this note were created with voice recognition technology. There may be grammatical, spelling, punctuation or sound alike errors History obtained from patient. Differential diagnosis includes sepsis, metabolic derangement, encephalopathy Complexity of problems addressed is moderate acute complicated. No critical care time. Complexity of data reviewed and analyzed is extensive. Test ordered/reviewed results analyzed and correlated clinically with history and physical exam. Management discussed with Dr. Samson hospitalist at [facility] who accepts transfer. Risk of complication and or risk of morbidity/mortality of patient management is high. Patient requires hospitalization/transfer to higher level of care. Vital stable. Time spent to transfer patient is approximately 20 minutes. Plan of care established for shared decision making. No social determinants of health present to impede follow-up. Portions of this note were created with voice recognition technology. There may be grammatical, spelling, punctuation or sound alike errors 11/13/25 01:29 Counseled pt/family regarding: lab results, diagnosis, rad results - Departure Departure Disposition: Transfer Clinical Impression: Leukocytosis, Hyponatremia, End stage renal disease, Generalized weakness, High anion gap metabolic acidosis, Elevated troponin, Hypoxia, Pneumonia, Lactic acidosis, Pleural effusion Condition: Stable Critical Care Time: No Referrals: TEODORA GARCIA DO [Primary Care Provider, [facility]] - Follow up/PCP as directed
--- NOTE | 2025-02-01 09:36 | XRAY ---
Indication: Altered mental status. Multiple contiguous axial images obtained through the head without contrast. Comparison: None Age-appropriate global atrophy and moderate periventricular degenerative microischemia bilaterally. No acute intracranial hemorrhage, abnormal extra-axial fluid collection, or mass effect. 4th ventricle is midline without hydrocephalus. Bony calvarium intact. Near complete opacification left maxillary sinus. Remaining visualized paranasal sinuses and mastoid air cells clear. Impression: Nonacute senile brain. Incidental left maxillary sinus disease.
--- NOTE | 2025-02-01 09:42 | XRAY ---
Indication: Short of breath. Comparison: January 19, 2023 Portable chest demonstrates new left base infiltrate/atelectasis with small effusion. Right lung remains clear. Heart remains enlarged again with central vascular prominence. Bony thorax intact again with osteopenia and degenerative changes.
--- NOTE | 2025-02-01 10:09 | XRAY ---
Indication: Pain. Comparison: August 22, 2024 3 view left hand demonstrates interval total amputation 4th digit. Remaining hand unchanged again with total amputation 2/3 digits, 2nd metacarpal head punctate soft tissue foreign body, and mild scattered vascular calcifications. No acute bony, articular, or soft tissue abnormalities.
--- NOTE | 2025-02-01 10:11 | XRAY ---
Indication: Pain. Comparison: None 3 view right hand demonstrates remote partial amputation distal 1st/mid to distal 2nd digits and distal forearm vascular clips with scattered vascular calcifications. 4th digit demonstrates unknown metallic wire/lead. No acute bony, articular, or soft tissue abnormalities.
[2025-02-01] MEDS ORDERED: ROCEPHIN 2 GM/100 ML NACL 2 GM/100 ML IVPB IV ONE (10:31)
[2025-02-01] MEDS ORDERED: ZITHROMAX IV IV ONE (10:31)
[2025-02-01] MEDS: ZITHROMAX IV*** 500 MG in Sodium Chloride 0.9% 250 ML 250 ML IV STA (10:36)
[2025-02-01] MEDS: ROCEPHIN 2 GM/100 ML NACL 2 GM/100 ML IVPB IV ONE (10:37)
[2025-02-01 10:54] LABS: INFLUENZA A NEGATIVE (NEGATIVE); INFLUENZA B NEGATIVE (NEGATIVE); RESPIRATORY SYNCTIAL VIRUS NEGATIVE (NEGATIVE); SARS-CoV-2 Xpert Express NEGATIVE (NEGATIVE)
[2025-02-01 15:05] VITALS: PULSE 76
[2025-02-01 16:08] VITALS: BP 126/72; RESP 20
[2025-02-02 01:28] VITALS: O2SAT 91
== END 2025-02-01 16:55 | disposition short-term general hospital (02) ==
LOC: ED 07:37
DX: J18.9 Pneumonia, unspecified organism (principal); E11.22 Type 2 diabetes mellitus with diabetic chronic kidney disease; I12.0 Hypertensive chronic kidney disease with stage 5 chronic kidney disease or end stage renal disease; N18.6 End stage renal disease; D72.829 Elevated white blood cell count, unspecified; E87.1 Hypo-osmolality and hyponatremia; R53.1 Weakness; E87.20 Acidosis, unspecified; R77.8 Other specified abnormalities of plasma proteins; R09.02 Hypoxemia; J90 Pleural effusion, not elsewhere classified; R41.82 Altered mental status, unspecified; Z79.02 Long term (current) use of antithrombotics/antiplatelets; Z79.899 Other long term (current) drug therapy